=== PATIENT | female | born 1970 | race Caucasian/White ===

== ENCOUNTER → 2016-09-21 | Day surgery (SDC) | payer OTHER ==
[~2016-09-21] VITALS: Ht 165.1 cm; Wt 62.6 kg
[~2016-09-21] MED LIST: CALCIUM CARBON200 MG PO; FERROUS SULFAT325 M2 PO; PROTONIX40 M3 IV; PROTONIX40 M3 PO; SENNA PLUS TAB1 EACH PO; TRAMADOL HCL50 M1 PO; TYLENOL325 M1 PO
--- NOTE | 2016-09-21 14:06 | Operative Report ---
Operative/Inv Procedure Report Surgery Date: 09/21/16 Name of Procedure: Left partial mastectomy with wire localization Pre-Operative Diagnosis: Left breast DCIS, stage 0 breast cancer Post-Operative Diagnosis: Same Estimated Blood Loss: less than 50ml Surgeon/Typesetter Apprentice: DESTINEE WILLINGHAM MD Anesthesia: local monitored anesthesi Specimens: Left lumpectomy, cranial margin, caudal margin, medial margin, lateral margin Operative/Procedure Note Note: Patient was brought to the operating room after preoperative Wire localization was performed and the films reviewed. Clindamycin was given and left breast Just sterile fashion ChloraPrep. Anesthesia of 1% lidocaine exception Marcaine was given and a curvilinear incision was made in the left axilla. As brought into the incision. The air concern was dissected. A significant hematoma was present from the biopsy. The dissection went from the dermis down to the pectoralis fascia to encompass the hematoma. Specimen was removed and marked for orientation using margin map. Intraoperative x-ray confirmed the presence of the clip in the specimen. Additional margins were taken in the medial, lateral, cranial, caudal physicians. Clips were Used to jung the margins a lumpectomy bed. Deep tissue was proximal made using interrupted Vicryl sutures. Hemostasis was adequate. Skin was closed using a running Monocryl subcuticular stitch. Steri-Strips and sterile dressings were applied and the patient transferred to the recovery room in satisfactory condition having tolerated the procedure well.
--- NOTE | 2016-09-21 14:19 | MAMMOGRAPHY REPORT ---
EXAMINATION: MM NEEDLE LOCALIZATION SPECIMEN BREAST, LEFT CLINICAL INFORMATION: Excision of DCIS and atypical ductal hyperplasia from the upper outer quadrant of the left breast. COMPARISON: Preoperative needle localization films. TECHNIQUE SPECIMEN RADIOGRAPH: Single radiograph of the excised breast tissue is performed. FINDINGS SPECIMEN RADIOGRAPH: The specimen shows the needle and hookwire are delivered intact. The biopsy clip marker is identified in the specimen. Results were called to Dr. Grey in the operating room at the time of imaging 09/21/2016, 12:15 PM. IMPRESSION: Postoperative specimen radiograph shows excision of the targeted clip and the localization wire.
== END ==
LOC: STS 01:36 → CBW.IIU 08:30 → CBW.MAMMO 09:00
DX: D05.12 Intraductal carcinoma in situ of left breast (principal); E05.00 Thyrotoxicosis with diffuse goiter without thyrotoxic crisis or storm
CPT/HCPCS: 81025; 88305; 88307; J2001; J2250

== ENCOUNTER → 2016-10-05 | Day surgery (SDC) | payer OTHER ==
[~2016-10-05] VITALS: Ht 165.1 cm; Wt 63.5 kg
--- NOTE | 2016-10-05 09:04 | Operative Report ---
Operative/Inv Procedure Report Surgery Date: 10/05/16 Name of Procedure: Reexcision left lumpectomy Pre-Operative Diagnosis: Left breast DCIS, close caudal margin Post-Operative Diagnosis: Same Estimated Blood Loss: scant Surgeon/Fleet Mechanic: MAULIK CHOWDHURY,Rosanna Abarca, PAC Anesthesia: local monitored anesthesi Specimens: Caudal margin, Marker Mabry true margin Operative/Procedure Note Note: Patient brought to the operating room on 10/05/2016. She was placed supine on the table in given clindamycin for antibiotics. The left breast was prepped and draped in sterile fashion using ChloraPrep. Local anesthesia of 1% lidocaine mixed half percent Marcaine was given. The previous incision was opened. Seroma was drained. Cavity was explored and the caudal margin was excised widely. A caudal Marker was placed on the true margin. The wound was irrigated with sterile saline and hemostasis was achieved. A 2 x 3 low profile BioSorb Marker was placed and fastened to the surrounding breast tissue using Maxon sutures. Deep tissue was proximal made using interrupted Vicryl sutures over the marker. Skin was closed using a running Biosyn subcuticular stitch. Steri- Strips and sterile dressings were applied and the patient was transferred to the recovery room in satisfactory condition having tolerated the procedure well.
== END ==
LOC: STS 01:52
DX: D05.12 Intraductal carcinoma in situ of left breast (principal)
CPT/HCPCS: 81025; 88307; C9728; J0690; J1885; J2250

== ENCOUNTER 2016-10-13 14:57 | Inpatient (IN) | payer OTHER ==
[~2016-10-13] VITALS: Ht 165.1 cm; Wt 63.6 kg
--- NOTE | 2016-10-13 15:08 | NUR ---
TRIAGE: PATIENT TO ER FROM HOME S/P L LUMPECTOMY LAST WEEK, REPORTS "THEY GAVE ME PERCOCET AND I GOT CHEST HEAVINESS, BUT I STOPPED IT A FEW DAYS AGO AND THE HEAVINESS HASN'T GONE AWAY." 08/10 PAIN ATPRESENT, "THOUGH IT GOES UP AND DOWN." DENIES SOB/N/V/D.
--- NOTE | 2016-10-13 15:20 | NUR ---
PT PLACED ON MONITOR, NSR NOTED. REPORTS THAT YESTERDAY PASSED OUT ON HALLWAY FLOOR. STATES THAT SHE HAD SOME WINE 5-6 HOURS PRIOR. HAS BEEN TAKING PERCOCET FOR LEFT BREAST LUMPECTOMY. REPORTS PAIN IN LEFT BREAST THAT SPREADS ACROSS AND STERNAL PAIN. THE PAIN COMES AND GOES AND "IT KNOCKS THE WIND OUT OF ME".
[2016-10-13 15:58] LABS: ABSOLUTE BASOPHIL COUNT 0.1 /CUMM (0.0-0.2); ABSOLUTE EOSINOPHIL COUNT 0.1 /CUMM (0.0-0.7); ABSOLUTE GRANULOCYTE CT 9.1 /CUMM (1.4-6.5); ABSOLUTE LYMPH COUNT 1.5 /CUMM (1.2-3.4); ABSOLUTE MONOCYTE COUNT 0.8 /CUMM (0.10-0.60); BASOPHIL % 0.9 % (0.0-2.0); EOSINOPHIL % 0.8 % (0-5); GRANULOCYTE % 78.7 % (42.2-75.2); MEAN CORPUSCULAR HGB 31.3 PG (27.0-31.0); MEAN CORPUSCULAR HGB CONC 33.5 G/DL (33.0-37.0); MEAN CORPUSCULAR VOLUME 93.3 FL (81.0-99.0); MEAN PLATELET VOLUME 7.5 FL (7.4-10.4); PLATELET COUNT 324 /CUMM (130-400); RBC DISTRIBUTION WIDTH 13.6 % (11.5-14.5); RED BLOOD CELL CT 1.89 /CUMM (4.20-5.40); WHITE BLOOD CELL COUNT 11.6 /CUMM (4.8-10.8)
[2016-10-13 16:04] LABS: PT 11.8 SEC (9.4-12.5)
[2016-10-13 16:08] LABS: HEMATOCRIT 17.7 % (37-47)
--- NOTE | 2016-10-13 16:12 | NUR ---
CRITICAL TEST RESULTS [id number] DELMA LEVY 46 F TESTS AND RESULTS: HGB 5.9 HCT17.7 Results received and read back by: GUMARO WILDE Results received date and time: 10/13/16 1613 The following provider was notified of the results, and read the results back: SHALONDA CHOWDHURY Notified date and time: 10/13/16 at 1610
--- NOTE | 2016-10-13 16:48 | NUR ---
PER HOUSESTAFF PT TO BE ADMITTED TO ICU. PINK TOP SENT TO LAB
--- NOTE | 2016-10-13 16:53 | ED CARDIAC/CP/PALPITATIONS ---
See Addendum History of Present Illness General Chief Complaint: General Adult Stated Complaint: CHEST HEAVINESS,LIGHTHEADED, LUMPECTOMY WEEK PRIOR Source: patient Exam Limitations: no limitations Vital Signs & Intake/Output Vital Signs & Intake/Output Vital Signs Date Time Temp Pulse Resp B/P B/P Pulse O2 O2 Flow FiO2 Mean Ox Delivery Rate 10/14 1200 98 Room Air 10/14 0800 97.7 82 18 96/68 100 Room Air 10/14 0800 100 Room Air 10/14 0400 98 Room Air 10/14 0000 99 Room Air 10/14 0000 98.3 90 23 102/60 99 Room Air 10/13 2000 100 Room Air 10/13 1840 100.6 90 20 108/64 99 Room Air 10/13 1825 100.7 10/13 1825 100.6 97 20 115/72 98 Room Air 10/13 1825 100.7 97 20 115/72 99 Room Air 10/13 1729 100.6 10/13 1658 100.6 ED Intake and Output 10/14 0000 10/13 1200 Intake Total 630 Output Total 400 Balance 230 Intake, Blood 380 Product Intake, IV 250 Intake, Oral 0 Number 0 Bowel Movements Output, Urine 400 Patient 140 lb Weight Weight Bed scale Measurement Method Allergies Coded Allergies: azithromycin (From ZITHROMAX) (DIARRHEA 10/13/16) cephalexin (From KEFLEX) (DIARRHEA 10/13/16) tetracycline (DIARRHEA 10/13/16) Reconcile Medications No Known Home Medications Triage Note: TRIAGE: PATIENT TO ER FROM HOME S/P L LUMPECTOMY LAST WEEK, REPORTS "THEY GAVE ME PERCOCET AND I GOT CHEST HEAVINESS, BUT I STOPPED IT A FEW DAYS AGO AND THE HEAVINESS HASN'T GONE AWAY." / PAIN ATPRESENT, "THOUGH IT GOES UP AND DOWN." DENIES SOB/N/V/D. Triage Nurses Notes Reviewed? yes : No Patient currently breastfeeds: No HPI: Ms. Garcia is a 46 yo f w/ PMH of DCIS s/p 2 lumpectomy of L breast presenting to ED for fatigue, SOB and dizziness. Patient states that she had a lumpectomy on this past Saturday. Ever since she's been having increased fatigue and shortness of breath. She feels like she is unable to get a full breath in. She went to work out 2 times within the past 2 weeks and she was unable to finish her workout due to fatigue. Prior to the diagnosis of DCIS, the patient is otherwise completely healthy. She endorses subjective chills, but no fever. She denies a cough, abdominal pain, nausea, vomiting or diarrhea. She does state that she did have one melanotic stool this past week. She endorses dizziness with standing. No chest pain but she feels like her chest is tight. (JAZMINE LIZ MD) Past History Travel History Traveled to [place] past 21 day No Medical History Any Pertinent Medical History? 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 No (CONCHIS CHOWDHURY,GENEVIEVE Grace) Review of Systems Review of Systems Constitutional: Reports: see HPI, weakness. EENTM: Reports: no symptoms. Respiratory: Reports: see HPI, short of breath. Cardiovascular: Reports: no symptoms. GI: Reports: no symptoms. Genitourinary: Reports: no symptoms. Musculoskeletal: Reports: no symptoms. Skin: Reports: no symptoms. Neurological/Psychological: Reports: no symptoms. Hematologic/Endocrine: Reports: no symptoms. Immunologic/Allergic: Reports: no symptoms. All Other Systems: Reviewed and Negative (CONCHIS CHOWDHURY,GENEVIEVE Grace) Physical Exam Physical Exam General Appearance: well developed/nourished, alert, awake, moderate distress Head: atraumatic, normal appearance Eyes: Bilateral: PERRL, EOMI, pale conjunctivae. Ears, Nose, Throat: normal pharynx, normal ENT inspection Neck: normal inspection, supple, full range of motion Respiratory: normal breath sounds, chest non-tender, no respiratory distress, lungs clear Cardiovascular: regular rate/rhythm, normal peripheral pulses Gastrointestinal: normal bowel sounds, soft, non-tender, no organomegaly Rectal: heme positive stool Back: normal inspection Extremities: normal inspection, normal capillary refill, normal range of motion, no edema Neurologic/Psych: no motor/sensory deficits, awake, alert, oriented x 3, normal mood/affect Skin: intact, normal color Lymphatic: no anterior cervical [place] Core Measures ACS in differential dx? No Severe Sepsis Present: No Septic Shock Present: No (CONCHIS CHOWDHURY,GENEVIEVE Grace) Progress Differential Diagnosis: cholecystitis, hypovolemia, pneumonia, pneumothorax, pulmonary embolism, sepsis, anemia Plan of Care: Orders Procedure Date/time Status Nothing by Mouth 10/15 B Active CBC WITHOUT DIFFERENTIAL 10/15 0600 Active BASIC ELECTROLYTES PLUS BUN&CR 10/15 0600 Active Full Liquid Diet 10/14 D Complete Nothing by Mouth 10/14 B Complete CBC WITHOUT DIFFERENTIAL 10/14 1900 Active Transfer Disposition 10/14 1432 Active BLOOD PRODUCT PICKUP 10/14 1345 Active LEUKOCYTE POOR (PACKED CELLS) 10/14 1235 Active Transfer patient to 10/14 1234 Active CBC WITHOUT DIFFERENTIAL 10/14 0500 Complete TROPONIN LEVEL 10/14 0300 Complete EKG 10/14 0300 Active Wound Care/Dressing 10/14 0258 Active CBC WITHOUT DIFFERENTIAL 10/14 0110 Complete ICU LAB BUNDLE 10/14 UNK Complete CBC WITHOUT DIFFERENTIAL 10/13 2200 Complete BLOOD PRODUCT PICKUP 10/13 2128 Active TROPONIN LEVEL 10/13 2100 Complete EKG 10/13 2100 Active Wound Care/Dressing 10/13 2032 Complete Weight 10/13 2032 Active VTE Mechanical Prophylaxis 10/13 2032 Complete Vital Signs 10/13 2032 Active Turn and Reposition 10/13 2032 Complete Drains/Tubes 10/13 2032 Complete Teach/Educate 10/13 2032 Active Skin Integrity Protocol 10/13 2032 Active Skin/Pressure Ulcer Assess (Sk 10/13 2032 Active Precautions 10/13 2032 Active Pain Treatment and Response 10/13 2032 Active Nutritional Intake, Monitor 10/13 2032 Active Isolation 10/13 2032 Active CIWA 10/13 2032 Complete Patient Care Conference 10/13 2032 Active Activity/Ambulation 10/13 2032 Active Pathway - chart 10/13 184 Active PHYSICIAN CONSULT 10/13 1837 Active Add-on Test (ER Only) 10/13 1836 Active Add-on Test (ER Only) 10/13 1826 Active Add-on Test (ER Only) 10/13 1820 Active LACTIC ACID 10/13 1812 Complete BLOOD PRODUCT PICKUP 10/13 1751 Active CULTURE,URINE 10/13 1745 Active Admit to inpatient 10/13 1735 Active BLOOD CULTURE 10/13 1727 Active Pathway - chart 10/13 1726 Active Misc Message 10/13 1726 Active Code Status 10/13 1726 Active Patient Data 10/13 1706 Active URINALYSIS 10/13 1701 Complete TROPONIN LEVEL 10/13 1545 Complete House Staff 10/13 UNK Active Vital Signs 10/13 UNK Active Telemetry/Timber Repairer 10/13 UNK Active Intake & Output 10/13 UNK Active Hemoccult 10/13 UNK Active Current Medications Sig/Nicolle Start time Last Medication Dose Stop Time Status Admin Calcium Carbonate 500 MG DAILY 10/14 1230 AC 10/14 (TUMS) 1322 Pantoprazole Sodium 40 MG BID 10/14 1000 AC 10/14 (Protonix) 1136 Acetaminophen 325 MG Q6P PRN 10/13 1845 AC (Tylenol) Morphine Sulfate 2 MG Q4P PRN 10/13 1845 AC 10/14 (Morphine) 1138 Tramadol HCl 50 MG Q6 PRN 10/13 1845 AC (Ultram) Laboratory Tests 10/14/16 0855: Anion Gap 7, Estimated GFR > 60, Glucose 108 H, Calcium 7.9 L, Phosphorus 3.3, Magnesium 1.9, Total Bilirubin 0.6, AST 13 L, ALT 27, Albumin 2.6 L 10/14/16 0438: Troponin I < 0.01, CBC w Diff NO MAN DIFF REQ, RBC 2.44 L, MCV 90.4, MCH 30.6, RDW 15.5 H, MPV 8.3, Gran % 70.2, Lymphocytes % 19.4 L, Monocytes % 7.8, Eosinophils % 1.2, Basophils % 1.4, Absolute Granulocytes 7.7 H, Absolute Lymphocytes 2.1, Absolute Monocytes 0.8 H, Absolute Eosinophils 0.1, Absolute Basophils 0.1, PUBS MCHC 33.8 10/14/16 0126: CBC w Diff NO MAN DIFF REQ, RBC 2.38 L, MCV 90.0, MCH 30.4, RDW 15.4 H, MPV 7.4, Gran % 73.4, Lymphocytes % 16.8 L, Monocytes % 7.7, Eosinophils % 1.2, Basophils % 0.9, Absolute Granulocytes 8.3 H, Absolute Lymphocytes 1.9, Absolute Monocytes 0.9 H, Absolute Eosinophils 0.1, Absolute Basophils 0.1, PUBS MCHC 33.8 10/13/16 2115: Troponin I < 0.01, CBC w Diff NO MAN DIFF REQ, RBC 2.04 L, MCV 89.8, MCH 30.1, RDW 15.6 H, MPV 8.1, Gran % 73.5, Lymphocytes % 17.5 L, Monocytes % 7.7, Eosinophils % 0.7, Basophils % 0.6, Absolute Granulocytes 8.5 H, Absolute Lymphocytes 2.0, Absolute Monocytes 0.9 H, Absolute Eosinophils 0.1, Absolute Basophils 0.1, PUBS MCHC 33.5 10/13/16 1835: Lactic Acid Cancelled 10/13/161811: Lactic Acid 0.8 10/13/161744: Urinalysis HEAVY H, Urine Color YEL, Urine Clarity HAZY H, Urine pH 7.5, Ur Specific [place] 1.010, Urine Protein NEG, Urine Ketones NEG, Urine Nitrite NEG, Urine Bilirubin NEG, Urine Urobilinogen 0.2, Ur Leukocyte Esterase NEG, Ur Microscopic SEDIMENT EXAMINED, Urine RBC 1-3, Urine WBC 1-3 H, Ur Epithelial Cells MOD H, Urine Bacteria RARE H, Urine Hemoglobin NEG, Urine Glucose NEG Microbiology 10/13 181 BLOOD: Blood Culture - RES 10/13 1744 URINE ROUT: Urine Culture - RES 10/13 172 BLOOD: Blood Culture - CAN Cancelled: SPECIMEN NOT RECEIVED IN LABORATORY Patient is an otherwise well-appearing female presenting with shortness of breath and fatigue. She states she was unable to finish the gym workout earlier this week. She does endorse one episode of melanotic stool earlier this week as well. She endorses severe fatigue as well as shortness of breath. Given the history of breast cancer as well as the 2 lumpectomies within the past month, patient is moderate to high risk for PE. Additionally her EKG shows S1Q3T3. Critical result reported from the lab of /H .02/17.7. (JAZMINE LIZ MD) Initial ED EKG: normal axis, normal intervals, normal p-waves, normal QRS complex, normal sinus rhythm, tachycardic 105, S1Q3T3, flipped T-wave in III and V3 (JAZMINE LIZ MD) Departure Departure Time of Disposition: 1736 Disposition: STILL A PATIENT Condition: Stable Clinical Impression Primary Impression: Anemia associated with acute blood loss Secondary Impressions: Anemia Qualifiers: Anemia type: unspecified type Qualified Code: D64.9 - Anemia, unspecified Fever Qualifiers: Fever type: unspecified Qualified Code: R50.9 - Fever, unspecified GI bleed Qualifiers: GI bleed type/associated pathology: unspecified gastrointestinal hemorrhage type Qualified Code: K92.2 - Gastrointestinal hemorrhage, unspecified Referrals: SUDHAKAR HIDALGO MD (PCP/Family) Departure Forms: Customer Survey General Discharge Information Prescriptions: Current Visit Scripts No Known Home Medications Admission Note Spoke With: AILYN NICKERSON MD Documentation of Exam: Documentation of any treatments & extenuating circumstances including Concerns Regarding Discharge (functional status, medication knowledge or non-compliance, living conditions, etc.) that warrant an admission rather than observation: Patient is critically ill with acute blood loss anemia and GI bleed. She needs inpatient admission to the ICU for hemodynamic monitoring and blood transfusion. If patient were to be discharged to the hospital, her morbidity and mortality would be significantly increased given how critically low her blood volumes are currently. (JAZMINE LIZ MD) Resident Co-Sign Statement Statement: ED Attending supervision documentation- [X] I saw and evaluated the patient. I have also reviewed all the pertinent lab results and diagnostic results. I agree with the findings and the plan of care as documented in the Resident's documentation. [X] I have reviewed the ED Record and agree with the Resident's documentation. [] Additions or exceptions (if any) to the Resident's note and plan are summarized below: [] (GENEVIEVE BALDERRAMA MD) Critical Care Note Critical Care Note Critical Care Time: non-applicable (GENEVIEVE BALDERRAMA MD)
--- NOTE | 2016-10-13 17:15 | History & Physical ---
EMILIANA CHOWDHURY,[facility] 10/13/16 1713: General Information and HPI MD Statement: I have seen and personally examined DELMA GARCIA and documented this H&P. 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 The patient reports that following her lumpectomy she has continued to feel lethargic. She has found that over the course of the week she's become increasingly weak. She attempted to exercise and get back to her activities of daily living, however was unable to do so. Yesterday prior to admission the patient attempted to run errands at home however was unable to do so. The patient also endorses dark stool since Saturday. The patient states that she's been having one episode of dark stool on a daily basis. No Thanh Blood or evidence of clots noted. The patient also reports on the evening of 10/12/2016 she had 2 unwitnessed mechanical falls. She denies any head trauma. She denies any loss of consciousness. She denies any bowel or bladder incontinence. Mechanical falls occurred at approximately 12:30 AM as the patient was in the kitchen attempting to get some water to drink. This afternoon at the time of admission the patient reports mild chest discomfort. Chest discomfort is located in the epigastric area. Described as a dull pain. Rated a 7 out of 10 in severity. Patient also endorses decreased appetite. She endorses occasional nausea. The patient endorses chills and a fever. Patient's primary care physician is Dr. Hidalgo Patient's was at bedside throughout encounter. 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 Home Who Do You Live With? spouse Services at Home: None Primary Language: Panamanian Smoking Status: Former Smoker (30 PPD) ETOH Use: occasional use Illicit Drug Use: denies illicit drug use Living Will? no Functional Ability ADLs Independent: dressing, eating, toileting, bathing. Ambulation: independent IADLs Independent: shopping, housework, finances, food prep, telephone, transportation , medication admin. Employment History Employment Employed Profession/Employer [employer] Review of Systems Review of Systems Constitutional: Reports: chills, fever, malaise, weakness. Denies: see HPI, diaphoresis. EENTM: Denies: blurred vision, double vision, visual changes, eye pain, eye tearing, ear discharge. Cardiovascular: Reports: chest pain, palpitations, syncope. Denies: edema, orthopena, peripheral edema. Respiratory: Denies: cough, hemoptysis, orthopnea, short of breath, sputum production, stridor, wheezing. GI: Reports: abdominal pain, melena, nausea, bloody stool, changes in stool. Denies : bloating, constipation, diarrhea. Genitourinary: Denies: discharge, dysuria, frequency, hematuria, hesitation, nocturia. Musculoskeletal: Denies: back pain, gout, joint pain, joint swelling, muscle pain. Neurological/Psychological: Denies: cognitive dysfunction, confusion, depressed, dementia. Hematologic/Endocrine: Denies: bruising, bleeding, polyuria, polydipsia. Immunologic/Allergic: Denies: see HPI, splenectomy, HIV/AIDS. Colonoscopy Testing Status: Unknown if test ever done Exam & Diagnostic Data Last 24 Hrs of Vital Signs/I&O Vital Signs Date Time Temp Pulse Resp B/P B/P Pulse O2 O2 Flow FiO2 Mean Ox Delivery Rate 10/13 1840 100.6 90 20 108/64 99 Room Air 10/13 1825 100.7 10/13 1825 100.6 97 20 115/72 98 Room Air 10/13 1825 100.7 97 20 115/72 99 Room Air 10/13 1729 100.6 10/13 1658 100.6 10/13 1554 99 20 127/59 99 Room Air 10/13 1508 100.0 114 18 147/69 97 Room Air Intake & Output 10/13 1600 10/13 0800 10/13 0000 Intake Total Output Total Balance Patient 63.503 kg Weight Weight Reported by Patient Measurement Method Physical Exam General Appearance Alert, Oriented X3, Cooperative Skin No Rashes Skin Temp/Moisture Exam: Warm/Dry Sepsis Skin Exam (color): Normal for Ethnicity HEENT Atraumatic, PERRLA, EOMI, Mucous Membr. moist/pink Cardiovascular Regular Rate, Normal S1, Normal S2, Systolic Murmur Lungs Clear to Auscultation Abdomen Normal Bowel Sounds, Soft, No Tenderness, Hyperactive BS Neurological Normal Speech, Strength at 5/5 X4 Ext, Normal Tone, Sensation Intact Extremities No Clubbing, No Cyanosis, No Edema, Normal Pulses Vascular Normal Pulses, Pulses Symmetrical Breasts Breast appear nl, Left Surgical Scar, clean dry and intact. Tenderness. Upper outer Quadrant Last 24 Hrs of Labs/Arash: Laboratory Tests 10/13/16 1835: Lactic Acid Cancelled 10/13/16 1812: Lactic Acid 0.8 10/13/16 1745: Urinalysis HEAVY H, Urine Color YEL, Urine Clarity HAZY H, Urine pH 7.5, Ur Specific [place] 1.010, Urine Protein NEG, Urine Ketones NEG, Urine Nitrite NEG, Urine Bilirubin NEG, Urine Urobilinogen 0.2, Ur Leukocyte Esterase NEG, Ur Microscopic SEDIMENT EXAMINED, Urine RBC 1-3, Urine WBC 1-3 H, Ur Epithelial Cells MOD H, Urine Bacteria RARE H, Urine Hemoglobin NEG, Urine Glucose NEG 10/13/16 1629: TIBC Cancelled, D-Dimer Cancelled 10/13/16 1545: Anion Gap 8, Estimated GFR > 60, BUN/Creatinine Ratio 34.0 H, Glucose 101 H, Lactic Acid 0.9, Calcium 8.5, Iron 21 L, TIBC 338, Total Bilirubin 0.3, AST 20, ALT 35, Alkaline Phosphatase 39, Troponin I < 0.01, Total Protein 5.7 L, Albumin 3.2 L, Globulin 2.5, Albumin/Globulin Ratio 1.3, PT 11.8, INR 1.13, D- Dimer 277 H, CBC w Diff NO MAN DIFF REQ, RBC 1.89 L, MCV 93.3, MCH 31.3 H, RDW 13.6, MPV 7.5, Gran % 78.7 H, Lymphocytes % 12.9 L, Monocytes % 6.7, Eosinophils % 0.8, Basophils % 0.9, Absolute Granulocytes 9.1 H, Absolute Lymphocytes 1.5, Absolute Monocytes 0.8 H, Absolute Eosinophils 0.1, Absolute Basophils 0.1, PUBS MCHC 33.5 Microbiology 10/13 1812 BLOOD: Blood Culture - RECD 10/13 174 URINE ROUT: Urine Culture - RECD 10/13 172 BLOOD: Blood Culture - ORD Diagnostic Data EKG Results Rate 105. WI 105 Sinus Tachy S1Q3T3 CXR Results SERVICE DATE: 10/13/16-1700 EXAM TYPE: RAD - XRY-CHEST XRAY, PA AND LATERAL EXAMINATION: XR CHEST CLINICAL INFORMATION: Fever. Chest tightness. Assess for pneumonia. COMPARISON: None TECHNIQUE: 2 views of the chest were obtained. FINDINGS: Surgical materials in the region of the left axilla. The lungs are well expanded. No consolidation suspicious for pneumonia, pulmonary edema, pleural effusion, or pneumothorax. No mediastinal widening. No acute osseous abnormalities. IMPRESSION: No evidence of pneumonia. 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 She was found to be profoundly anemic as a result of chronic GI blood loss likley due to an upper GI Bleed. She seems to have had a physilogic compensation. Acute blood loss anemia. H&H low the time of admission. GI consultation, obtained, spoke with physician lactation specialist. Maintain patient nothing by mouth for now. Transfuse 2 units. Type and cross. Maintain 2 large IV bore needles. If patient deteriorates overnight may consider stat endoscopy. IV Protonix Likely will be considered for a scope in the AM or Saturday. Patient might be warranted for colonoscopy Maintain H&H above 8 given history of MVP. Acute Shortness of breath Given recent surgery as well as EKG findings of S1 Q 3 T3 Rule out PE Stat pulmonary CTA. Lower Extremity Doppler rule out DVT If evidence of pulmonary embolism begin IV heparin as per protocol. If patient's negative for DVT or PE begin mechanical DVT prophylaxis. Chest Pain Trend troponins and EKG. Initial Troponin WNL. Rule out ACS. Monitor on telemetry. Consider Cardiology Consultation is patient remains symptomatic in AM. Leukocytosis Initial Chext X-Ray Unremarkable. Likely due to stress to demargination. Continue to monitor off antibiotics. If patient remains febrile and WBC count elevated consider antibiotic coverage. Re assess breast site for abcess formation. Consider ID consult if warranted. History of breast lumpectomy Obtain records from Dr. Grey if warranted. Diet nothing by mouth for now If Patient stable overnight can consider advancing diet if the patient is not going to get scoped in the am. DVT Prophylaxis: If negative for PE and DVT, begin Mechanical Ventilation. Code Full code As Ranked By This Provider Problem List: 1. Fever Qualifiers Fever type: unspecified Qualified Code: R50.9 - Fever, unspecified 2. GI bleed Qualifiers GI bleed type/associated pathology: unspecified gastrointestinal hemorrhage type Qualified Code: K92.2 - Gastrointestinal hemorrhage, unspecified 3. Anemia associated with acute blood loss 4. Anemia Qualifiers Anemia type: unspecified type Qualified Code: D64.9 - Anemia, unspecified Core Measures/Miscellaneous Acute Coronary Syndrome ACS Diagnosis: No Cerebrovascular Accident CVA/TIA Diagnosis: No Congestive Heart Failure CHF Diagnosis: No Venous Thromboembolism VTE Risk Factors: Malignancy Myelo Disorder No Mech VTE prophylaxis d/t: VTE low risk (Needs to be ruled out), DVT of LE No VTE Pharm Prophylaxis d/t: Active bleeding VTE Diagnosis: No VTE Type: NONE VTE Confirmed by (Test): NONE Severe Sepsis Severe Sepsis Present: No Septic Shock Septic Shock Present: No Miscellaneous Documentation Attending Case Discussed With: AILYN NICKERSON MD Primary Care Physician: SUDHAKAR HIDALGO MD Patient sees these Specialists NA Level of Patient Care: Critical Care (CRI) AILYN NICKERSON MD 10/13/16 1724: Attending Review Statement Attending Statement Attending Statement: examined this patient, discuss w/resident/PA/COMPOSITE ASSEMBLER, agreed w/resident/PA/COMPOSITE ASSEMBLER, discussed with family, reviewed EMR data (avail), discussed with nursing, reviewed images, amended to note Attending Assessment/Plan: 46-year-old female with past medical history significant for 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 This has been going on from almost a week. Yesterday she felt so weak that she almost passed out. She has been noticing black stools for almost a week. She is status post second lumpectomy a week ago. Has not received any radiation or chemotherapy. In the emergency room she was found to be profoundly anemic. Her EKG showed S1, every 3 T3 pattern. Her d-dimer is only slightly high. Patient was looking pale. Orthostatics were not entered in the computer but just by sitting she was feeling very dizzy. She is tachycardic, she denies any shortness of breath. She has been completing of epigastric pain which she was attributing it to Percocet. She was avoiding food secondary to pain. Stool guaiac in the emergency room is positive. Vital Signs Date Time Temp Pulse Resp B/P B/P Pulse O2 O2 Flow FiO2 Mean Ox Delivery Rate 10/13 1658 100.6 10/13 1554 99 20 127/59 99 Room Air 10/13 1508 100.0 114 18 147/69 97 Room Air on exam; aox3, nad. looks pale. cv; s1,s2, rrr resp; clear abd; soft, tender in epigastrium, bs+ ext; no edema. Laboratory Tests 10/13 10/13 1629 1545 Chemistry Sodium (137 - 145 mmol/L) 135 L Potassium (3.5 - 5.1 mmol/L) 3.8 Chloride (98 - 107 mmol/L) 101 Carbon Dioxide (22 - 30 mmol/L) 27 Anion Gap (5 - 16) 8 BUN (7 - 17 mg/dL) 17 Creatinine (0.5 - 1.0 mg/dL) 0.5 Estimated GFR (>60 ml/min) > 60 BUN/Creatinine Ratio (7 - 25 %) 34.0 H Glucose (65 - 99 mg/dL) 101 H Lactic Acid (0.7 - 2.1 mmol/L) 0.9 Calcium (8.4 - 10.2 mg/dL) 8.5 Iron (37 - 170 ug/dL) 21 L TIBC (265 - 497 ug/dL) Cancelled 338 Total Bilirubin (0.2 - 1.3 mg/dL) 0.3 AST (14 - 36 U/L) 20 ALT (9 - 52 U/L) 35 Alkaline Phosphatase (<127 U/L) 39 Total Protein (6.3 - 8.2 g/dL) 5.7 L Albumin (3.5 - 5.0 g/dL) 3.2 L Globulin (1.9 - 4.2 gm/dL) 2.5 Albumin/Globulin Ratio (1.1 - 2.2 %) 1.3 Coagulation PT (9.4 - 12.5 SEC) 11.8 INR (0.90 - 1.19) 1.13 D-Dimer (70 - 232 ng/ml) Cancelled 277 H Hematology CBC w Diff NO MAN DIFF REQ WBC (4.8 - 10.8 /CUMM) 11.6 H RBC (4.20 - 5.40 /CUMM) 1.89 L Hgb (12.0 - 16.0 G/DL) 5.9 *L Hct (37 - 47 %) 17.7 *L MCV (81.0 - 99.0 FL) 93.3 MCH (27.0 - 31.0 PG) 31.3 H RDW (11.5 - 14.5 %) 13.6 Plt Count (130 - 400 /CUMM) 324 MPV (7.4 - 10.4 FL) 7.5 Gran % (42.2 - 75.2 %) 78.7 H Lymphocytes % (20.5 - 51.1 %) 12.9 L Monocytes % (1.7 - 9.3 %) 6.7 Eosinophils % (0 - 5 %) 0.8 Basophils % (0.0 - 2.0 %) 0.9 Absolute Granulocytes (1.4 - 6.5 /CUMM) 9.1 H Absolute Lymphocytes (1.2 - 3.4 /CUMM) 1.5 Absolute Monocytes (0.10 - 0.60 /CUMM) 0.8 H Absolute Eosinophils (0.0 - 0.7 /CUMM) 0.1 Absolute Basophils (0.0 - 0.2 /CUMM) 0.1 PUBS MCHC (33.0 - 37.0 G/DL) 33.5 ELG>>> sinus rhythm, S1,Q3,T3 pattern. A/P; 46-year-old female with the recently diagnosed DCIS left breast undergoing lumpectomy who is getting admitted with acute blood loss anemia likely secondary to GI blood loss. Patient is tachycardic, has a low-grade temp and had a syncopal episode. This all could be related to anemia but her EKG shows S1, every 3, T3 pattern. Need to rule out pulmonary embolism as she is considered as a high risk with her breast cancer history. Patient will be admitted to ICU. She will be typed and crossed, she should receive 2 units of RBCs. Please obtain 2 large bore IV lines, start the patient on IV fluids. Patient should be started on IV PPI, GI consult should be obtained today. Avoid any NSAIDS. Would recommend getting a CTA of the chest and may need LE dopplers DVT Px; ALPS if LE dopplers neg. Full code. KESHAV CHOWDHURY,MILEY 10/13/161956: Resident Review Statement Resident Statement: examined this patient, discussed with marketing intern, agreed with marketing intern, discussed with family, reviewed EMR data (avail), discussed with nursing , reviewed images, amended to note Other Findings: 46 yo female with pmh of MVP, DCIS s/p 2nd lumpectomy on 10/05/16 (1st on 09/21/16) by Dr. Grey came from home with a chief complaint of worsening fatigue/ dizziness/Lt. sided chest discomfort. After the lumbpectomy last week, she was given po percocet, and she started having epigastric pain with nausea(no vomiting) after taking pain meds. Her oral intake was decreased last week. Also, she noted dark stool from Saturday (10/08) 1-2 times per day. She had intermittent hx of melena before, but it was more consistent this time. She denies chronic pain medication use before recent percocet. She took 2 pills of motrin for headache 1DA. She denies hematochezia/hematemesis/diarrhea. She felt worsening fatigue and inability to walk up stairs due to SOB for 2 days. She also had near -sycopal episodes x 2 times last night falling on the floor due to dizziness. No LOC/head injury. She had Lt. sided chest tightness/discomfort, sharp, 7/10, non- reproducible, radiating from epigastrium from today morning associated with palpitation. She has mild chilling sensation, but denies cough/sputum, rhinorrhea, sore throat, or urinary symptoms. 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 lumpectomy site clean/no drainage/mild tenderness around dressing, soft, normal bowel sounds, non-tender, no CVA td, no LE edema, no calf tenderness, motor 5/5 all 4 extremities, sensation intact, cranial nerves grossly intact. Guiac was positive. Labs: WBC 11.6, Hb/Hct 5.9/17.7 (baseline 13.9/42 on 08/31/16), MCV 93.3, plt 324 , BUN/Cr 17/0.5, trop < 0.01, D-dimer 277, UA unremarkable CXR: No evidence of pneumonia. EKG: normal axis, III Q waves, T inv, V3 T inv 1. Acute normocytic anemia likely from upper GI bleeding: Due to significant decrease of Hb/hct, will monitor pt in ICU. Keep NPO for now, continue maintenance fluid, IV protonix, GI consult was requested. Get 2 large IV needles , will transfuse pt with 2PRBC and repeat CBC to keep hb > 7. Inform GI if there is any signs of active bleeding. 2. Lt. sided chest pain: As pt has recent surgery/fever/tachycardia/Lt. sided pleuritic chest pain with EKG changes, will get CTA/LE dopper to evaluate PE/ DVT. Will follow serial troponin/EKGs, monitor on telemetry. 3. fever/leukocytosis: CXR/UA unremarkable, blood/urine cultures were sent, no clear source of infection, will monitor off antibiocis for now. 4. s/p recent Lt. lumpectomy: continue pain management DVT ppx: ALPS on hold until DVT is ruled out by LE doppler. full code, pain pathway.
--- NOTE | 2016-10-13 17:44 | RADIOLOGY REPORT ---
EXAMINATION: XR CHEST CLINICAL INFORMATION: Fever. Chest tightness. Assess for pneumonia. COMPARISON: None TECHNIQUE: 2 views of the chest were obtained. FINDINGS: Surgical materials in the region of the left axilla. The lungs are well expanded. No consolidation suspicious for pneumonia, pulmonary edema, pleural effusion, or pneumothorax. No mediastinal widening. No acute osseous abnormalities. IMPRESSION: No evidence of pneumonia.
--- NOTE | 2016-10-13 18:23 | NUR ---
PT GOING TO ROOM 107.
--- NOTE | 2016-10-13 18:25 | NUR ---
BLOOD TRANSFUSION STARTED. PT TOLERATING WELL. OFFERS NO COMPLAINTS. VITAL SIGNS STABLE.
--- NOTE | 2016-10-13 19:18 | NUR ---
REPORT GIVEN TO FERMENTING CELLARS RECEIVER ROLY
--- NOTE | 2016-10-13 20:37 | CT SCAN REPORT ---
EXAMINATION: CT ANGIOGRAM OF THE CHEST WITH AND WITHOUT CONTRAST (CT PULMONARY ANGIOGRAM FOR PE) CLINICAL INFORMATION: Tachycardia. Syncope. Left breast surgery on 09/21/2016. COMPARISON: None. TECHNIQUE: Prior to contrast administration, noncontrast localization images were obtained. Subsequently, multidetector volumetric imaging was performed from the thoracic inlet to below the diaphragms following the administration of 58 mL Omnipaque 350 intravenous contrast. No contrast reaction reported. Sagittal, coronal, and MIP oblique sagittal reformatted images were obtained on the CT workstation, uploaded to PACS, and reviewed. Total exam dose-length product 212 mGy-cm. FINDINGS: QUALITY OF STUDY/CONTRAST BOLUS: Adequate contrast opacification of the pulmonary arterial vasculature. PULMONARY ARTERIES: No evidence of pulmonary embolism to the level of the subsegmental pulmonary arteries. No large central pulmonary emboli. THORACIC AORTA: Normal caliber of the thoracic aorta without aneurysmal dilatation. No centrally displaced intraluminal flaps to suggest aortic dissection. Variant four-vessel branching of the aortic arch, with the left vertebral artery visualized arising directly from the arch. LUNG: The lungs are well-expanded and clear without focal airspace consolidation. No pleural effusions or pneumothoraces are identified. There are no suspicious pulmonary nodules or masses. PLEURA: No pleural effusion or pneumothorax. MEDIASTINUM: Normal heart size. No pericardial effusion. No hilar or mediastinal lymphadenopathy. No evidence of septal bowing or right heart strain. CHEST WALL/AXILLA: Postsurgical changes related to recent left breast surgery with surgical clips identified within the left axilla and along the outer quadrant of the left breast. There are scattered foci of air within the left breast and left axilla. There is minimal fluid within the left axilla measuring approximately 2.1 x 2.7 cm and favored corresponds to post operative seroma. No rim-enhancing fluid collections are identified within the left breast. OSSEOUS STRUCTURES: No acute or suspicious osseous abnormality. UPPER ABDOMEN: No acute findings within the upper abdomen. No reflux of contrast into the hepatic veins to suggest elevated right heart pressures. IMPRESSION: 1. Adequate contrast opacification of the pulmonary arterial vasculature, without evidence of pulmonary embolism to the level of the subsegmental pulmonary arteries. No large central pulmonary emboli. 2. Incidental note is made of postsurgical changes and small scattered foci of air related to recent left breast surgery, with surgical clips identified along the outer aspect of the left breast as well as within the left axilla. There is minimal fluid within the left axilla, favored to represent post operative fluid. No rim-enhancing organizing fluid collections are identified within the left breast or left axilla. VTE: Negative.
--- NOTE | 2016-10-13 20:43 | ULTRASOUND REPORT ---
EXAMINATION: US TRIPLEX OF LOWER EXTREMITIES, BILATERAL CLINICAL INFORMATION: Chest pain. Tachycardia. Lumpectomy last Saturday. COMPARISON: None TECHNIQUE: Color-flow triplex imaging with spectral analysis and compression Doppler were performed on the lower extremities. FINDINGS: Respiratory variation, normal compression and augmented flow are noted throughout the lower extremities. The visualized common femoral vein, superficial femoral vein, profunda femoral vein, popliteal vein and midcalf peroneal and posterior tibial venous segments show no evidence of deep venous thrombosis. There is no Kelley's cyst. IMPRESSION: No evidence of deep venous thrombosis involving the lower extremities.
--- NOTE | 2016-10-13 21:02 | NUR ---
@2000 PT ARRIVED TO FLOOR FROM ER ALERT AND ORIENTED X3, PLACED ON ICU MONITOR HR SR 90'S NO ECTOPY. SBP MANUALLY 132/78, ON ROOM AIR 100% LUNGS CLEAR NO C/O SOB OR CHEST DISCOMFORT AT THIS TIME. PT RECEIVING 1/2 UNITS OF PRBC WITH NO SIGNS OF REACTION. DISCUSSED WITH DR. DEVINE PT WILL FINISH FIRST UNIT AND DRAW CBC AFTER THEN HANG SECOND UNIT. PT WITH NO C/O PAIN AT THIS TIME BUT DOES STATE CAN COME IN WAVES WITH "BURNING SENSATION", DENIES NEED FOR PAIN MED AT THIS TIME. PT SKIN IS INTACT NO OVERT SIGNS OF BLEEDING AT THIS TIME. ADMISSION INTERVIEW DONE, CALL PINEDA INSTRUCTIONS GIVEN, POC DISCUSSED PT VERBALIZED UNDERSTANDING, PT AT BEDSIDE. STREETSWEEPER OPERATOR ARRIVED TO DO BEDSIDE BLLE US.
[2016-10-13 22:19] LABS: ABSOLUTE BASOPHIL COUNT 0.1 /CUMM (0.0-0.2); ABSOLUTE EOSINOPHIL COUNT 0.1 /CUMM (0.0-0.7); ABSOLUTE GRANULOCYTE CT 8.5 /CUMM (1.4-6.5); ABSOLUTE MONOCYTE COUNT 0.9 /CUMM (0.10-0.60); BASOPHIL % 0.6 % (0.0-2.0); EOSINOPHIL % 0.7 % (0-5); GRANULOCYTE % 73.5 % (42.2-75.2); MEAN CORPUSCULAR HGB 30.1 PG (27.0-31.0); MEAN CORPUSCULAR HGB CONC 33.5 G/DL (33.0-37.0); MEAN CORPUSCULAR VOLUME 89.8 FL (81.0-99.0); MEAN PLATELET VOLUME 8.1 FL (7.4-10.4); PLATELET COUNT 273 /CUMM (130-400); RBC DISTRIBUTION WIDTH 15.6 % (11.5-14.5); RED BLOOD CELL CT 2.04 /CUMM (4.20-5.40); WHITE BLOOD CELL COUNT 11.6 /CUMM (4.8-10.8)
[2016-10-13 22:22] LABS: HEMATOCRIT 18.3 % (37-47)
[2016-10-14] VITALS: BP 102/60
[2016-10-14 01:35] LABS: ABSOLUTE BASOPHIL COUNT 0.1 /CUMM (0.0-0.2); ABSOLUTE EOSINOPHIL COUNT 0.1 /CUMM (0.0-0.7); ABSOLUTE GRANULOCYTE CT 8.3 /CUMM (1.4-6.5); ABSOLUTE LYMPH COUNT 1.9 /CUMM (1.2-3.4); ABSOLUTE MONOCYTE COUNT 0.9 /CUMM (0.10-0.60); BASOPHIL % 0.9 % (0.0-2.0); EOSINOPHIL % 1.2 % (0-5); GRANULOCYTE % 73.4 % (42.2-75.2); MEAN CORPUSCULAR HGB 30.4 PG (27.0-31.0); MEAN CORPUSCULAR HGB CONC 33.8 G/DL (33.0-37.0); MEAN PLATELET VOLUME 7.4 FL (7.4-10.4); PLATELET COUNT 255 /CUMM (130-400); RBC DISTRIBUTION WIDTH 15.4 % (11.5-14.5); RED BLOOD CELL CT 2.38 /CUMM (4.20-5.40); WHITE BLOOD CELL COUNT 11.3 /CUMM (4.8-10.8)
[2016-10-14 01:36] LABS: HEMATOCRIT 21.4 % (37-47)
[2016-10-14 05:17] LABS: ABSOLUTE BASOPHIL COUNT 0.1 /CUMM (0.0-0.2); ABSOLUTE EOSINOPHIL COUNT 0.1 /CUMM (0.0-0.7); ABSOLUTE GRANULOCYTE CT 7.7 /CUMM (1.4-6.5); ABSOLUTE LYMPH COUNT 2.1 /CUMM (1.2-3.4); ABSOLUTE MONOCYTE COUNT 0.8 /CUMM (0.10-0.60); BASOPHIL % 1.4 % (0.0-2.0); EOSINOPHIL % 1.2 % (0-5); GRANULOCYTE % 70.2 % (42.2-75.2); HEMATOCRIT 22.1 % (37-47); MEAN CORPUSCULAR HGB 30.6 PG (27.0-31.0); MEAN CORPUSCULAR HGB CONC 33.8 G/DL (33.0-37.0); MEAN CORPUSCULAR VOLUME 90.4 FL (81.0-99.0); MEAN PLATELET VOLUME 8.3 FL (7.4-10.4); PLATELET COUNT 272 /CUMM (130-400); RBC DISTRIBUTION WIDTH 15.5 % (11.5-14.5); RED BLOOD CELL CT 2.44 /CUMM (4.20-5.40); WHITE BLOOD CELL COUNT 10.9 /CUMM (4.8-10.8)
[2016-10-14 08:00] VITALS: BP 96/68
--- NOTE | 2016-10-14 10:31 | PN- Housestaff ---
MCKINLEY CHOWDHURY,[facility] 10/14/16 1025: Subjective Follow-up For: -Acute blood loss anemia mostly upper GI bleeding -Left chest pain Subjective: Patient was seen and examined this morning, she is lying comfortably in bed, she reported epigastric burning pain 7/10 that on and off with some acid reflux feeling. Denied any nausea, vomiting, bowel movement. Last bowel movement was yesterday of black stool. Denied chest pain, palpitation, diaphoresis, lightheadedness today. She reported improvement of generlized weakness. Patient denied any dysuria, change in the color of urine. Vital signs are stable, temperature this morning 97.8, MAXIMUM TEMPERATURE 100.7. Review of Systems Constitutional: Reports: see HPI. Objective Last 24 Hrs of Vital Signs/I&O Vital Signs Date Time Temp Pulse Resp B/P B/P Pulse O2 O2 Flow FiO2 Mean Ox Delivery Rate 10/14 0800 97.7 82 18 96/68 100 Room Air 10/14 0800 100 Room Air 10/14 0400 98 Room Air 10/14 0000 99 Room Air 10/14 0000 98.3 90 23 102/60 99 Room Air 10/13 2000 100 Room Air 10/13 1840 100.6 90 20 108/64 99 Room Air 10/13 1825 100.7 10/13 1825 100.6 97 20 115/72 98 Room Air 10/13 1825 100.7 97 20 115/72 99 Room Air 10/13 1729 100.6 10/13 1658 100.6 10/13 1554 99 20 127/59 99 Room Air 10/13 1508 100.0 114 18 147/69 97 Room Air Intake & Output 10/14 1600 10/14 0800 10/14 0000 Intake Total 1280.3 630 Output Total 1050 400 Balance 230.3 230 Intake, Blood 329 380 Product Intake, IV 951.3 250 Intake, Oral 0 0 Number 0 0 Bowel Movements Output, Urine 1050 400 Patient 63.645 kg Weight Weight Bed scale Measurement Method Physical Exam General Appearance: Alert, Oriented X3, Cooperative, No Acute Distress Skin: No Rashes, No Breakdown, No Significant Lesion Skin Temp/Moisture Exam: Warm/Dry HEENT: Atraumatic, PERRLA, EOMI, Mucous Membr. 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 She was found to be profoundly anemic as a result of chronic GI blood loss likley due to an upper GI Bleed. She seems to have had a physilogic compensation. Acute blood loss anemia. -Patient received 2 units of blood, H&H posttransfusion 7.5/22.1 -GI recommendation to transfuse 1 unit of blood, will repeat CBC at 6 PM this afternoon -GI consultation was obtained, thanks for recommendation -No signs of active bleeding today, patient can restart diet and will make her nothing by mouth at midnight for EGD tomorrow morning -Continue IV Protonix 40 mg twice a day -Toms for acid reflux -We'll DC IV fluid after starting diet Acute Shortness of breath -Improved saturating 100-98% on room air -Given recent surgery as well as EKG findings of S1 Q 3 T3 -CTA and bilateral venous Doppler did rule out PE and DVT Chest Pain -Serial troponin and EKG negative -Patient had epigastric pain on and off Leukocytosis -Initial Chext X-Ray Unremarkable -Likely due to stress to demargination -Continue to monitor off antibiotics -If patient remains febrile and WBC count elevated consider antibiotic coverage -Re assess breast site for abcess formation (history of left breast lumpectomy ( 10/05/2016)) Diet -Patient was initially restarted on regular diet, continue to complain of epigastric pain, will change to full liquid diet and advance as tolerated -Nothing by mouth at midnight DVT Prophylaxis: Alps Code Full code Consultation GI Problem List: 1. Anemia 2. Anemia associated with acute blood loss 3. GI bleed 4. Fever Pain Ratin Pain Location: Epigastric pain Pain Goal: Pain 4 or less Pain Plan: Moderate pain pathway Tomorrow's Labs & Rationales: CBC, ICU bundle KRISHAN CHOWDHURY,AILYN 10/14/16 1209: Attending MD Review Statement Attending Statement Attending MD Statement: examined this patient, discuss w/resident/PA/SHAREBROKER, agreed w/resident/PA/SHAREBROKER, reviewed EMR data (avail), discussed with nursing, discussed with case mgmt, reviewed images, amended to note Attending Assessment/Plan: Patient seen and examined, feels the same. Still c/o epigastric pain. Hemodynamically stable and H&H improved after transfusion. on exam; aox3, nad. cv; s1,s2, rrr resp; clear abd; soft, nt, bs+ ext; no edema. Laboratory Tests 10/14 10/14 0855 0438 Chemistry Sodium (137 - 145 mmol/L) 138 Potassium (3.5 - 5.1 mmol/L) 3.7 Chloride (98 - 107 mmol/L) 106 Carbon Dioxide (22 - 30 mmol/L) 25 Anion Gap (5 - 16) 7 BUN (7 - 17 mg/dL) 8 Creatinine (0.5 - 1.0 mg/dL) 0.5 Estimated GFR (>60 ml/min) > 60 Glucose (65 - 99 mg/dL) 108 H Calcium (8.4 - 10.2 mg/dL) 7.9 L Phosphorus (2.5 - 4.5 mg/dL) 3.3 Magnesium (1.6 - 2.3 mg/dL) 1.9 Total Bilirubin (0.2 - 1.3 mg/dL) 0.6 AST (14 - 36 U/L) 13 L ALT (9 - 52 U/L) 27 Troponin I (< 0.11 ng/ml) < 0.01 Albumin (3.5 - 5.0 g/dL) 2.6 L Hematology CBC w Diff NO MAN DIFF REQ WBC (4.8 - 10.8 /CUMM) 10.9 H RBC (4.20 - 5.40 /CUMM) 2.44 L Hgb (12.0 - 16.0 G/DL) 7.5 L Hct (37 - 47 %) 22.1 L MCV (81.0 - 99.0 FL) 90.4 MCH (27.0 - 31.0 PG) 30.6 RDW (11.5 - 14.5 %) 15.5 H Plt Count (130 - 400 /CUMM) 272 MPV (7.4 - 10.4 FL) 8.3 Gran % (42.2 - 75.2 %) 70.2 Lymphocytes % (20.5 - 51.1 %) 19.4 L Monocytes % (1.7 - 9.3 %) 7.8 Eosinophils % (0 - 5 %) 1.2 Basophils % (0.0 - 2.0 %) 1.4 Absolute Granulocytes (1.4 - 6.5 /CUMM) 7.7 H Absolute Lymphocytes (1.2 - 3.4 /CUMM) 2.1 Absolute Monocytes (0.10 - 0.60 /CUMM) 0.8 H Absolute Eosinophils (0.0 - 0.7 /CUMM) 0.1 Absolute Basophils (0.0 - 0.2 /CUMM) 0.1 PUBS MCHC (33.0 - 37.0 G/DL) 33.8 10/14 10/13 0126 2115 Chemistry Troponin I (< 0.11 ng/ml) < 0.01 Hematology CBC w Diff NO MAN DIFF REQ NO MAN DIFF REQ WBC (4.8 - 10.8 /CUMM) 11.3 H 11.6 H RBC (4.20 - 5.40 /CUMM) 2.38 L 2.04 L Hgb (12.0 - 16.0 G/DL) 7.2 *L 6.1 *L Hct (37 - 47 %) 21.4 L 18.3 *L MCV (81.0 - 99.0 FL) 90.0 89.8 MCH (27.0 - 31.0 PG) 30.4 30.1 RDW (11.5 - 14.5 %) 15.4 H 15.6 H Plt Count (130 - 400 /CUMM) 255 273 MPV (7.4 - 10.4 FL) 7.4 8.1 Gran % (42.2 - 75.2 %) 73.4 73.5 Lymphocytes % (20.5 - 51.1 %) 16.8 L 17.5 L Monocytes % (1.7 - 9.3 %) 7.7 7.7 Eosinophils % (0 - 5 %) 1.2 0.7 Basophils % (0.0 - 2.0 %) 0.9 0.6 Absolute Granulocytes (1.4 - 6.5 /CUMM) 8.3 H 8.5 H Absolute Lymphocytes (1.2 - 3.4 /CUMM) 1.9 2.0 Absolute Monocytes (0.10 - 0.60 /CUMM) 0.9 H 0.9 H Absolute Eosinophils (0.0 - 0.7 /CUMM) 0.1 0.1 Absolute Basophils (0.0 - 0.2 /CUMM) 0.1 0.1 PUBS MCHC (33.0 - 37.0 G/DL) 33.8 33.5 10/13 10/13 10/13 1835 1812 1745 Chemistry Lactic Acid (0.7 - 2.1 mmol/L) Cancelled 0.8 Urines Urinalysis HEAVY H Urine Color (YEL,AMB,STR) YEL Urine Clarity (CLEAR) HAZY H Urine pH (5.0 - 8.0) 7.5 Ur Specific [place] (1.001 - 1.035) 1.010 Urine Protein (NEG,<30 MG/DL) NEG Urine Ketones (NEG) NEG Urine Nitrite (NEG) NEG Urine Bilirubin (NEG) NEG Urine Urobilinogen (0.1 - 1.0 EU/dl) 0.2 Ur Leukocyte Esterase (NEG) NEG Ur Microscopic SEDIMENT EXAMINED Urine RBC (0 - 5 /HPF) 1-3 Urine WBC (0 - 2 /HPF) 1-3 H Ur Epithelial Cells (NONE,FEW) MOD H Urine Bacteria (NEG/NONE) RARE H Urine Hemoglobin (NEG) NEG Urine Glucose (N MG/DL) NEG 10/13 10/13 1629 1545 Chemistry Sodium (137 - 145 mmol/L) 135 L Potassium (3.5 - 5.1 mmol/L) 3.8 Chloride (98 - 107 mmol/L) 101 Carbon Dioxide (22 - 30 mmol/L) 27 Anion Gap (5 - 16) 8 BUN (7 - 17 mg/dL) 17 Creatinine (0.5 - 1.0 mg/dL) 0.5 Estimated GFR (>60 ml/min) > 60 BUN/Creatinine Ratio (7 - 25 %) 34.0 H Glucose (65 - 99 mg/dL) 101 H Lactic Acid (0.7 - 2.1 mmol/L) 0.9 Calcium (8.4 - 10.2 mg/dL) 8.5 Iron (37 - 170 ug/dL) 21 L TIBC (265 - 497 ug/dL) Cancelled 338 Total Bilirubin (0.2 - 1.3 mg/dL) 0.3 AST (14 - 36 U/L) 20 ALT (9 - 52 U/L) 35 Alkaline Phosphatase (<127 U/L) 39 Troponin I (< 0.11 ng/ml) < 0.01 Total Protein (6.3 - 8.2 g/dL) 5.7 L Albumin (3.5 - 5.0 g/dL) 3.2 L Globulin (1.9 - 4.2 gm/dL) 2.5 Albumin/Globulin Ratio (1.1 - 2.2 %) 1.3 Coagulation PT (9.4 - 12.5 SEC) 11.8 INR (0.90 - 1.19) 1.13 D-Dimer (70 - 232 ng/ml) Cancelled 277 H Hematology CBC w Diff NO MAN DIFF REQ WBC (4.8 - 10.8 /CUMM) 11.6 H RBC (4.20 - 5.40 /CUMM) 1.89 L Hgb (12.0 - 16.0 G/DL) 5.9 *L Hct (37 - 47 %) 17.7 *L MCV (81.0 - 99.0 FL) 93.3 MCH (27.0 - 31.0 PG) 31.3 H RDW (11.5 - 14.5 %) 13.6 Plt Count (130 - 400 /CUMM) 324 MPV (7.4 - 10.4 FL) 7.5 Gran % (42.2 - 75.2 %) 78.7 H Lymphocytes % (20.5 - 51.1 %) 12.9 L Monocytes % (1.7 - 9.3 %) 6.7 Eosinophils % (0 - 5 %) 0.8 Basophils % (0.0 - 2.0 %) 0.9 Absolute Granulocytes (1.4 - 6.5 /CUMM) 9.1 H Absolute Lymphocytes (1.2 - 3.4 /CUMM) 1.5 Absolute Monocytes (0.10 - 0.60 /CUMM) 0.8 H Absolute Eosinophils (0.0 - 0.7 /CUMM) 0.1 Absolute Basophils (0.0 - 0.2 /CUMM) 0.1 PUBS MCHC (33.0 - 37.0 G/DL) 33.5 A/P; 46-year-old female with the recently diagnosed DCIS left breast undergoing lumpectomy who is getting admitted with acute blood loss anemia likely secondary to GI blood loss. Patient is tachycardic, has a low-grade temp and had a syncopal episode. PE and DVT ruled out with neg imaging. Awaiting GI evaluation. Likely no procedures will happen today therefore can start the patient on clear liquids and keep nothing by mouth after midnight tonight for possible endoscopy tomorrow if GI recommends. H&H improved. Continue the IV PPI. DVT prophylaxis: ALPS. Once seen by GI and if Ok with them, can down grade to gen med.
--- NOTE | 2016-10-14 13:51 | Cons- Gastroenterology ---
General Information and HPI Consulting Request Date of Consult: 10/14/16 Requested By: AILYN NICKERSON MD Reason for Consult: Anemia and possible melena Source of Information: patient, old records Exam Limitations: no limitations History of Present Illness: Patient is a 46-year-old female who has had seizures related to a left breast/ axillary mass in the last 6 weeks. Her first procedure was a biopsy approximately 6 weeks ago. This was associated with a small hematoma. The second procedure was drainage of the hematoma and an lumpectomy. The third procedure was a second lumpectomy due to lack of clean margins from the first lumpectomy. This procedure was approximately 10 days ago. Following the third procedure the patient generally felt unwell. She also had epigastric discomfort. Mild nausea. Noticed that she has been passing very dark to possibly melanotic stools since then. This has been occurring on and off for approximately 1 week. She's also had a loss of appetite. She had a fourth and final procedure which was simply drainage of a flexion at the site of the previous lumpectomies. All the procedures were performed under local anesthetic and conscious sedation. She was not intubated and did not have general anesthesia. She states that at the age of 18 she had severe epigastric abdominal pains and this was investigated with a barium upper GI series. That time she was told that she had stomach ulcers. Since the age of 18 she has not been troubled by similar pains, and does not usually take antacids or other medications for symptom of peptic ulcer disease. Allergies/Medications Allergies: Coded Allergies: azithromycin (From ZITHROMAX) (DIARRHEA 10/13/16) cephalexin (From KEFLEX) (DIARRHEA 10/13/16) tetracycline (DIARRHEA 10/13/16) Home Med List: No Known Home Medications Past History Travel History Traveled to [place] past 21 day No Medical History Blood Transfusion Hx: No Neurological: NONE EENT: NONE Cardiovascular: NONE Respiratory: NONE Gastrointestinal: NONE Hepatic: NONE Renal: NONE Musculoskeletal: NONE Psychiatric: NONE Endocrine: NONE Blood Disorders: NONE Cancer(s): breast cancer (DCIS) CONFIGURATION MANAGEMENT ADVISOR/Reproductive: NONE Surgical History Surgical History: lumpectomy X2 Psychosocial History Where Do You Live? Home Who Do You Live With? spouse Services at Home: None Primary Language: Sammarinese Smoking Status: Former Smoker (30 PPD) ETOH Use: occasional use Illicit Drug Use: denies illicit drug use Living Will? no Functional Ability ADLs Independent: dressing, eating, toileting, bathing. Ambulation: independent IADLs Independent: shopping, housework, finances, food prep, telephone, transportation , medication admin. Employment History Employment: Employed Profession/Employer: [employer] Review of Systems Review of Systems: At presentation she had shortness of breath and dizziness. Lying in bed. He will generally well. Mild epigastric discomfort and burning. No nausea vomiting cough phlegm fevers chest pain dysuria shortness of breath. Exam & Diagnostic Data Vital Signs and I&O General Appearance Alert, Oriented X3, Cooperative Skin No Rashes Skin Temp/Moisture Exam: Warm/Dry Sepsis Skin Exam (color): Normal for Ethnicity HEENT Atraumatic, PERRLA, EOMI, Mucous Membr. moist/pink Cardiovascular Regular Rate, Normal S1, Normal S2, Systolic Murmur Lungs Clear to Auscultation Abdomen Normal Bowel Sounds, Soft, No Tenderness, Hyperactive BS Neurological Normal Speech, Strength at 5/5 X4 Ext, Normal Tone, Sensation Intact Extremities No Clubbing, No Cyanosis, No Edema, Normal Pulses Vascular Normal Pulses, Pulses Symmetrical Breasts Breast appear nl, Left Surgical Scar, clean dry and intact. Tenderness. Upper outer Quadrant Last 24 Hrs of Labs/Arash:Vital Signs Date Time Temp Pulse Resp B/P B/P Pulse O2 O2 Flow FiO2 Mean Ox Delivery Rate 10/14 1200 98 Room Air 10/14 0800 97.7 82 18 96/68 100 Room Air 10/14 0800 100 Room Air 10/14 0400 98 Room Air 10/14 0000 99 Room Air 10/14 0000 98.3 90 23 102/60 99 Room Air 10/13 2000 100 Room Air 10/13 1840 100.6 90 20 108/64 99 Room Air 10/13 1825 100.7 10/13 1825 100.6 97 20 115/72 98 Room Air 10/13 1825 100.7 97 20 115/72 99 Room Air 10/13 1729 100.6 10/13 1658 100.6 10/13 1554 99 20 127/59 99 Room Air 10/13 1508 100.0 114 18 147/69 97 Room Air Intake & Output 10/14 1600 10/14 0400 10/13 1600 10/13 0400 10/12 1600 10/12 0400 Intake Total 1280.3 630 Output Total 1050 400 Balance 230.3 230 Intake, Blood 329 380 Product Intake, IV 951.3 250 Intake, Oral 0 0 Number 0 0 Bowel Movements Output, Urine 1050 400 Patient 140 lb 140 lb Weight Weight Bed scale Reported by Patient Measurement Method Assessment/Plan Assessment/Recommendations: In summary we have a 46-year-old lady who has had 4 minor surgical procedures over the last 6 weeks at least one of which resulted in a moderate hematoma. In addition she has a 10 day history of epigastric discomfort and likely melena. This is all consistent with a subacute upper GI bleed. Patient is already on PPI and has received 2 units of transfusion which has brought her hematocrit into the low 20s. Patient can eat today. Nothing by mouth from midnight. For EGD tomorrow. Consult Acknowledgment - Thank you for your consult request.
--- NOTE | 2016-10-14 14:00 | NUR ---
Patient is awake, alert and oriented x's 3, able to follow commands and answer questions appropriately. NSR on tele monitor, HR= 70-90's. SBP: 90-100's. On room air, lungs clear, O2 sats 98-100%. Abdomen is soft with + bowel sounds. C/o misternal discomfort and has only been able to tolerate ice chips this morning. She did have a regular diet for lunch however c/p pain after eating. Dr. Whitaker in to assess patient and Tums po was given- She was previously medicated with IV morphine for pain at 1140 with good effect. She will have a full liquid diet for dinner. She is OOB indep to the bathroom and denies any dizziness or lightheadedness with ambulation. Skin appears intact with no areas of pressure injury noted. Steri strips noted to the left axillary/breast she is s/p a lumpectomy. Po potassium to be given once abdominal/chest discomfort improves per Dr. Wihtaker. D5 1/2 NS infusing at 75mls/hr. She has been downgraded to to Gen Med patient and is being transferred to [facility] [place]. Report given to Florinda. Patient is also to receive 1 unit prbc- BBT was entered prior to transfer and RN made aware of this as well as order for potassium which is to be given later. Pts also updated on POC. Distribution now at the bedside to transfer patient.
[2016-10-14 19:07] VITALS: BP 118/66
[2016-10-14 20:12] LABS: ABSOLUTE BASOPHIL COUNT 0.1 /CUMM (0.0-0.2); ABSOLUTE EOSINOPHIL COUNT 0.3 /CUMM (0.0-0.7); ABSOLUTE GRANULOCYTE CT 6.3 /CUMM (1.4-6.5); ABSOLUTE LYMPH COUNT 1.7 /CUMM (1.2-3.4); ABSOLUTE MONOCYTE COUNT 0.9 /CUMM (0.10-0.60); BASOPHIL % 1.3 % (0.0-2.0); EOSINOPHIL % 3.5 % (0-5); GRANULOCYTE % 67.4 % (42.2-75.2); HEMATOCRIT 25.6 % (37-47); MEAN CORPUSCULAR HGB 29.9 PG (27.0-31.0); MEAN CORPUSCULAR HGB CONC 33.7 G/DL (33.0-37.0); MEAN CORPUSCULAR VOLUME 88.8 FL (81.0-99.0); MEAN PLATELET VOLUME 7.6 FL (7.4-10.4); PLATELET COUNT 296 /CUMM (130-400); RBC DISTRIBUTION WIDTH 16.6 % (11.5-14.5); RED BLOOD CELL CT 2.89 /CUMM (4.20-5.40); WHITE BLOOD CELL COUNT 9.3 /CUMM (4.8-10.8)
[2016-10-15 07:27] VITALS: BP 120/60
--- NOTE | 2016-10-15 07:33 | PN- Housestaff ---
CONNIE CHOWDHURY,STEFANIA 10/15/16 0733: Subjective Follow-up For: Acute blood loss anemia, secondary to GI bleeding Complaints: no complaints Subjective: I followed up and examined the patient today. She is resting comfortably in bed , does not have any complaints, is comfortable, and is awaiting upper GI endoscopy later today. Vitals have been stable, her repeat hemoglobin last night was 8.9 after the third blood transfusion. She was concerned about her breast MRI that was scheduled for today, and was reassured that it could be planned as an outpatient after she is discharged. I would call the MRI center and let them know that the patient is currently admitted and thus requires postponing the date. Review of Systems Constitutional: Reports: no symptoms. Objective Last 24 Hrs of Vital Signs/I&O Vital Signs Date Time Temp Pulse Resp B/P B/P Pulse O2 O2 Flow FiO2 Mean Ox Delivery Rate 10/15 0727 98.7 64 17 120/60 100 Room Air 10/14 1907 98.2 78 16 118/66 98 10/14 1200 98 Room Air Intake & Output 10/15 1600 10/15 0800 10/15 0000 Intake Total 0 Output Total Balance 0 Intake, IV 0 Intake, Oral 0 Number 0 Bowel Movements Physical Exam General Appearance: Alert, Oriented X3, Cooperative, No Acute Distress Other Physical Findings: Skin: No Rashes, No Breakdown, No Significant Lesion Skin Temp/Moisture Exam: Warm/Dry HEENT: Atraumatic, PERRLA, EOMI, Mucous Membr. moist/pink Neck: Supple, No JVD Cardiovascular: Regular Rate, Normal S1, Normal S2, No Murmurs Lungs: Clear to Auscultation, Normal Air Movement Abdomen: Normal Bowel Sounds, Soft, No Tenderness Neurological: Normal Gait, Normal Speech, grossly intact Extremities: No Clubbing, No Cyanosis, No Edema, Normal Pulses, No Tenderness/ Swelling Current Medications: Current Medications Sig/Nicolle Start time Last Medication Dose Route Stop Time Status Admin Acetaminophen 325 MG Q6P PRN 10/13 1845 AC PO Calcium Carbonate 500 MG DAILY 10/14 1230 AC 10/15 PO 1014 Dextrose/Sodium 1,000 ML Q13H 10/14 1315 DC 10/14 Chloride IV 1407 Dextrose/Sodium 1,000 ML Q8H 10/13 1830 DC 10/14 Chloride IV 1136 Morphine Sulfate 2 MG Q4P PRN 10/13 1845 AC 10/14 IV 1138 Pantoprazole Sodium 40 MG BID 10/14 1000 AC 10/15 IV 1014 Polyethylene Glycol 17 GM DAILY NEEDED PRN 10/15 1100 AC PO Potassium Chloride 40 MEQ ONCE ONE 10/14 1230 DC 10/14 PO 10/14 [id number] Senna/Docusate Sodium 1 TAB BID PRN 10/15 1100 AC PO Tramadol HCl 50 MG Q6 PRN 10/13 1845 AC 10/15 PO 1023 Last 24 Hrs of Lab/Arash Results Last 24 Hrs of Labs/Mics: Laboratory Tests 10/15/16 0842: Total Beta HCG Cancelled 10/15/16 0610: Anion Gap 9, Estimated GFR > 60, BUN/Creatinine Ratio 13.3, Total Beta HCG NEGATIVE, CBC w Diff NO MAN DIFF REQ, RBC 2.95 L, MCV 88.2, MCH 30.2, RDW 16.9 H, MPV 8.3, Gran % 57.7, Lymphocytes % 26.4, Monocytes % 9.0, Eosinophils % 5.6 H, Basophils % 1.3, Absolute Granulocytes 4.6, Absolute Lymphocytes 2.1, Absolute Monocytes 0.7 H, Absolute Eosinophils 0.4, Absolute Basophils 0.1, PUBS MCHC 34.2 10/14/161937: CBC w Diff NO MAN DIFF REQ, RBC 2.89 L, MCV 88.8, MCH 29.9, RDW 16.6 H, MPV 7.6, Gran % 67.4, Lymphocytes % 18.1 L, Monocytes % 9.7 H, Eosinophils % 3.5, Basophils % 1.3, Absolute Granulocytes 6.3, Absolute Lymphocytes 1.7, Absolute Monocytes 0.9 H, Absolute Eosinophils 0.3, Absolute Basophils 0.1, PUBS MCHC 33.7 Assessment/Plan Assessment: Ms Garcia is a 46-year-old lady with past medical history of MVP, 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 She was found to be profoundly anemic as a result of chronic GI blood loss likley due to an upper GI Bleed. She seems to have had a physilogic compensation. Acute blood loss anemia, requiring transfusion -Patient received 3 units of blood, H&H posttransfusion 8.9/26.0. -GI consultation was obtained, thanks for recommendation -No signs of active bleeding today, patient is undergoing an upper GI endoscopy later today and has been kept nil per oral today -Continue IV Protonix 40 mg twice a day for the time being -Tums for acid reflux Acute Shortness of breath -Improved, saturating 100-98% on room air -Given recent surgery as well as EKG findings of S1 Q 3 T3 -CTA and bilateral venous Doppler ruled out PE and DVT Chest Pain -Serial troponin and EKG negative, ACS ruled out -Patient had epigastric pain on and off Leukocytosis -Initial Chext X-Ray Unremarkable -Likely due to stress to demargination -Continue to monitor off antibiotics -If patient remains febrile and WBC count elevated consider antibiotic coverage -Re assess breast site for abcess formation if febrile (history of left breast lumpectomy (10/05/2016)) Diet -Patient was initially restarted on regular diet, upon which she complained of epigastric pain, and was placed on full liquid diet and will advance as tolerated after EGD today DVT Prophylaxis: Alps Code Full code Consultation GI Problem List: 1. Acute blood loss anemia 2. Status post breast lumpectomy Pain Ratin Pain Location: - Pain Goal: Pain 4 or less Pain Plan: prn Tomorrow's Labs & Rationales: CBC to f/u blood loss anemia MARCIA CHOWDHURY,BARBARA 10/15/16 1307: Attending MD Review Statement Attending Statement Attending Statement: examined this patient, discuss w/resident/PA/FLIGHT OPERATIONS MANAGER, agreed w/resident/PA/FLIGHT OPERATIONS MANAGER, reviewed EMR data (avail), discussed with nursing, discussed with case mgmt, amended to note Attending Assessment/Plan: Patient seen and examined. Lying in bed not in acute distress. No acute events overnight. Medical records reviewed. She received 1 unit of PRBC yesterday for total of 3 units during this admission. She denies any lack of bloody stools overnight. She is scheduled to undergo EGD today to rule out upper GI bleed as cause of her anemia. She will follow up with her breast surgeon as an outpatient on discharge. Anticipate discharge if her hemoglobin level remained stable in the next 24 hours and not further interventions are required post EGD today.
[2016-10-15 08:37] LABS: ABSOLUTE BASOPHIL COUNT 0.1 /CUMM (0.0-0.2); ABSOLUTE EOSINOPHIL COUNT 0.4 /CUMM (0.0-0.7); ABSOLUTE GRANULOCYTE CT 4.6 /CUMM (1.4-6.5); ABSOLUTE LYMPH COUNT 2.1 /CUMM (1.2-3.4); ABSOLUTE MONOCYTE COUNT 0.7 /CUMM (0.10-0.60); BASOPHIL % 1.3 % (0.0-2.0); EOSINOPHIL % 5.6 % (0-5); GRANULOCYTE % 57.7 % (42.2-75.2); MEAN CORPUSCULAR HGB 30.2 PG (27.0-31.0); MEAN CORPUSCULAR HGB CONC 34.2 G/DL (33.0-37.0); MEAN CORPUSCULAR VOLUME 88.2 FL (81.0-99.0); MEAN PLATELET VOLUME 8.3 FL (7.4-10.4); PLATELET COUNT 318 /CUMM (130-400); RBC DISTRIBUTION WIDTH 16.9 % (11.5-14.5); RED BLOOD CELL CT 2.95 /CUMM (4.20-5.40); WHITE BLOOD CELL COUNT 7.9 /CUMM (4.8-10.8)
--- NOTE | 2016-10-15 14:12 | Proc Note Endoscopy ---
Endoscopy Procedure Medical History: unchanged (see meditech consult) Mental Status: alert/oriented Heart/Lung Eval Prior to Sedation: within normal limits Candidate for Sedation? Yes Procedure Date: 10/15/16 Procedure Type: EGD w/biopsy Postal Inspector: Darian Leonard MD ASA Classification: II Indications: Melena, anemia. Instrument: diagnostic gastroscope Meds Received: MAC Patient's Tolerance: good Complications: none Extent Reached: second part of duodenum Procedure: After getting written informed consent the patient was placed in the left lateral decubitus position with pulse oximetry, cardiac monitoring, and supplemental oxygen given. A bite block was inserted and IV sedation was given until the desired effect was achieved. A high definition upper Olympus endoscope was then inserted into the mouth and advanced to the second portion of the duodenum with little difficulty. Retroflexed views and photodocumentation was obtained. Findings: Esophagus: The esophageal mucosa was grossly normal in appearance there was a normal-appearing Z line at 40 cm from the incisors. Stomach: Within the antrum was a large polypoid-type mass which was immediately proximal to, but not involving the pylorus which was patent and easily traversable by the upper endoscope. The mass was friable and irregular in appearance. The mass was biopsied with multiple passes of a cold biopsy forceps and was sent to pathology for further evaluation. The remainder of the gastric mucosa was grossly normal in appearance. Random biopsies were also obtained from the antrum and body of the stomach with cold biopsy forceps and were sent to pathology for further evaluation. Retroflexed views were normal and did not reveal a significant hiatal hernia. There was a moderate amount of liquid and some solid food in the body and fundus. Distention and peristalsis of the stomach appeared normal. Duodenum: The duodenal bulb was minimally erythematous, but there were no ulcers or erosions appreciated. The duodenal sweep and folds are grossly normal in appearance and there was bile appreciated throughout to the second portion of the duodenum. Impression: 1. Antral mass causing a partial gastric outlet obstruction potentially malignant status post biopsies. 2. Mild nonerosive duodenitis status post random gastric biopsies. Recommendations: 1. Her diet should be advanced as tolerated. 2. She should be placed on oral iron supplementation. 3. Follow hemoglobin and transfuse as needed to keep her hemoglobin greater than 8 or as per cardiology recommendations. 4. She should follow up the pathology results with me as an outpatient. 5. Would check an abdominal and pelvic ct scan with po and iv contrast which can be also be done as an outpatient. CC: ROCKY CHOWDHURY,SUDHAKAR Rodrigues
[2016-10-15 14:49] VITALS: BP 130/80
[2016-10-15 22:11] VITALS: BP 126/78
[2016-10-16 06:43] VITALS: BP 110/70
--- NOTE | 2016-10-16 07:15 | PN- Housestaff ---
CONNIE CHOWDHURY,STEFANIA 10/16/16 0715: Subjective Follow-up For: Acute blood loss anemia, 2/2 to GI bleeding; Partial gastric outlet obstruction, 2/2 gastric mass Complaints: no complaints Subjective: I followed up and examined the patient today. She is resting comfortably in bed , does not have any complaints, is tolerating her food well, which is mechanical soft ground for solids and regular attendance for liquid according to GI services. Her vitals have been stable, and no overnight issues. I sat down and discussed about the findings of upper GI endoscopy with the patient today. While we await for the biopsy, patient seems to be understand the gravity of the situation, and will follow up with her biopsy. Review of Systems Constitutional: Reports: no symptoms. Objective Last 24 Hrs of Vital Signs/I&O Vital Signs Date Time Temp Pulse Resp B/P B/P Pulse O2 O2 Flow FiO2 Mean Ox Delivery Rate 10/16 1730 98.4 10/16 1423 99.4 80 20 120/80 99 Room Air 10/16 0643 98.6 75 20 110/70 97 Room Air 10/15 2211 99.2 65 20 126/78 98 Room Air Intake & Output 10/16 1600 10/16 0800 10/16 0000 Intake Total 1000 0 450 Output Total Balance 1000 0 450 Intake, IV 0 Intake, Oral 1000 0 450 Number 0 Bowel Movements Physical Exam General Appearance: Alert, Oriented X3, Cooperative, No Acute Distress Other Physical Findings: Skin: No Rashes, No Breakdown, No Significant Lesion Skin Temp/Moisture Exam: Warm/Dry HEENT: Atraumatic, PERRLA, EOMI, Mucous Membr. moist/pink Neck: Supple, No JVD Cardiovascular: Regular Rate, Normal S1, Normal S2, No Murmurs Lungs: Clear to Auscultation, Normal Air Movement Abdomen: Normal Bowel Sounds, Soft, No Tenderness Neurological: Normal Gait, Normal Speech, grossly intact Extremities: No Clubbing, No Cyanosis, No Edema, Normal Pulses, No Tenderness/ Swelling Current Medications: Current Medications Sig/Nicolle Start time Last Medication Dose Route Stop Time Status Admin Acetaminophen 325 MG Q6P PRN 10/13 1845 AC PO Calcium Carbonate 500 MG DAILY 10/14 1230 AC 10/16 PO 1318 Ferrous Sulfate 325 MG BID 10/15 2200 AC 10/16 PO 0910 Magnesium Hydroxide 30 ML AT BEDTIME 10/16 2200 DC PO 10/16 220 Magnesium Hydroxide 30 ML AT BEDTIME 10/16 1730 DC 10/16 PO 10/16 1731 1729 Morphine Sulfate 2 MG Q4P PRN 10/13 1845 AC 10/14 IV 1138 Pantoprazole Sodium 40 MG BID 10/14 1000 AC 10/16 IV 0912 Patient Medication 1 ED .STK-MED ONE 10/[address] Teaching ED 10/16 1355 Polyethylene Glycol 17 GM DAILY NEEDED PRN 10/15 1100 AC 10/16 PO 0909 Senna/Docusate Sodium 1 TAB BID PRN 10/15 1100 AC 10/16 PO 0909 Tramadol HCl 50 MG Q6 PRN 10/13 1845 AC 10/15 PO 2204 Last 24 Hrs of Lab/Arash Results Last 24 Hrs of Labs/Mics: Laboratory Tests 10/16/16 1220: CBC w Diff NO MAN DIFF REQ, RBC 3.19 L, MCV 89.0, MCH 30.1, RDW 15.1 H, MPV 7.3 L, Gran % 69.8, Lymphocytes % 18.5 L, Monocytes % 6.4, Eosinophils % 4.7, Basophils % 0.6, Absolute Granulocytes 5.8, Absolute Lymphocytes 1.5, Absolute Monocytes 0.5, Absolute Eosinophils 0.4, Absolute Basophils 0.1, PUBS MCHC 33.9 Assessment/Plan Assessment: Ms Garcia is a 46-year-old lady with past medical history of MVP, 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 She was found to be profoundly anemic as a result of chronic GI blood loss likley due to an upper GI Bleed. She seems to have had a physilogic compensation. Acute blood loss anemia, requiring transfusion -Patient received 3 units of blood, H&H posttransfusion 8.9/26.0. Today her H&H is 9.6 and 28.4 respectively. -GI consultation was obtained, thanks for recommendation -No signs of active bleeding today, patient is undergoing an upper GI endoscopy which revealed partial gastric outlet obstruction, secondary to gastric mass, of which a biopsy sample was taken. -Continue IV Protonix 40 mg twice a day for the time being -Tums for acid reflux Acute Shortness of breath -Improved, saturating 100-98% on room air -Given recent surgery as well as EKG findings of S1 Q 3 T3 -CTA and bilateral venous Doppler ruled out PE and DVT Chest Pain -Serial troponin and EKG negative, ACS ruled out -Patient had epigastric pain on and off Leukocytosis -Initial Chext X-Ray Unremarkable -Likely due to stress to demargination -Continue to monitor off antibiotics -If patient remains febrile and WBC count elevated consider antibiotic coverage -Re assess breast site for abcess formation if febrile (history of left breast lumpectomy (10/05/2016)) Diet -Patient was initially restarted on regular diet, upon which she complained of epigastric pain, and was placed on full liquid diet and is finally on mechanical soft ground diet with regular thin liquids DVT Prophylaxis: Alps Code Full code Consultation GI Problem List: 1. Acute blood loss anemia 2. Gastric mass 3. Status post breast lumpectomy 4. GI bleed Pain Ratin Pain Location: - Pain Goal: Pain 4 or less Pain Plan: prn Tomorrow's Labs & Rationales: ALIA KENNEDY MD,BARBARA 10/16/16 1237: Attending MD Review Statement Attending Statement Attending MD Statement: examined this patient, discuss w/resident/PA/CYBER SECURITY SPECIALIST, agreed w/resident/PA/CYBER SECURITY SPECIALIST, reviewed EMR data (avail), discussed with nursing, discussed with case mgmt, amended to note Attending Assessment/Plan: Patient seen and examined. Lying comfortably in bed not in any acute distress. No issues overnight. EGD findings noted. Findings were discussed with the patient. I did notify patient's breast surgeon Dr. Tammy Grey about the findings yesterday. Recommendations are to involve surgical oncology in the case. Patient currently denies any nausea vomiting. She is tolerating a clear liquid diet. She reports some epigastric discomfort. On examination abdomen is nondistended soft with mild tenderness in epigastric region. There is no guarding. There is no rebound. She is passing flatus. Recommendations: -Hemoglobin level has been stable status post transfusion 48 hours ago. -Advance to mechanical soft diet. Monitor closely for tolerance. EGD did show evidence of partial gastric outlet obstruction. -Please contact surgical oncologist Tawanda Tony MD as recommended by the surgical service. -She tolerates her diet and had no further intervention is planned in the hospital to be discharged home tomorrow. She is to follow-up with the gastroenterology service as an outpatient for results of the biopsy.
--- NOTE | 2016-10-16 09:02 | PN- General Surgery ---
Surgical Brief Attending Note Brief Attending Note: Patient of Dr. Grey, who discussed case with me this morning. Patient not seen. Pathology pending. Surgical consultation with Dr. Tony (surgical oncology) should be undertaken for further workup and operative planning.
[2016-10-16 12:30] LABS: ABSOLUTE BASOPHIL COUNT 0.1 /CUMM (0.0-0.2); ABSOLUTE EOSINOPHIL COUNT 0.4 /CUMM (0.0-0.7); ABSOLUTE GRANULOCYTE CT 5.8 /CUMM (1.4-6.5); ABSOLUTE LYMPH COUNT 1.5 /CUMM (1.2-3.4); ABSOLUTE MONOCYTE COUNT 0.5 /CUMM (0.10-0.60); BASOPHIL % 0.6 % (0.0-2.0); EOSINOPHIL % 4.7 % (0-5); GRANULOCYTE % 69.8 % (42.2-75.2); HEMATOCRIT 28.4 % (37-47); MEAN CORPUSCULAR HGB 30.1 PG (27.0-31.0); MEAN CORPUSCULAR HGB CONC 33.9 G/DL (33.0-37.0); MEAN PLATELET VOLUME 7.3 FL (7.4-10.4); PLATELET COUNT 457 /CUMM (130-400); RBC DISTRIBUTION WIDTH 15.1 % (11.5-14.5); RED BLOOD CELL CT 3.19 /CUMM (4.20-5.40); WHITE BLOOD CELL COUNT 8.3 /CUMM (4.8-10.8)
--- NOTE | 2016-10-16 13:57 | Cons- General Surgery ---
General Information and HPI Consulting Request Date of Consult: 10/16/16 Requested By: BARBARA KENNEDY M.D Allergies/Medications Allergies: Coded Allergies: azithromycin (From ZITHROMAX) (DIARRHEA 10/13/16) cephalexin (From KEFLEX) (DIARRHEA 10/13/16) tetracycline (DIARRHEA 10/13/16) Home Med List: No Known Home Medications Current Medications: I reviewed Current Medications Sig/Nicolle Start time Last Medication Dose Route Stop Time Status Admin Acetaminophen 325 MG Q6P PRN 10/13 1845 AC PO Calcium Carbonate 500 MG DAILY 10/14 1230 AC 10/16 PO 1318 Chlorhexidine 1 GM .STK-MED ONE 10/15 1449 DC Gluconate TOP 10/15 1450 Ferrous Sulfate 325 MG BID 10/15 2200 AC 10/16 PO 0910 Morphine Sulfate 2 MG Q4P PRN 10/13 1845 AC 10/14 IV 1138 Pantoprazole Sodium 40 MG BID 10/14 1000 AC 10/16 IV 0912 Patient Medication 1 ED .STK-MED ONE 10/16 1354 DC Teaching ED 10/16 1355 Polyethylene Glycol 17 GM DAILY NEEDED PRN 10/15 1100 AC 10/16 PO 0909 Senna/Docusate Sodium 1 TAB BID PRN 10/15 1100 AC 10/16 PO 0909 Tramadol HCl 50 MG Q6 PRN 10/13 1845 AC 10/15 PO 2204 Past History Medical History Blood Transfusion Hx: No Neurological: NONE EENT: NONE Cardiovascular: NONE Respiratory: NONE Gastrointestinal: NONE Hepatic: NONE Renal: NONE Musculoskeletal: NONE Psychiatric: NONE Endocrine: NONE Blood Disorders: NONE Cancer(s): breast cancer (DCIS) 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 Home Who Do You Live With? spouse Services at Home: None Primary Language: Japanese Smoking Status: Former Smoker (30 PPD) ETOH Use: occasional use Illicit Drug Use: denies illicit drug use Living Will? no Functional Ability ADLs Independent: dressing, eating, toileting, bathing. Ambulation: independent IADLs Independent: shopping, housework, finances, food prep, telephone, transportation , medication admin. Employment History Employment: Employed Profession/Employer: [employer] Exam & Diagnostic Data Vital Signs and I&O I reviewed Vital Signs Date Time Temp Pulse Resp B/P B/P Pulse O2 O2 Flow FiO2 Mean Ox Delivery Rate 10/16 0643 98.6 75 20 110/70 97 Room Air 10/15 2211 99.2 65 20 126/78 98 Room Air 10/15 1449 97.5 92 20 130/80 100 Room Air I reviewed Intake & Output 10/16 0800 10/16 0000 10/15 1600 10/15 0800 10/15 0000 Intake Total 0 450 0 0 Output Total Balance 0 450 0 0 Intake, IV 0 0 0 Intake, Oral 0 450 0 0 Number 0 0 0 Bowel Movements Last 24 Hours of Labs: I reviewed Laboratory Tests 10/16 1220 Hematology CBC w Diff NO MAN DIFF REQ WBC (4.8 - 10.8 /CUMM) 8.3 RBC (4.20 - 5.40 /CUMM) 3.19 L Hgb (12.0 - 16.0 G/DL) 9.6 L Hct (37 - 47 %) 28.4 L MCV (81.0 - 99.0 FL) 89.0 MCH (27.0 - 31.0 PG) 30.1 RDW (11.5 - 14.5 %) 15.1 H Plt Count (130 - 400 /CUMM) 457 H MPV (7.4 - 10.4 FL) 7.3 L Gran % (42.2 - 75.2 %) 69.8 Lymphocytes % (20.5 - 51.1 %) 18.5 L Monocytes % (1.7 - 9.3 %) 6.4 Eosinophils % (0 - 5 %) 4.7 Basophils % (0.0 - 2.0 %) 0.6 Absolute Granulocytes (1.4 - 6.5 /CUMM) 5.8 Absolute Lymphocytes (1.2 - 3.4 /CUMM) 1.5 Absolute Monocytes (0.10 - 0.60 /CUMM) 0.5 Absolute Eosinophils (0.0 - 0.7 /CUMM) 0.4 Absolute Basophils (0.0 - 0.2 /CUMM) 0.1 PUBS MCHC (33.0 - 37.0 G/DL) 33.9 Assessment/Plan Assessment/Plan Patient seen and examined pathology pending full consult to follow patient may need a distal gastrectomy but not emergently Consult Acknowledgment - Thank you for your consult request.
[2016-10-16 14:23] VITALS: BP 120/80
--- NOTE | 2016-10-16 16:31 | Patient Discharge Instructions ---
Discharge Instructions General Discharge Information You were seen/treated for: Symptomatic anemia, requiring blood transfusion; Gastric mass, causing partial gastric outlet obstruction You had these procedures: Upper GI endoscopy on 10/15/2016 Watch for these problems: Vomiting, abdominal pain, bloody stool, abdominal distention Special Instructions: Follow-up with her primary care physician within 7 days of discharge. Follow-up with gastroenterology service within 7 days of discharge for discussion about biopsy results, or earlier if necessary. Follow-up with surgical team within 7 days of discharge. Gastroenterology service has recommended mechanical soft/ground solid foods and regular thin liquid as dietary consistency recommendation. Please return to emergency if symptoms worsen. Diet Continue normal diet: Yes Recommended Diet: Heart Healthy Activity Full Activity/No Limits: No Activity Self Limited: Yes Acute Coronary Syndrome Inclusion Criteria At DC or during hospital stay patient has or had the following: ACS DIAGNOSIS No Discharge Core Measures Meds if any: Prescribed or Continued at Discharge Meds if any: NOT Prescribed or Continued at Discharge Congestive Heart Failure Inclusion Criteria At DC or during hospital stay patient has or had the following: CHF DIAGNOSIS No Discharge Core Measures Meds if any: Prescribed or Continued at Discharge Meds if any: NOT Prescribed or Continued at Discharge Cerebrovascular accident Inclusion Criteria At DC or during hospital stay patient has or had the following: CVA/TIA Diagnosis No Discharge Core Measures Meds if any: Prescribed or Continued at Discharge Meds if any: NOT Prescribed or Continued at Discharge Venous thromboembolism Inclusion Criteria VTE Diagnosis No VTE Type NONE VTE Confirmed by (Test) NONE Discharge Core Measures - Per Current guidelines, there needs to be overlap - treatment for the first 5 days of Warfarin therapy. - If discharged on Warfarin prior to 5 days of - overlap therapy, the patient will need to be - assessed for post discharge needs including - *Post discharge parental anticoagulation - *Warfarin and/or parental anticoagulation education - *Follow up date to check INR post discharge At least 5 days overlap therapy as Inpatient No Meds if any: Prescribed or Continued at Discharge Note: Overlap Therapy is Warfarin and Anticoagulant Meds if any: NOT Prescribed or Continued at Discharge
[2016-10-16] MEDS ORDERED: PROTONIX40 M3 IV (16:39)
[2016-10-16] MEDS ORDERED: FERROUS SULFAT325 M2 PO (16:39)
[2016-10-16] MEDS ORDERED: TRAMADOL HCL50 M1 PO (16:39)
[2016-10-16] MEDS ORDERED: SENNA PLUS TAB1 EACH PO (16:39)
[2016-10-16] MEDS ORDERED: TYLENOL325 M1 PO (16:39)
[2016-10-16] MEDS ORDERED: CALCIUM CARBON200 MG PO (16:39)
--- NOTE | 2016-10-16 17:02 | CT SCAN REPORT ---
EXAMINATION: CT ABDOMEN WITHOUT AND WITH CONTRAST CLINICAL INFORMATION: Breast cancer. Vomiting blood. COMPARISON: Chest CT 10/13/2016. No prior abdominal CT. TECHNIQUE: Contiguous axial thin section helical images of the abdomen were performed before and after the administration of 94 mL Optiray 320 intravenous contrast. The data set was reformatted in the coronal and sagittal planes and reviewed on an independent workstation. DLP: 358 mGy-cm FINDINGS: LUNG BASES: The visualized lung bases are unremarkable. LIVER, GALLBLADDER, AND BILIARY TREE: The liver is normal in size, shape, and attenuation. No focal hepatic lesion or biliary ductal dilatation is present. Specifically, no arterially enhancing hepatic lesions. No areas of early washout on the portal venous phase. The gallbladder is normally distended. There is a calculus in the fundus. No gallbladder wall thickening or adjacent inflammatory change. PANCREAS: Unremarkable. SPLEEN: Unremarkable. ADRENAL GLANDS: Unremarkable. KIDNEYS AND URETERS: The kidneys are normal in size, shape, and attenuation. No hydronephrosis, hydroureter, or calculi seen. No perinephric stranding. GASTROINTESTINAL TRACT: There is a fat attenuation mass in the region of the gastric antrum. This measures 3.7 x 2.6 x 2.8 cm. This results in luminal narrowing of the stomach. This is present along the wall of the greater curvature of the stomach. There is heterogeneous internal attenuation. The visualized small bowel is unremarkable. The visualized colon demonstrates no wall thickening or inflammation. ABDOMINAL WALL: No significant hernia is appreciated. LYMPH NODES: There is a single prominent lymph node adjacent to the gastric antrum measuring 1.5 x 0.8 cm, coronal image 28/83. VASCULAR: Unremarkable. OSSEOUS STRUCTURES: No acute or suspicious osseous abnormality. Mild degenerative changes in the spine. IMPRESSION: 1. Unremarkable appearance of the liver. No hepatic mass. 2. Fat attenuation mass in the gastric antrum. This appears to be involved along the wall of the greater curvature of the stomach. While this may represent a lipoma, there is some heterogeneous attenuation internally, and a malignant process is not excluded. There is a single adjacent prominent lymph node. This could be further evaluated by endoscopy. 3. Cholelithiasis.
[2016-10-16 22:25] VITALS: BP 148/88
[2016-10-17 06:49] VITALS: BP 136/80
--- NOTE | 2016-10-17 07:06 | PN- Housestaff ---
CONNIE CHOWDHURY,STEFANIA 10/17/16 0706: Subjective Follow-up For: Acute blood loss anemia, 2/2 to GI bleeding; Partial gastric outlet obstruction, 2/2 gastric mass Complaints: no complaints Subjective: I followed up and examined the patient today. She is resting comfortably in a chair, not in distress, doesn't have any complaints, is tolerating her food well , vitals have been stable, no overnight issues. Upon questioning, patient seemed to be distressed by the recent findings of her upper GI endoscopy, that showed a gastric mass with partial gastric outlet obstruction. She was confused about the plan of care although it was discussed yesterday as well. Patient was seen by Tawanda Tony MD, yesterday and suggested to wait for the biopsy results and depending on it, a possible partial gastrectomy could be one of the options for gastric mass that was seen recently. We talked about it, and the patient was explained about the waiting time for biopsy, and the possible outcomes, including it being arrogant, and treatment options. However nothing can be determined mind without getting biopsy results first. Patient seems to understand the discussion, and agrees to the plan. Review of Systems Constitutional: Reports: no symptoms. Objective Last 24 Hrs of Vital Signs/I&O Vital Signs Date Time Temp Pulse Resp B/P B/P Pulse O2 O2 Flow FiO2 Mean Ox Delivery Rate 10/17 0649 98.4 76 16 136/80 100 10/16 2225 97.7 62 20 148/88 100 10/16 1730 98.4 Intake & Output 10/17 1600 10/17 0800 10/17 0000 Intake Total 30 180 Output Total Balance 30 180 Intake, Oral 30 180 Physical Exam General Appearance: Alert, Oriented X3, Cooperative, No Acute Distress Other Physical Findings: Skin: No Rashes, No Breakdown, No Significant Lesion Skin Temp/Moisture Exam: Warm/Dry HEENT: Atraumatic, PERRLA, EOMI, Mucous Membr. moist/pink Neck: Supple, No JVD Cardiovascular: Regular Rate, Normal S1, Normal S2, No Murmurs Lungs: Clear to Auscultation, Normal Air Movement Abdomen: Normal Bowel Sounds, Soft, No Tenderness Neurological: Normal Gait, Normal Speech, grossly intact Extremities: No Clubbing, No Cyanosis, No Edema, Normal Pulses, No Tenderness/ Swelling Current Medications: Current Medications Sig/Nicolle Start time Last Medication Dose Route Stop Time Status Admin Acetaminophen 325 MG Q6P PRN 10/13 1845 DCD PO Calcium Carbonate 500 MG DAILY 10/14 1230 DCD 10/17 PO 1025 Ferrous Sulfate 325 MG BID 10/15 2200 DCD 10/17 PO 1026 Magnesium Hydroxide 30 ML AT BEDTIME 10/16 2200 DC PO 10/16 2201 Magnesium Hydroxide 30 ML AT BEDTIME 10/16 1730 DC 10/16 PO 10/16 1731 1729 Morphine Sulfate 2 MG Q4P PRN 10/13 1845 DCD 10/14 IV 1138 Pantoprazole Sodium 40 MG BID 10/14 1000 DCD 10/17 IV 1025 Patient Medication 1 ED .STK-MED ONE 10/17 1339 MS Teaching ED 10/17 1340 Polyethylene Glycol 17 GM DAILY NEEDED PRN 10/15 1100 DCD 10/16 PO 0909 Senna/Docusate Sodium 1 TAB BID PRN 10/15 1100 DCD 10/16 PO 0909 Tramadol HCl 50 MG Q6 PRN 10/13 1845 DCD 10/17 PO 0900 Last 24 Hrs of Lab/Arash Results Last 24 Hrs of Labs/Mics: Laboratory Tests 10/17/16 0620: CBC w Diff NO MAN DIFF REQ, RBC 3.40 L, MCV 88.3, MCH 29.7, RDW 15.4 H, MPV 7.9, Gran % 59.8, Lymphocytes % 24.2, Monocytes % 9.7 H, Eosinophils % 5.4 H, Basophils % 0.9, Absolute Granulocytes 4.3, Absolute Lymphocytes 1.7, Absolute Monocytes 0.7 H, Absolute Eosinophils 0.4, Absolute Basophils 0.1, PUBS MCHC 33.6 Assessment/Plan Assessment: Ms Garcia is a 46-year-old lady with past medical history of MVP, 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 She was found to be profoundly anemic as a result of chronic GI blood loss likley due to an upper GI Bleed. She seems to have had a physilogic compensation. Acute blood loss anemia, requiring transfusion -Patient received 3 units of blood, H&H posttransfusion 8.9/26.0. Today her H&H is 10.1/30.0. No signs of active bleeding. GI consultation was obtained, recommendations appreciated. -Possible source of GI bleeding is the gastric mass that was visualized in the upper GI endoscopy on 10/15/16. -Continue IV Protonix 40 mg twice a day for the time being -Tums for acid reflux Gastric mass, causing partial gastric outlet obstruction Patient underwent upper GI endoscopy on 10/15/16 and was found to have gastric mass causing partial gastric outlet obstruction. Surgical service was consulted for the same, Tawanda Tony MD consulted the patient and suggested to wait for the biopsy and if in case it turns out to be malignant or abnormal to surgery then a possibility of partial gastrectomy was also discussed with the patient. Patient will be following dietary aid services and oncologic surgery after discharge with the biopsy results. Acute onset Shortness of breath -Resolved, saturating 100-98% on room air -Most likely explanation is the acute blood loss anemia -Given recent surgery as well as EKG findings of S1 Q 3 T3 -CTA and bilateral venous Doppler ruled out PE and DVT Chest Pain -Serial troponin and EKG negative, ACS ruled out -Patient had epigastric pain on and off Leukocytosis -Initial Chext X-Ray Unremarkable -Likely due to stress to demargination -Continue to monitor off antibiotics -Re assess breast site for abcess formation if febrile (history of left breast lumpectomy (10/05/2016)) Diet -Patient was initially restarted on regular diet, upon which she complained of epigastric pain, and was placed on full liquid diet and is finally on mechanical soft ground diet with regular thin liquids DVT Prophylaxis: Alps Code Full code Consultation GI, Surgery Problem List: 1. Acute blood loss anemia 2. Gastric mass 3. Status post breast lumpectomy Pain Ratin Pain Location: - Pain Goal: Pain 4 or less Pain Plan: prn Tomorrow's Labs & Rationales: - BARBARA KENNEDY MD 10/17/16 1157: Attending MD Review Statement Attending Statement Attending MD Statement: examined this patient, discuss w/resident/PA/CUBE CUTTER, agreed w/resident/PA/CUBE CUTTER, reviewed EMR data (avail), discussed with nursing, discussed with case mgmt, amended to note Attending Assessment/Plan: Patient seen and examined. Resting comfortably and not in any acute distress. No issues overnight. CT abdomen and pelvis was obtained by recommendation of general surgery service. No acute intra-abdominal pathology was noted. The stomach mass was identified. Patient is currently medically stable to be discharged home today. She will follow-up with the gastroenterology and general surgery service as an outpatient for results of biopsy. Further treatment plan will be decided on at that time. This plan of care was discussed in detail with the patient. She verbalized understanding.
[2016-10-17 08:14] LABS: ABSOLUTE BASOPHIL COUNT 0.1 /CUMM (0.0-0.2); ABSOLUTE EOSINOPHIL COUNT 0.4 /CUMM (0.0-0.7); ABSOLUTE GRANULOCYTE CT 4.3 /CUMM (1.4-6.5); ABSOLUTE LYMPH COUNT 1.7 /CUMM (1.2-3.4); ABSOLUTE MONOCYTE COUNT 0.7 /CUMM (0.10-0.60); BASOPHIL % 0.9 % (0.0-2.0); EOSINOPHIL % 5.4 % (0-5); GRANULOCYTE % 59.8 % (42.2-75.2); MEAN CORPUSCULAR HGB 29.7 PG (27.0-31.0); MEAN CORPUSCULAR HGB CONC 33.6 G/DL (33.0-37.0); MEAN CORPUSCULAR VOLUME 88.3 FL (81.0-99.0); MEAN PLATELET VOLUME 7.9 FL (7.4-10.4); PLATELET COUNT 503 /CUMM (130-400); RBC DISTRIBUTION WIDTH 15.4 % (11.5-14.5); WHITE BLOOD CELL COUNT 7.2 /CUMM (4.8-10.8)
[2016-10-17] MEDS ORDERED: PROTONIX40 M3 PO (13:57)
--- NOTE | 2016-10-18 07:59 | Discharge Summary ---
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 She was found to be profoundly anemic as a result of chronic GI blood loss likley due to an upper GI bleed. She seems to have had a physilogic compensation. Acute blood loss anemia, requiring transfusion -Patient received 3 units of blood, H&H posttransfusion 8.9/26.0. On the day of discharge, her H&H was 10.1/30.0. H/H stable. Vitals stable. No signs of active bleeding. GI consultation was obtained, with recommendation for follow up, given the finding of a gastric mass on UGI Endoscopy. Possible source of GI bleeding is the gastric mass. PPI was continued. Gastric mass, causing partial gastric outlet obstruction Patient underwent upper GI endoscopy on 10/15/16 and was found to have gastric mass causing partial gastric outlet obstruction. Surgical service was consulted for the same, Danilo Tony MD consulted the patient and suggested to wait for the biopsy and if in case it turns out to be malignant or amenable to surgery, then a possibility of partial gastrectomy was also discussed with the patient. Patient will be following senior java j2ee developer services and oncologic surgery after discharge with the biopsy results. Acute onset Shortness of breath, resolved -Resolved, as the patient was saturating 100-98% on room air -Most likely explanation is the acute blood loss anemia -Given recent surgery as well as EKG findings of S1 Q 3 T3 -CTA and bilateral venous Doppler had ruled out PE and DVT Chest/epigastric Pain -Serial troponin and EKG negative, ACS ruled out -Patient had epigastric pain on and off, which was attributed later to GI sources Diet -Patient was initially restarted on regular diet, upon which she complained of epigastric pain, and was placed on full liquid diet. After her endoscopy, she was recommended mechanical soft ground diet with regular thin liquids -Patient initially had leukocytosis, but was watched off antibiotics. She did not have fever/chills, and did not detoriate during the course of stay in the hospital. -DVT Prophylaxis was provided with Alps, as she had active GI bleeding. -Code status was Full code Complications: None Allergies: Coded Allergies: azithromycin (From ZITHROMAX) (DIARRHEA 10/13/16) cephalexin (From KEFLEX) (DIARRHEA 10/13/16) tetracycline (DIARRHEA 10/13/16) Significant Procedures: Upper GI Endoscopy: 10/15/2016: Findings: Esophagus: The esophageal mucosa was grossly normal in appearance there was a normal-appearing Z line at 40 cm from the incisors. Stomach: Within the antrum was a large polypoid-type mass which was immediately proximal to, but not involving the pylorus which was patent and easily traversable by the upper endoscope. The mass was friable and irregular in appearance. The mass was biopsied with multiple passes of a cold biopsy forceps and was sent to pathology for further evaluation. The remainder of the gastric mucosa was grossly normal in appearance. Random biopsies were also obtained from the antrum and body of the stomach with cold biopsy forceps and were sent to pathology for further evaluation. Retroflexed views were normal and did not reveal a significant hiatal hernia. There was a moderate amount of liquid and some solid food in the body and fundus. Distention and peristalsis of the stomach appeared normal. Duodenum: The duodenal bulb was minimally erythematous, but there were no ulcers or erosions appreciated. The duodenal sweep and folds are grossly normal in appearance and there was bile appreciated throughout to the second portion of the duodenum. Impression: 1. Antral mass causing a partial gastric outlet obstruction potentially malignant status post biopsies. 2. Mild nonerosive duodenitis status post random gastric biopsies. Recommendations: 1. Her diet should be advanced as tolerated. 2. She should be placed on oral iron supplementation. 3. Follow hemoglobin and transfuse as needed to keep her hemoglobin greater than 8 or as per cardiology recommendations. 4. She should follow up the pathology results with me as an outpatient. 5. Would check an abdominal and pelvic ct scan with po and iv contrast which can be also be done as an outpatient. CC: ROCKY CHOWDHURY,SUDHAKAR Rodrigues DICTATED BY: CHARISSE WASSERMAN MD DATE/TIME DICTATED:10/15/16 1342 TUBE BENDER:ANIKA DATE/TIME TRANSCRIBED:10/15/16 1342 REPORT NUMBER:[id number] Pertinent Lab Results: 10/17/16 0620: CBC w Diff NO MAN DIFF REQ, RBC 3.40 L, MCV 88.3, MCH 29.7, RDW 15.4 H, MPV 7.9, Gran % 59.8, Lymphocytes % 24.2, Monocytes % 9.7 H, Eosinophils % 5.4 H, Basophils % 0.9, Absolute Granulocytes 4.3, Absolute Lymphocytes 1.7, Absolute Monocytes 0.7 H, Absolute Eosinophils 0.4, Absolute Basophils 0.1, [facility] MCHC 33.6 10/15/16 0610: Anion Gap 9, Estimated GFR > 60, BUN/Creatinine Ratio 13.3, Total Beta HCG NEGATIVE, CBC w Diff NO MAN DIFF REQ, RBC 2.95 L, MCV 88.2, MCH 30.2, RDW 16.9 H, MPV 8.3, Gran % 57.7, Lymphocytes % 26.4, Monocytes % 9.0, Eosinophils % 5.6 H, Basophils % 1.3, Absolute Granulocytes 4.6, Absolute Lymphocytes 2.1, Absolute Monocytes 0.7 H, Absolute Eosinophils 0.4, Absolute Basophils 0.1, [facility] MCHC 34.2 10/14/16 193: CBC w Diff NO MAN DIFF REQ, RBC 2.89 L, MCV 88.8, MCH 29.9, RDW 16.6 H, MPV 7.6, Gran % 67.4, Lymphocytes % 18.1 L, Monocytes % 9.7 H, Eosinophils % 3.5, Basophils % 1.3, Absolute Granulocytes 6.3, Absolute Lymphocytes 1.7, Absolute Monocytes 0.9 H, Absolute Eosinophils 0.3, Absolute Basophils 0.1, [facility] MCHC 33.7 10/13/161811: Lactic Acid 0.8 10/13/16 1745: Urinalysis HEAVY H, Urine Color YEL, Urine Clarity HAZY H, Urine pH 7.5, Ur Specific [place] 1.010, Urine Protein NEG, Urine Ketones NEG, Urine Nitrite NEG, Urine Bilirubin NEG, Urine Urobilinogen 0.2, Ur Leukocyte Esterase NEG, Ur Microscopic SEDIMENT EXAMINED, Urine RBC 1-3, Urine WBC 1-3 H, Ur Epithelial Cells MOD H, Urine Bacteria RARE H, Urine Hemoglobin NEG, Urine Glucose NEG 10/13/16 1629: TIBC Cancelled, D-Dimer Cancelled 10/13/16 1545: Anion Gap 8, Estimated GFR > 60, BUN/Creatinine Ratio 34.0 H, Glucose 101 H, Lactic Acid 0.9, Calcium 8.5, Iron 21 L, TIBC 338, Total Bilirubin 0.3, AST 20, ALT 35, Alkaline Phosphatase 39, Troponin I < 0.01, Total Protein 5.7 L, Albumin 3.2 L, Globulin 2.5, Albumin/Globulin Ratio 1.3, PT 11.8, INR 1.13, D- Dimer 277 H, CBC w Diff NO MAN DIFF REQ, RBC 1.89 L, MCV 93.3, MCH 31.3 H, RDW 13.6, MPV 7.5, Gran % 78.7 H, Lymphocytes % 12.9 L, Monocytes % 6.7, Eosinophils % 0.8, Basophils % 0.9, Absolute Granulocytes 9.1 H, Absolute Lymphocytes 1.5, Absolute Monocytes 0.8 H, Absolute Eosinophils 0.1, Absolute Basophils 0.1, PUBS MCHC 33.5 -------- CXR: 10/13/16: IMPRESSION: No evidence of pneumonia. 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 Patient's Activity: As tolerated. Follow-Up Instructions/Appts: Follow-up with her primary care physician within 7 days of discharge. Follow-up with gastroenterology service within 7 days of discharge for discussion about biopsy results, or earlier if necessary. Follow-up with surgical team within 7 days of discharge. Gastroenterology service has recommended mechanical soft/ground solid foods and regular thin liquid as dietary consistency recommendation. Please return to emergency if symptoms worsen. Medications at Discharge Discharge Medications: Start taking the following new medications: Pantoprazole Sodium (Protonix) 40 MG TABLET. 40 Milligram ORAL TWICE DAILY Qty = 60 No Refills Comments: Last Taken:10/17/16 Time:10:25 AM GIVEN IV IN HOSPITAL Ferrous Sulfate (Ferrous Sulfate) 325 MG (65 MG IRON) TABLET.DR 325 Milligram ORAL TWICE DAILY Qty = 60 No Refills Comments: Last Taken:10/17/16 Time:10:26 AM Tramadol HCl (Tramadol HCl) 50 MG TABLET 50 Milligram ORAL EVERY SIX HOURS as needed for PAIN SCALE 4-6 (MODERATE) Qty = 20 No Refills Comments: Last Taken: 10/17/16 Time: 09:00 AM Acetaminophen (Tylenol) 325 MG TABLET 325 Milligram ORAL EVERY SIX HOURS NEEDED as needed for PAIN SCALE 1-3 ( MILD) Qty = 20 No Refills Calcium Carbonate (Calcium Carbonate) 200 MG CALCIUM (500 MG) TAB.CHEW 500 Milligram ORAL DAILY Qty = 30 No Refills Comments: Last Taken:10/17/16 Time:10:25 AM Sennosides/Docusate Sodium (Senna Plus Tablet) 8.6 MG-50 MG TABLET 1 Tablet ORAL TWICE DAILY as needed for CONSTIPATION Qty = 30 No Refills Comments: Last Taken: 10/16/16 Time:09:09 AM Copies To: ROCKY CHOWDHURY,SUDHAKAR Rodrigues; ARISTEO CHOWDHURY,DANILO Mad[place]; LUX CHOWDHURY,CHARISSE Polanco MD Review Statement Documenting Attending: BARBARA KENNEDY M.D Other Findings: I have reviewed the discharge summary.
== END 2016-10-17 14:45 | DRG 812 ==
LOC: ERH 14:57 → ERHI 17:35 → 2NA 17:35 → ENRESERV 18:21 → CRI 19:58 → 2NA 10-14 13:58 → ENPENDDIS 10-17 13:38 → 2NA 10-17 14:45
PROVIDERS: Emergency Medicine; Internal Medicine; Ophthalmology; Preventive Medicine Public Health & General Preventive Medicine; Student in an Organized Health Care Education/Training Program; ADMIT Hospitalist
PROC: 0DB68ZX Excision of Stomach, Via Natural or Artificial Opening Endoscopic, Diagnostic (ICD-10-PCS; principal; 2016-10-15)
DX: D62 Acute posthemorrhagic anemia (principal); K92.2 Gastrointestinal hemorrhage, unspecified; K31.89 Other diseases of stomach and duodenum; Z85.3 Personal history of malignant neoplasm of breast; Z87.891 Personal history of nicotine dependence
CPT/HCPCS: 2NASP; CCU; 36415; 81001; 82436; 86920; 87040; 87086; 88305; 88312; 93005; 93010; 93970; 99291; J7042; P9016

== ENCOUNTER 2016-11-02 16:55 | Observation (INO) | payer OTHER ==
[~2016-11-02] VITALS: Ht 165.1 cm; Wt 59.0 kg
--- NOTE | 2016-11-02 17:03 | NUR ---
46 YO FEMALE TO TRIAGE FOR WEKANESS AND FATIGUE. STAUNA SHE WAS DIAGNOSED WITH BREAST CA ON 10/10 AND WAS SCHEDUALED FOR AN MRI TODAY PRIOR TO STARTING TREATMENTS BUT THE MACHINE WAS DOWN TODAY SO SHE WAS UNABLE TO HAVE IT. STATES SHE WAS ADMITTED ON 10/13 FOR ANEMIA AND NEEDED A BLOOD TRANSFUSION. PT APPEARS PALE. C/O L SIDED RIB PAIN. ALSO C/O NUMBESS TO FINGER TIPS AND TOES ON/OFF.
--- NOTE | 2016-11-02 17:18 | NUR ---
LABS DRAWN AND SENT BY THIS MST, BLUE,SST,LAV,YAÑEZ
[2016-11-02 17:27] LABS: ABSOLUTE BASOPHIL COUNT 0.2 /CUMM (0.0-0.2); ABSOLUTE EOSINOPHIL COUNT 0.2 /CUMM (0.0-0.7); ABSOLUTE GRANULOCYTE CT 7.9 /CUMM (1.4-6.5); ABSOLUTE LYMPH COUNT 2.1 /CUMM (1.2-3.4); ABSOLUTE MONOCYTE COUNT 0.7 /CUMM (0.10-0.60); BASOPHIL % 1.4 % (0.0-2.0); EOSINOPHIL % 1.7 % (0-5); GRANULOCYTE % 71.3 % (42.2-75.2); HEMATOCRIT 20.4 % (37-47); MEAN CORPUSCULAR HGB 28.3 PG (27.0-31.0); MEAN CORPUSCULAR HGB CONC 31.8 G/DL (33.0-37.0); MEAN PLATELET VOLUME 7.1 FL (7.4-10.4); PLATELET COUNT 574 /CUMM (130-400); RBC DISTRIBUTION WIDTH 17.8 % (11.5-14.5); RED BLOOD CELL CT 2.29 /CUMM (4.20-5.40); WHITE BLOOD CELL COUNT 11.1 /CUMM (4.8-10.8)
--- NOTE | 2016-11-02 17:34 | NUR ---
CRITICAL TEST RESULTS [id number] DELMA LEVY 46 F TESTS AND RESULTS: HGB 6.5, HCT 20.4 Results received and read back by: BOGDAN CALLOWAY Results received date and time: 11/02/16 9504 The following provider was notified of the results, and read the results back: Notified date and time: 11/02/16 at 1731
--- NOTE | 2016-11-02 17:37 | NUR ---
CEO & FOUNDER AWARE OF LAB RESULTS.
--- NOTE | 2016-11-02 17:48 | ED GENERAL ADULT ---
History of Present Illness General Chief Complaint: General Adult Stated Complaint: PT ANEMIA, LOW BLOOD COUNT Source: patient Exam Limitations: no limitations Vital Signs & Intake/Output Vital Signs & Intake/Output Vital Signs Date Time Temp Pulse Resp B/P B/P Pulse O2 O2 Flow FiO2 Mean Ox Delivery Rate 11/03 0055 98.9 66 18 116/71 99 / 2350 99.2 77 18 115/63 99 Room Air / 2148 99.0 77 18 110/59 100 Room Air Room Air 11/02 1911 99.2 84 18 119/63 100 Room Air 06/ 1700 98.4 98 18 130/75 100 Room Air ED Intake and Output 11/03 0000 11/02 1200 Intake Total 600 Output Total Balance 600 Intake, Blood 350 Product Intake, IV 250 Patient 130 lb Weight Weight Reported by Patient Measurement Method Allergies Coded Allergies: azithromycin (From ZITHROMAX) (DIARRHEA 10/13/16) cephalexin (From KEFLEX) (DIARRHEA 10/13/16) tetracycline (DIARRHEA 10/13/16) Reconcile Medications Acetaminophen (Tylenol) 325 MG TABLET 325 MG PO Q6P PRN PAIN SCALE 1-3 (MILD) Calcium Carbonate 200 MG CALCIUM (500 MG) TAB.CHEW 500 MG PO DAILY SUPPLEMENT Ferrous Sulfate 325 MG (65 MG IRON) TABLET. 325 MG PO BID IRON SUPPLEMENT Pantoprazole Sodium (Protonix) 40 MG TABLET.DR 40 MG PO BID ACIDITY Sennosides/Docusate Sodium (Senna Plus Tablet) 8.6 MG-50 MG TABLET 1 TAB PO BID PRN CONSTIPATION Tramadol HCl 50 MG TABLET 50 MG PO Q6 PRN PAIN SCALE 4-6 (MODERATE) Triage Note: 46 YO FEMALE TO TRIAGE FOR WEKANESS AND FATIGUE. STAUNA SHE WAS DIAGNOSED WITH BREAST CA ON 10/10 AND WAS SCHEDUALED FOR AN MRI TODAY PRIOR TO STARTING TREATMENTS BUT THE MACHINE WAS DOWN TODAY SO SHE WAS UNABLE TO HAVE IT. STATES SHE WAS ADMITTED ON 10/13 FOR ANEMIA AND NEEDED A BLOOD TRANSFUSION. PT APPEARS PALE. C/O L SIDED RIB PAIN. ALSO C/O NUMBESS TO FINGER TIPS AND TOES ON/OFF. Onset: Gradual Duration: day(s): (6) Timing: recent history Injury Environment: home Severity: moderate, severe Modifying Factors: Worsens With: other (EXERTION). : No Patient currently breastfeeds: No HPI: This is a 46-year-old very kelly female with history of breast cancer recently diagnosed in August presents to the ER for chief complaint of shortness of breath and fatigue since Saturday. She states that she is unable to climb the 7 stairs at home without getting very winded and feeling like she is going to pass out. Complains of chest pressure but denies chest pain. She was due to get an outpatient MRI with stereotactic biopsy today but the MRI machine was down. Her plan was after the MRI to come to the ER for evaluation because of her symptoms. She is also due for an endoscopic ultrasound at [facility] on Saturday to evaluate a mass found at her gastric outlet. She denies any vomiting. She is only been on a soft food diet. She states that her stools are hard and dark. She is on oral iron. Patient was transfused in the hospital 3 units on the and discharged home. She at that time had an evaluation by GI. She is following with Dr. Tammy Grey at the [facility]. (MICHAEL CHOWDHURY,ANNEL) Triage Nurses Notes Reviewed? yes (LUCIANA CHOWDHURY,BENI Nava) Past History Travel History Traveled to [place] past 21 day No Medical History Any Pertinent Medical History? 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 No (MICHAEL CHOWDHURY,ANNEL) Review of Systems Review of Systems Constitutional: Denies: chills, fever. EENTM: Reports: no symptoms. Respiratory: Reports: short of breath. Denies: cough, sputum production. Cardiovascular: Reports: chest pain (PRESSURE). GI: Reports: no symptoms. Genitourinary: Reports: no symptoms. Musculoskeletal: Reports: no symptoms. Skin: Reports: no symptoms. Neurological/Psychological: Reports: no symptoms. Hematologic/Endocrine: Reports: bruising. Denies: bleeding, polyuria, polydipsia. Immunologic/Allergic: Denies: splenectomy. All Other Systems: Reviewed and Negative (ANNEL RODRIGUEZ MD) Physical Exam Physical Exam General Appearance: alert, awake, anxious Eyes: Bilateral: pale conjunctivae. Peripheral Pulses: 2+ radial (R), 2+ radial (L) (ANNEL RODRIGUEZ MD) Physical Exam Head: atraumatic Eyes: Bilateral: normal appearance. Ears, Nose, Throat: normal pharynx Neck: normal inspection Respiratory: normal breath sounds Cardiovascular: regular rate/rhythm Gastrointestinal: normal bowel sounds, soft, non-tender Extremities: normal inspection Neurologic/Psych: no motor/sensory deficits, awake, alert, oriented x 3 Skin: intact, normal color, warm/dry Core Measures ACS in differential dx? No CVA/TIA Diagnosis: No Severe Sepsis Present: No Septic Shock Present: No (BENI CHOWDHURY MD) Progress Differential Diagnoses I considered the following diagnoses in my evaluation of the patient: [ SYMPTOMATIC ANEMIA, MALIGNANCY, GASTRIC MASS, GI BLEEDING] Initial ED EKG: NSR Hand-Off Endorsed To: BENI CHOWDHURY MD Endorsed Time: 1999 Pending: other (REEVALUATION, ) (ANNEL RODRIGUEZ MD) Differential Diagnoses I considered the following diagnoses in my evaluation of the patient: Plan of Care: Orders Procedure Date/time Status Discharge Patient 11/03 118 Active Departure Departure Time of Disposition: 1913 Disposition: STILL A PATIENT Condition: Stable Clinical Impression Primary Impression: Symptomatic anemia Referrals: SUDHAKAR HIDALGO MD (PCP/Family) Departure Forms: Customer Survey General Discharge Information (ANNEL RODRIGUEZ MD) Critical Care Note Critical Care Note Critical Care Time: non-applicable (BENI CHOWDHURY MD) ED Attending Observation Initial Observation Note: I have seen and personally examined DELMA LEVY on 11/02/16 at 1915. I agree with the current emergency department documentation. The disposition (admission or discharge) is uncertain at this time, she needs a period of observation for the following reason(s): [TRANSFUSE 2 UNITS OF PACKED RBC'S, IV PROTONIX, MONITOR FOR SIGNS/SYMPTOMS OF ANEMIA. IF PATIENT REMAINS SOB WITH AMBULATION, MAY NEED FULL ADMISSION, POSSIBLE REPEAT CBC] The ED Nurse caring for this patient has been personally informed as to what the patient is being observed for. Observation Re-Evaluation: The physical findings that support the continued need to observe this patient include . (MICHAEL CHOWDHURY,ANNEL) Initial Observation Note: I have seen and personally examined DELMA LEVY on 11/03/16 at 0121. I agree with the current emergency department documentation. The disposition (admission or discharge) is uncertain at this time, she needs a period of observation for the following reason(s): The ED Nurse caring for this patient has been personally informed as to what the patient is being observed for. Observation Discharge: I have reevaluated DELMA LEVY on 11/03/16 at 0120. The patient is: ([X]): Stable for discharge (): To be admitted to Nursing Floor (): To be placed in Observation on Nursing Floor (): For transfer to other facility The patient was being observed for SYMPTOMATIC ANEMIA... SHE TOLERATED BLOOD TRANSFUSION WELL... PT HAS FOLLOW UP IN 2 DAYS WITH HER PMD AND ALSO HAS ENDOSCOPY SCHEDULED IN 5 DAYS. PT ENCOURAGED TO FOLLOW UP IF SHE DEVELOPS FATIGUE, BLEEDING, OR OTHER CONCERNING SYMPTOMS. As a result of that observation, I have determined . (BENI CHOWDHURY MD) I have seen and personally examined DELMA LEVY on 11/03/16 at 0121. I agree with the current emergency department documentation. The disposition (admission or discharge) is uncertain at this time, she needs a period of observation for the following reason(s): The ED Nurse caring for this patient has been personally informed as to what the patient is being observed for. Observation Discharge: I have reevaluated DELMA LEVY on 11/03/16 at 0120. The patient is: ([X]): Stable for discharge (): To be admitted to Nursing Floor (): To be placed in Observation on Nursing Floor (): For transfer to other facility The patient was being observed for SYMPTOMATIC ANEMIA... SHE TOLERATED BLOOD TRANSFUSION WELL... PT HAS FOLLOW UP IN 2 DAYS WITH HER PMD AND ALSO HAS ENDOSCOPY SCHEDULED IN 5 DAYS. PT ENCOURAGED TO FOLLOW UP IF SHE DEVELOPS FATIGUE, BLEEDING, OR OTHER CONCERNING SYMPTOMS. As a result of that observation, I have determined . (BENI CHOWDHURY MD)
[2016-11-02 18:58] LABS: PT 11.7 SEC (9.4-12.5); PTT 26 SEC (25-37)
--- NOTE | 2016-11-02 19:32 | NUR ---
FIRST UNIT PRBC HUNG AT THIS TIME.
--- NOTE | 2016-11-02 22:45 | NUR ---
SECOND UNIT HUNG AT THIS TIME. PT AMBULATORY TO BATHROOM AND CONTINUES TO REPORT SYMPTOMS WITH MOVEMENT.
[2016-11-03 00:55] VITALS: BP 116/71
--- NOTE | 2016-11-03 01:15 | NUR ---
2ND UNIT COMPLETED, NO DISTRESS FEELS WELL UP TO BR TO VOID MANDY WELL.
== END 2016-11-03 01:30 ==
LOC: ERH 16:55 → ERHI 18:56
PROVIDERS: Emergency Medicine; ADMIT Emergency Medicine
DX: D64.9 Anemia, unspecified (principal); K31.1 Adult hypertrophic pyloric stenosis; R53.1 Weakness; R53.83 Other fatigue; D05.92 Unspecified type of carcinoma in situ of left breast
CPT/HCPCS: 86920; 93005; 93010; 96374; G0378; P9016

== ENCOUNTER 2016-12-14 01:56 | Inpatient (IN) | payer OTHER ==
[~2016-12-14] VITALS: Ht 165.1 cm; Wt 61.2 kg
[~2016-12-14 01:56] MED LIST changes: +XANAX0.5 M1 PO
--- NOTE | 2016-12-14 10:13 | MAMMOGRAPHY REPORT ---
EXAMINATION: MM GUIDED NEEDLE LOCALIZATION BREAST, LEFT CLINICAL INFORMATION: Needle localization of a papillary lesion in the left breast 6:00. COMPARISON: MRI guided needle localization and post procedure mammogram dated 11/08/2016. TECHNIQUE NEEDLE LOC: Proper informed consent is obtained from the patient after discussion of the procedure, potential risks and complications, and alternatives including declining the procedure today. Patient was given an opportunity for questions. The patient appeared to understand. The patient consented to the procedure and signed the consent form. GUIDANCE: Digital mammography. APPROACH: Medial TARGET: Biopsy clip in the 6 to 7:00 position. ANESTHESIA: 10 mL Xylocaine 2% LOCALIZATION MARKER: dotSyntaxpans 5 cm needle localization wire The skin was prepped and local anesthesia administered. The needle was positioned and position assessed with mammography. The wire was hooked into position. The patient tolerated the procedure well and had no immediate complication. Diagram was marked for the surgeon. The target is around the thick segment of the wire, 3 cm deep to the skin with 10.5 cm of the wire remaining external to the skin. IMPRESSION: Status post left breast needle localization with wire hooked into position. The target is around the thick segment of the wire, 3 cm deep to the skin with 10.5 cm of the wire remaining external to the skin.
[2016-12-14] MEDS ORDERED: COLACE100 M1 PO (10:23)
[2016-12-14 10:52] LABS: ABSOLUTE BASOPHIL COUNT 0.1 /CUMM (0.0-0.2); ABSOLUTE EOSINOPHIL COUNT 0.1 /CUMM (0.0-0.7); ABSOLUTE LYMPH COUNT 1.5 /CUMM (1.2-3.4); ABSOLUTE MONOCYTE COUNT 0.5 /CUMM (0.10-0.60); BASOPHIL % 1.3 % (0.0-2.0); EOSINOPHIL % 1.6 % (0-5); GRANULOCYTE % 65.1 % (42.2-75.2); HEMATOCRIT 32.5 % (37-47); MEAN CORPUSCULAR HGB CONC 31.9 G/DL (33.0-37.0); MEAN CORPUSCULAR VOLUME 87.9 FL (81.0-99.0); MEAN PLATELET VOLUME 7.4 FL (7.4-10.4); PLATELET COUNT 566 /CUMM (130-400); RBC DISTRIBUTION WIDTH 15.2 % (11.5-14.5); WHITE BLOOD CELL COUNT 6.2 /CUMM (4.8-10.8)
--- NOTE | 2016-12-14 12:53 | Operative Report ---
Operative/Inv Procedure Report Surgery Date: 12/14/16 Name of Procedure: Reexcision left lumpectomy and left excisional biopsy with wire localization Pre-Operative Diagnosis: Left DCIS with positive caudal margin, left sclerosing papillary lesion Post-Operative Diagnosis: Same Estimated Blood Loss: less than 50ml Surgeon/Registered Respiratory Technician: DESTINEE WILLINGHAM MD Anesthesia: local monitored anesthesi Specimens: Caudal margin, left breast biopsy Operative/Procedure Note Note: Patient is status post left lumpectomy showing persistently positive caudal margin. She is brought for reexcision of left lumpectomy. Preoperative MRI revealed a lesion which was biopsied and showed a complex sclerosing papillary lesion and excision was recommended for this separate lesion. Preoperative for localization was performed films reviewed. 2 g of Ancef was given and anesthesia was administered. The left breast was prepped and draped in a sterile fashion using ChloraPrep. The biopsy site was approached first. Local anesthesia of 1% lidocaine mixed half percent Marcaine was given and a curvilinear incision was made in the periareolar position. The wire was Brought into the incision and the air concern was grasped using an Allis clamp. Area of concern was dissected using electrocautery and marked for orientation using margin map. Intraoperative x-ray confirmed the presence of the clip in the specimen. The deep tissue was approximated using interrupted Vicryl sutures and skin was closed using a running Biosyn subcuticular stitch. The lumpectomy was then approached. Local anesthesia was again given. Previous lumpectomy cavity was entered and the biosorb marker was removed. The caudal margin was excised and marked for orientation. Hemostasis adequate. The biosorb Marker was then replaced in the lumpectomy cavity and fastened to adjacent tissue using Maxon sutures. The tissue was then approximated using interrupted Vicryl sutures. Skin was closed using a running Biosyn subcuticular stitch. Steri-Strips and sterile dressings were applied and the patient was then turned over to Tawanda Tony MD for gastrectomy.
[2016-12-14] MEDS ORDERED: PERCOCET 5-3251 EACH PO (16:56)
--- NOTE | 2016-12-14 18:25 | MAMMOGRAPHY REPORT ---
EXAMINATION: MM NEEDLE LOCALIZATION SPECIMEN FROM THE BREAST, LEFT BREAST CLINICAL INDICATION: Excision of papillary lesion in the left breast 6:00. COMPARISON: Needle localization films from earlier today. TECHNIQUE: Single specimen radiograph was obtained. FINDINGS: The radiograph of the excised surgical specimen shows that the hookwire is delivered intact and the marker clip is identified in the specimen. IMPRESSION: Satisfactory excision of the targeted lesion. These findings were communicated to the surgeon in the OR at the time of specimen radiography.
[2016-12-14 18:30] VITALS: BP 130/76
--- NOTE | 2016-12-14 19:41 | NUR ---
183 PATIENT ARRIVED TO FLOOR ALERT AND ORIENTED X 3. ON ROOM AIR. DENIES SHORTNESS OF BREATH VITAL SIGNS STABLE. DENIES CHEST PAIN. + PULSES. DENIES NUMBNESS/TINGLING DSGS ARE C/D/I. NG TUBE TO LOW SUCTION. GILMORE CARE GIVEN. WILL CONTINUE TO MONITOR
[2016-12-14 20:30] VITALS: BP 130/80
--- NOTE | 2016-12-14 22:09 | Admission Core Measures ---
Admission Lab Results I reviewed the following labs: Laboratory Tests 12/14 12/14 1030 UNK Hematology CBC w Diff NO MAN DIFF REQ WBC (4.8 - 10.8 /CUMM) 6.2 RBC (4.20 - 5.40 /CUMM) 3.70 L Hgb (12.0 - 16.0 G/DL) 10.4 L Hct (37 - 47 %) 32.5 L MCV (81.0 - 99.0 FL) 87.9 MCH (27.0 - 31.0 PG) 28.0 RDW (11.5 - 14.5 %) 15.2 H Plt Count (130 - 400 /CUMM) 566 H MPV (7.4 - 10.4 FL) 7.4 Gran % (42.2 - 75.2 %) 65.1 Lymphocytes % (20.5 - 51.1 %) 24.3 Monocytes % (1.7 - 9.3 %) 7.7 Eosinophils % (0 - 5 %) 1.6 Basophils % (0.0 - 2.0 %) 1.3 Absolute Granulocytes (1.4 - 6.5 /CUMM) 4.0 Absolute Lymphocytes (1.2 - 3.4 /CUMM) 1.5 Absolute Monocytes (0.10 - 0.60 /CUMM) 0.5 Absolute Eosinophils (0.0 - 0.7 /CUMM) 0.1 Absolute Basophils (0.0 - 0.2 /CUMM) 0.1 PUBS MCHC (33.0 - 37.0 G/DL) 31.9 L Urines Urine Test NEGATIVE Admission Meds I reviewed the following Meds: Current Medications Sig/Nicolle Start time Last Medication Dose Stop Time Status Admin Acetaminophen 1,000 MG Q6P PRN 12/14 1930 AC (Ofirmev) Ceftriaxone Sodium 1,000 MG DAILY 12/15 1000 AC (Rocephin) 12/16 0959 Dextrose/Sodium 1,000 ML Q8H 12/14 1715 AC Chloride (D5W-1/2 Normal Saline 1000ML) Heparin Sodium 5,000 UNIT Q8 12/15 1400 CAN (Porcine) Heparin Sodium 5,000 UNIT Q8 12/15 0600 AC (Porcine) Hydromorphone HCl 1 MG Q4-PRN PRN 12/14 1700 AC (Dilaudid) Metronidazole 500 MG IQ8 12/15 0000 AC (Flagyl) 12/16 0000 N/A 1 UNIT (No Carrier) Morphine Sulfate 2 MG Q2P PRN 12/14 1929 AC (Morphine) Morphine Sulfate 4 MG Q2P PRN 12/14 193 AC (Morphine) Ondansetron HCl 4 MG Q6P PRN 12/14 193 AC (Zofran) Ondansetron HCl 4 MG Q6-PRN PRN 12/14 171 AC (Zofran) Pantoprazole Sodium 40 MG DAILY 12/15 1000 AC (Protonix) Promethazine HCl 12.5 MG Q6P PRN 12/14 193 AC (Phenergen) 12/21 1729 Acute Coronary Syndrome Inclusion Criteria ACS Diagnosis No Inpatient Core Measures LDL Reminder: If No, please order W/I first 24hr of stay Congestive Heart Failure Inclusion Criteria CHF Diagnosis No Cerebrovascular accident Inclusion Criteria CVA/TIA Diagnosis No Inpatient Core Measures Bedside Swallow Eval Reminder: If BSE failed, place ST order Antithrombotic Reminder: Order Antithrombotic Medication by end of day 2 Antithrombotic Reminder: Document Reason Antithrombotic Not ordered by end of day 2 AFIB/Flutter Reminder: If Present, add to problem list AFIB/Flutter Reminder: Order Anticoag Medication for pts with AFIB/Flutter Atherosclerosis Reminder: If Present, add to problem list LDL Reminder: If No, please order W/I first 24hr of stay PT Order Reminder: If No, please order Venous thromboembolism Inpatient Core Measures VTE Risk Factors: [facility] prophylaxis d/t No contraindications No VTE Pharm Prophylaxis d/t No contraindications Inclusion Criteria - Per Current guidelines, there needs to be overlap - treatment for the first 5 days of Warfarin therapy. - Parenteral Anticoagulation (IV or SC) needs to be - given along with Warfarin therapy. VTE Diagnosis No VTE Type NONE VTE Confirmed by (Test) NONE Problem List As ranked by this Provider includes Assessment & Plan 1. Gastric mass 2. Status post breast lumpectomy HOME MEDS Home Med List Alprazolam (Xanax) 0.5 MG TABLET 1 TAB PO NIGHTLY SLEEP (Reported) Calcium Carbonate 200 MG CALCIUM (500 MG) TAB.CHEW 500 MG PO DAILY SUPPLEMENT Docusate Sodium (Colace) 100 MG CAPSULE 1 100MG PO DAILY CONSTIPATION ( Reported) Ferrous Sulfate 325 MG (65 MG IRON) TABLET.DR 325 MG PO BID IRON SUPPLEMENT Oxycodone HCl/Acetaminophen (Percocet 5-325 MG Tablet) 5 MG-325 MG TABLET 1 TAB PO TID PRN PAIN (Reported) Pantoprazole Sodium (Protonix) 40 MG TABLET.DR 40 MG PO BID ACIDITY
--- NOTE | 2016-12-14 22:14 | PN- General Surgery ---
Subjective Subjective: POC feeling ok, pain controlled. main complaint is NGT discomfort. no OOB. no flatus/bm. no cp/sob. no n/v Objective Vital Signs and I&Os Vital Signs Date Time Temp Pulse Resp B/P B/P Pulse O2 O2 Flow FiO2 Mean Ox Delivery Rate 12/14 2029 98.6 54 18 130/80 95 Room Air 12/14 1830 98.9 59 18 130/76 94 Room Air UO: approx 300 in [place] bag Physical Exam: GEN: NAD CARD: s1s2 RRR PULM: CTAB BREAST: L breast incision w CDI dressing, ttp at incision ABD: soft, dressing CDI, ttp at incision, +bs EXT: calves soft nt bl Assessment/Plan Assessment/Plan A: POD0 sp L lumpectomy, distal gastrectomy, stable P: npo, ngt, ivf am labs dvt ppx oob, ambulate abx x23hr postop ppx ?dc [place] in am Core Measures/Miscellaneous Venous Thromboembolism VTE Risk Factors: Surgery VTE Contraindications: No Contraindications VTE Diagnosis: No VTE Type: NONE VTE Confirmed by (Test): NONE Beta Fransico Is Beta Fransico a Home Med? No Antibiotics Is Patient on Antibiotics? Yes If Yes: prophylaxis
[2016-12-14 23:10] VITALS: BP 138/78
[2016-12-15 01:14] VITALS: BP 140/72
[2016-12-15 03:28] VITALS: BP 144/72
[2016-12-15 08:00] VITALS: BP 110/80
[2016-12-15 08:49] LABS: ABSOLUTE BASOPHIL COUNT 0 /CUMM (0.0-0.2); ABSOLUTE EOSINOPHIL COUNT 0 /CUMM (0.0-0.7)
[2016-12-15 09:34] LABS: ABSOLUTE LYMPH COUNT 1.2 /CUMM (1.2-3.4); BASOPHIL % 0.2 % (0.0-2.0); EOSINOPHIL % 0.3 % (0-5); HEMATOCRIT 28.9 % (37-47); MEAN CORPUSCULAR HGB 28.2 PG (27.0-31.0); MEAN CORPUSCULAR HGB CONC 31.8 G/DL (33.0-37.0); MEAN CORPUSCULAR VOLUME 88.8 FL (81.0-99.0); MEAN PLATELET VOLUME 8.1 FL (7.4-10.4); PLATELET COUNT 415 /CUMM (130-400); RBC DISTRIBUTION WIDTH 15.6 % (11.5-14.5); RED BLOOD CELL CT 3.26 /CUMM (4.20-5.40)
[2016-12-15 09:52] LABS: WHITE BLOOD CELL COUNT 11.2 /CUMM (4.8-10.8)
--- NOTE | 2016-12-15 13:01 | PN- General Surgery ---
Surgical Brief Attending Note Brief Attending Note: already ambulating NG tube in place vital signs stable afebrile abdomen soft nondistended continue present care decrease IV fluids awaiting return of bowel function which will take several days
[2016-12-15 14:36] VITALS: BP 120/70
--- NOTE | 2016-12-15 18:19 | NUR ---
ALERT AND ORIENTED X 3. ON ROOM AIR. DENIES SHORTNESS OF BREATH VITAL SIGNS STABLE. DENIES CHEST PAIN. + PULSES. DENIES NUMBNESS/TINGLING DSGS ARE C/D/I. STEADY GAIT. MEDICATION GIVEN FOR DISCOMFORT. WILL CONTINUE TO MONITOR
[2016-12-15 22:05] VITALS: BP 130/70
[2016-12-16 06:39] VITALS: BP 140/84
--- NOTE | 2016-12-16 07:37 | PN- General Surgery ---
See Addendum Subjective Subjective: Pt has no major complaints this morning. She admits to some abdominal discomfort , but reports better relief since pain meds were switched to Dilaudid yesterday. Denies breast pain at the lumpectomy site. NGT remains in place. No nausea. No flatus as of yet. She admits to some belching when NGT is clamped during ambulation. [I increased the suction on the NGT for a brief moment and a large amount of thick bilious fluid was aspirated, about 100-150mL.] She reported relief of epigastric pressure after brief increased suction. Using ISB, voiding and ambulating well. Denies WELLS, dizziness, CP, SOB. Objective Vital Signs and I&Os Vital Signs Date Time Temp Pulse Resp B/P B/P Pulse O2 O2 Flow FiO2 Mean Ox Delivery Rate 12/16 0639 99.1 72 20 140/84 95 12/15 2205 98.6 70 18 130/70 96 Room Air 12/15 1436 98.2 76 16 120/70 99 Room Air Intake & Output 12/16 1600 12/16 0800 12/16 0000 12/15 1600 12/15 0800 12/15 0000 Intake Total 784 114 1944 Output Total 0 679 591 6621 300 Balance 600 -710 360 -250 -300 Intake, IV 030 977 5136 Intake, Oral 0 0 Number 0 Bowel Movements Output, 0 10 90 Gastric Drainage Output, Urine 012 411 9312 300 Patient 135 lb Weight Physical Exam: Gen.: Patient is awake and alert, sitting in the bed. No acute distress. Cardiac: Regular Pulmonary: Lungs are clear to auscultation bilaterally. Chest: The left breast dressings are clean, dry, and intact. There is mild edema, but no evidence of seroma or ecchymosis to indicate hematoma. Abdomen: Soft and relatively nondistended. There is mild janet-incisional tenderness, as expected. NG tube is in place with thick bilious output, not bloody this morning. Negative pressure was increased to about 70 mmHg for improved aspiration of secretions. No bowel sounds were heard as of yet. Abdominal dressing is clean, dry, and intact. Extremities: No significant lower extremity edema or calf tenderness are appreciated. Assessment/Plan Assessment/Plan Patient is a 46-year-old female with history of left breast DCIS, GERD, and anxiety, who is now postoperative day #2 status post left reexcision lumpectomy and distal gastrectomy. NG tube remains in place and we're still awaiting bowel function, which we anticipate will take several days. Plan: -Continue nothing by mouth with NG tube and IV fluids. Add potassium to IV fluids. Recheck electrolytes tomorrow. -Pain control with IV Dilaudid. At some point we should consider decreasing the dose of this slightly. -Protonix IV for GI prophylaxis. -Subcutaneous heparin and Alps for DVT prophylaxis. -24-hour antibiotic prophylaxis complete. -Continue incentive spirometer, ambulation. -Will discuss with Tawanda Tony MD. Core Measures/Miscellaneous Venous Thromboembolism VTE Risk Factors: Surgery VTE Contraindications: No Contraindications VTE Diagnosis: No VTE Type: NONE VTE Confirmed by (Test): NONE Beta Fransico Is Beta Fransico a Home Med? No Antibiotics Is Patient on Antibiotics? No
[2016-12-16 08:19] LABS: ABSOLUTE BASOPHIL COUNT 0.1 /CUMM (0.0-0.2); ABSOLUTE EOSINOPHIL COUNT 0.4 /CUMM (0.0-0.7); ABSOLUTE LYMPH COUNT 0.9 /CUMM (1.2-3.4); ABSOLUTE MONOCYTE COUNT 0.6 /CUMM (0.10-0.60); BASOPHIL % 0.9 % (0.0-2.0); GRANULOCYTE % 78.2 % (42.2-75.2); HEMATOCRIT 28.1 % (37-47); MEAN CORPUSCULAR HGB CONC 31.6 G/DL (33.0-37.0); MEAN CORPUSCULAR VOLUME 88.7 FL (81.0-99.0); MEAN PLATELET VOLUME 7.9 FL (7.4-10.4); PLATELET COUNT 411 /CUMM (130-400); RBC DISTRIBUTION WIDTH 14.9 % (11.5-14.5); RED BLOOD CELL CT 3.17 /CUMM (4.20-5.40); WHITE BLOOD CELL COUNT 8.9 /CUMM (4.8-10.8)
[2016-12-16 15:26] VITALS: BP 138/80
[2016-12-16 22:23] VITALS: BP 130/80
[2016-12-17 06:45] VITALS: BP 140/88
--- NOTE | 2016-12-17 07:56 | PN- General Surgery ---
See Addendum Subjective Subjective: Patient feeling frustrated with NGT, but states that when it was clamped briefly overnight, she felt a fullness in her stomach and throat that was relieved when it was placed back to suction. She did not belch or develop hiccups during that time, the tube was clamped approximately one hour. She denies nausea, she has been voiding, she has not passed flatus. She has been ambulating. She denies chest pain, shortness of breath and difficulty breathing. She notes a non- painful bilateral swelling in the area of her preauricular lymph nodes. She states that since she had her wisdom teeth extracted several years ago she has had intermittant swelling in that area, she feels that it seems more pronounced today. Objective Vital Signs and I&Os Vital Signs Date Time Temp Pulse Resp B/P B/P Pulse O2 O2 Flow FiO2 Mean Ox Delivery Rate 12/17 0645 98.0 68 18 140/88 97 Room Air 12/16 2223 98.8 82 18 130/80 96 Room Air 12/16 1526 98.8 76 20 138/80 94 Room Air Intake & Output 12/17 0800 12/17 0000 12/16 1600 12/16 0800 12/16 0000 12/15 1600 Intake Total 75 600 600 900 Output Total 400 1000 0 710 540 Balance -325 -400 600 -710 360 Intake, IV 75 600 600 900 Intake, Oral 0 0 Number 0 0 Bowel Movements Output, 50 250 0 10 90 Gastric Drainage Output, Urine 350 750 700 450 Physical Exam: General: Alert and oriented x3, no acute distress HEENT: Swelling noted in preauricular region bilaterally extending to bilateral mandibles, no redness or warmth associated, no palpable lymphadenopathy. Posterior and anterior cervical lymph nodes nonpalpable. No carotid bruit auscultated bilaterally. Cardiac: RRR, s1s2 Pulm: CTA bilaterally Abdomen: Soft, non-distended, janet-incisional tenderness noted. Dressing intact. No bowel sounds auscultated. NGT in place, approximately 300 cc bilious drainage noted overnight. Extremities: MOves all extremities, distal sensation intact. Skin warm and well perfused. 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 PMH significant for GERD and anxitey -Continue NPO ngt for now, await bowel function -Follow up am labs: Potassium repleted in iv fluids -Pain control, begin to taper down IV dilaudid dose, pt has 0.5 and 1 mg doses as prn -Ambulate: Goal for today 1 lap in am, 1 lap in afternoon. -Continue Incentive spirometry -GI ppx: Continue iv protonix -Will discuss with Dr. Tony Core Measures/Miscellaneous Venous Thromboembolism VTE Risk Factors: Surgery VTE Contraindications: No Contraindications VTE Diagnosis: No VTE Type: NONE VTE Confirmed by (Test): NONE Beta Fransico Is Beta Fransico a Home Med? No Antibiotics Is Patient on Antibiotics? No
[2016-12-17 09:25] LABS: ABSOLUTE BASOPHIL COUNT 0 /CUMM (0.0-0.2); ABSOLUTE EOSINOPHIL COUNT 0.5 /CUMM (0.0-0.7); ABSOLUTE GRANULOCYTE CT 6.3 /CUMM (1.4-6.5); ABSOLUTE LYMPH COUNT 1.1 /CUMM (1.2-3.4); ABSOLUTE MONOCYTE COUNT 0.6 /CUMM (0.10-0.60); BASOPHIL % 0.6 % (0.0-2.0); EOSINOPHIL % 5.5 % (0-5); GRANULOCYTE % 73.7 % (42.2-75.2); HEMATOCRIT 29.3 % (37-47); MEAN CORPUSCULAR HGB CONC 31.9 G/DL (33.0-37.0); MEAN CORPUSCULAR VOLUME 87.7 FL (81.0-99.0); MEAN PLATELET VOLUME 8.3 FL (7.4-10.4); PLATELET COUNT 369 /CUMM (130-400); RBC DISTRIBUTION WIDTH 15.1 % (11.5-14.5); RED BLOOD CELL CT 3.34 /CUMM (4.20-5.40); WHITE BLOOD CELL COUNT 8.6 /CUMM (4.8-10.8)
[2016-12-17 14:56] VITALS: BP 126/80
[2016-12-17 21:45] VITALS: BP 144/88
[2016-12-18 06:20] VITALS: BP 142/80
--- NOTE | 2016-12-18 06:21 | NUR ---
NURSING NOTE: WHEN RN ENTERED ROOM AT 0515, IT WAS NOTED THAT NGT OUTPUT WAS RED IN COLOR. EMMETT GRANDE NOTIFIED. PER PA, PLACE NGT ON HOLD UNTIL ROUNDS IN AM.
[2016-12-18 08:33] LABS: ABSOLUTE BASOPHIL COUNT 0 /CUMM (0.0-0.2); ABSOLUTE EOSINOPHIL COUNT 0.6 /CUMM (0.0-0.7); ABSOLUTE GRANULOCYTE CT 4.1 /CUMM (1.4-6.5); ABSOLUTE MONOCYTE COUNT 0.6 /CUMM (0.10-0.60); BASOPHIL % 0.6 % (0.0-2.0); EOSINOPHIL % 9.8 % (0-5); GRANULOCYTE % 65.1 % (42.2-75.2); HEMATOCRIT 29.1 % (37-47); MEAN CORPUSCULAR HGB 27.7 PG (27.0-31.0); MEAN CORPUSCULAR HGB CONC 31.8 G/DL (33.0-37.0); MEAN CORPUSCULAR VOLUME 87.3 FL (81.0-99.0); MEAN PLATELET VOLUME 8.2 FL (7.4-10.4); PLATELET COUNT 417 /CUMM (130-400); RBC DISTRIBUTION WIDTH 14.4 % (11.5-14.5); RED BLOOD CELL CT 3.34 /CUMM (4.20-5.40); WHITE BLOOD CELL COUNT 6.4 /CUMM (4.8-10.8)
[2016-12-18 14:16] VITALS: BP 136/80
--- NOTE | 2016-12-18 14:18 | PN- General Surgery ---
See Addendum Subjective Subjective: Patient reports having blood in her NG tube this morning. As a result, her NG tube was taken off suction. Currently, she states her pain in well controlled. She denies passing flatus or moving her bowels. She denies any nausea, vomiting, fever, chills or breast discomfort. She states she is ambulating frequently in the halls. Objective Vital Signs and I&Os Vital Signs Date Time Temp Pulse Resp B/P B/P Pulse O2 O2 Flow FiO2 Mean Ox Delivery Rate 12/18 0620 98.3 59 20 142/80 98 Room Air 12/17 2145 98.7 69 18 144/88 98 12/17 1456 99.0 60 18 126/80 99 Room Air Intake & Output 12/18 1600 12/18 0800 12/18 0000 12/17 1600 12/17 0800 12/17 0000 Intake Total 600 300 450 450 75 Output Total 225 750 300 400 Balance 375 300 -300 150 -325 Intake, IV 600 300 450 450 75 Intake, Oral 0 Output, 225 150 300 50 Gastric Drainage Output, Urine 600 350 Patient 135 lb Weight Physical Exam: General: Resting comfortably in bed, awake and alert in no acute distress HEENT: NG tube in place off suction with scant amount of heme in the tube and frothy bilious material in the canister. NG tube was aspirated at bedside with large syringe with bilious return and then flushed with 20 cc of sterile water and placed back to suction. Chest: Breast inspected and revealed a left inferior areola incision with steri- strips in place and a left axillary incision with steri-strips in place. No surronding erythema, swelling or drainge noted. Abdomen: Soft, non-distended with midline dressing in place which is c/d/i. Dressing was removed and revealed mildline incision closed with dorcas healing well with no signs of erythema, edema or drainage noted. Bowels sounds are absent and she is appropriately tender to palpation janet-incisionally. Extremities: No edema or calf tenderness b/l. Assessment/Plan Assessment/Plan This is a 46 y/o female with a history of anxiety and GERD who is POD 3, s/p left breast lumpectomy secondary to DCIS and distal gastrectomy secondary to gastric mass. Path is pending. From a surgical standpoint, continue NPO status with NG tube in place. NG tube was placed back to low continous suction. Await return of bowel function until advancing diet. Continue with IVF with supplemental potassium and IV Dilaudid as needed. Patient was encouraged to ambulate and use her incentive spirometry. GI and DVT ppx on board. Patient was discussed with Dr. Tony Core Measures/Miscellaneous Venous Thromboembolism VTE Risk Factors: Surgery VTE Contraindications: No Contraindications VTE Diagnosis: No VTE Type: NONE VTE Confirmed by (Test): NONE Beta Fransico Is Beta Fransico a Home Med? No Antibiotics Is Patient on Antibiotics? No
[2016-12-18 21:29] VITALS: BP 148/79
[2016-12-19 07:45] VITALS: BP 147/72
--- NOTE | 2016-12-19 09:59 | PN- General Surgery ---
See Addendum Subjective Subjective: Reports pain improves with iv dilaudid. NG tube removed by this morning. She reports some belching. No flatus or bm yet. Out of bed better every day. No dizziness. No shortness of breath. No chest pains. Voiding well. Objective Vital Signs and I&Os Vital Signs Date Time Temp Pulse Resp B/P B/P Pulse O2 O2 Flow FiO2 Mean Ox Delivery Rate 12/19 0745 98.6 71 18 147/72 99 Room Air 12/18 2129 98.0 65 16 148/79 94 Room Air 12/18 1416 99.4 65 20 136/80 99 Room Air Intake & Output 12/19 1600 12/19 0800 12/19 0000 12/18 1600 12/18 0800 12/18 0000 Intake Total 600 300 600 600 300 Output Total 414 353 2524 225 Balance 450 200 -860 375 300 Intake, IV 600 300 600 600 300 Intake, Oral 0 0 0 Output, 150 100 110 225 Gastric Drainage Output, Urine 1350 Physical Exam: General - alert & oriented x 3. comfortable. no acute distress. Lungs - clear bilaterally. no w/r/r. Cardiac - s1s2. reg. Abdomen - soft. midline incision approximated with dorcas. no erythema or exudates. expected janet-incisional tenderness. nondistended. Extremities - warm bilaterally. no c/c/e. calves soft and nontender b/l. Current Medications: Current Medications Sig/Nicolle Start time Last Medication Dose Route Stop Time Status Admin Acetaminophen 1,000 MG .STK-MED ONE 12/18 1258 DC IV 12/18 1259 Acetaminophen 1,000 MG Q6P PRN 12/14 1930 AC 12/18 IV 1300 Heparin Sodium 5,000 UNIT Q8 12/15 0600 AC 12/19 (Porcine) SC 0629 Hydromorphone HCl 0.5 MG Q4P PRN 12/15 1800 AC 12/18 IV 1515 Hydromorphone HCl 1 MG Q4P PRN 12/15 1800 AC 12/19 IV 0401 Ondansetron HCl 4 MG Q6P PRN 12/14 1930 AC IV Ondansetron HCl 4 MG Q6-PRN PRN 12/14 1715 AC IV Pantoprazole Sodium 40 MG DAILY 12/15 1000 AC 12/18 IV 0916 Phenol 2 SPRAY Q2P PRN 12/16 1230 AC 12/17 EXT 1100 Potassium Chloride 20 MEQ Q13H 12/16 0900 AC 12/19 Dextrose/Sodium 1,000 ML IV 0403 Chloride Promethazine HCl 12.5 MG Q6P PRN 12/14 1930 AC IV 12/21 1729 Results Last 48 Hours of Labs: Laboratory Tests 12/18 0618 Chemistry Sodium (137 - 145 mmol/L) 138 Potassium (3.5 - 5.1 mmol/L) 3.9 Chloride (98 - 107 mmol/L) 102 Carbon Dioxide (22 - 30 mmol/L) 27 Anion Gap (5 - 16) 10 BUN (7 - 17 mg/dL) 4 L Creatinine (0.5 - 1.0 mg/dL) 0.6 Estimated GFR (>60 ml/min) > 60 BUN/Creatinine Ratio (7 - 25 %) 6.7 L Hematology CBC w Diff NO MAN DIFF REQ WBC (4.8 - 10.8 /CUMM) 6.4 RBC (4.20 - 5.40 /CUMM) 3.34 L Hgb (12.0 - 16.0 G/DL) 9.2 L Hct (37 - 47 %) 29.1 L MCV (81.0 - 99.0 FL) 87.3 MCH (27.0 - 31.0 PG) 27.7 RDW (11.5 - 14.5 %) 14.4 Plt Count (130 - 400 /CUMM) 417 H MPV (7.4 - 10.4 FL) 8.2 Gran % (42.2 - 75.2 %) 65.1 Lymphocytes % (20.5 - 51.1 %) 15.2 L Monocytes % (1.7 - 9.3 %) 9.3 Eosinophils % (0 - 5 %) 9.8 H Basophils % (0.0 - 2.0 %) 0.6 Absolute Granulocytes (1.4 - 6.5 /CUMM) 4.1 Absolute Lymphocytes (1.2 - 3.4 /CUMM) 1.0 L Absolute Monocytes (0.10 - 0.60 /CUMM) 0.6 Absolute Eosinophils (0.0 - 0.7 /CUMM) 0.6 Absolute Basophils (0.0 - 0.2 /CUMM) 0 PUBS MCHC (33.0 - 37.0 G/DL) 31.8 L Assessment/Plan Assessment/Plan This is a 46 year old female with hx gerd and anxiety, POD#5 s/p L breast lumpectomy for DCIS and distal gastrectomy for bleeding lesion currently npo except for rare ice chips. ng tube removed pain controlled with iv dilaudid oob/ambulation encouraged hep sc - dvt ppx protonix - gi ppx f/u labs will d/w Core Measures/Miscellaneous Venous Thromboembolism VTE Risk Factors: Surgery VTE Contraindications: No Contraindications VTE Diagnosis: No VTE Type: NONE VTE Confirmed by (Test): NONE Beta Fransico Is Beta Fransico a Home Med? No Antibiotics Is Patient on Antibiotics? No
[2016-12-19 14:18] VITALS: BP 144/80
[2016-12-19 23:38] VITALS: BP 143/78
[2016-12-20 08:03] VITALS: BP 145/80
[2016-12-20 08:29] LABS: ABSOLUTE BASOPHIL COUNT 0.1 /CUMM (0.0-0.2); ABSOLUTE EOSINOPHIL COUNT 0.9 /CUMM (0.0-0.7); ABSOLUTE GRANULOCYTE CT 3.4 /CUMM (1.4-6.5); ABSOLUTE LYMPH COUNT 1.4 /CUMM (1.2-3.4); ABSOLUTE MONOCYTE COUNT 0.6 /CUMM (0.10-0.60); BASOPHIL % 1.6 % (0.0-2.0); EOSINOPHIL % 13.8 % (0-5); GRANULOCYTE % 53.2 % (42.2-75.2); HEMATOCRIT 31.7 % (37-47); MEAN CORPUSCULAR HGB 27.3 PG (27.0-31.0); MEAN CORPUSCULAR HGB CONC 31.3 G/DL (33.0-37.0); MEAN PLATELET VOLUME 8.3 FL (7.4-10.4); PLATELET COUNT 450 /CUMM (130-400); RBC DISTRIBUTION WIDTH 15.2 % (11.5-14.5); RED BLOOD CELL CT 3.65 /CUMM (4.20-5.40); WHITE BLOOD CELL COUNT 6.4 /CUMM (4.8-10.8)
--- NOTE | 2016-12-20 11:28 | Operative Report ---
Operative/Inv Procedure Report Surgery Date: 12/14/16 Name of Procedure: Distal gastrectomy, BII reconstruction with Banda enteroenterostomy Pre-Operative Diagnosis: Bleeding obstructing distal gastric tumor Post-Operative Diagnosis: same Estimated Blood Loss: scant Surgeon/Coal Conveyor Operator: MD Ernestina Cotton Anesthesia: general endotracheal tube Operative/Procedure Note Note: Patient was placed on the OR table in the supine position. After successful induction of general anesthesia, timeouts were done, Cleaning catheter was placed, IV antibiotics were given. The patient's abdomen was prepped and draped in the usual sterile fashion. We aimed a midline laparotomy incision between the xiphoid and the umbilicus, crossing neither. This line was infiltrated with local anesthetic and then the incision was made with a 10 blade and deepened with cautery to the linea alba which was incised sharply between 2 baby closure clamps retracting upwards to enter the peritoneum there was no free fluid, then we set up a Alvarez retractor, we did confirm the position of the tip of the NG tube proximally, we could feel the tumor, about 5 cm long ending about a centimeter from the pylorus. We could see the vein of Harrington, both superiorly and inferiorly, that was just right at the end of this palpable rounded mass. The stomach itself was a little bit thickened from being chronically obstructed, then from the proximal end of the tumor, both on the greater and lesser curvature, we measured about 7 to 8 cm proximally, and that was going to be our proximal line of resection. We also on the distal end got a sense of the first portion of the duodenal bulb and to me it seemed supple. It was not edematous. And then we mobilized the omentum off of the transverse mesocolon in a [id number] direction. The omentum was very thin and fused in many places to the transverse mesocolon. There was some chronic scarring deep near the root of the mesentery in the lesser sac and this area of the tumor was pressing down and adherent to the anterior capsule of the pancreas, and we were very concerned whether or not there was some tumor involvement here, but actually it was just adherent. There was no edema, and we spent additional time trying to dissect that off, not at this point, later on we did. After freeing the omentum off the transverse colon and it from the mesocolon, we opened the lesser sac. We could feel behind the stomach and get a better exposure, got a sense of the lesser sac. We opened that. We did not see any gross adenopathy. We chose our lines of resection distally. It was 3 cm past the palpable tumor. It was past the vein of Harrington 3 cm into the duodenal bulb, and then at the point on the greater curvature where the 2 epiploic's curve into the stomach, we did a proximal resection with a 4.8 mm green cartridge-loaded Endo ASHLEIGH stapler. We used one to get across that proximal margin, and we paid care not to include the NG tube into the stapling, and then we did the infrapyloric dissection. We dissected around the duodenum superiorly, divided the right gastric artery and tiny branches, and also branches of the PDA. I feel that we were very close to the main gastric duodenal artery. We identified the middle colic vessels and the gastric epiploic vessels that converged and we had to separate them, and in them gently we got a sense of the packet of lymph nodes in the infrapyloric region. We developed that plane. We got a sense of where it would be good to divide the left gastroepiploic vessels, both artery and vein, which we had to do twice, leaving a piece on the packet of lymph nodes. We took the vein first, then later on we took the artery, both times with suture and the ligasure, and then we dissected around the duodenum circumferentially, and at this point this is where it took more time to get it from the pancreas. Then after we got distally to the vein of Harrington 3 cm, we divided that with a ASHLEIGH stapler, the henderson tri cartridge. There was no gross spillage. The lymph node- bearing areas, both supra- and infrapyloric were not part of the specimen distally. We also cleared off the proximal end of resection around the stomach which we had divided and which included some branches of left gastric artery superiorly. We divided the lesser sac with harmonic scalpel. Then the specimen was freed. Our plan was to do an antecolic gastrojejunostomy in Billroth II fashion with a jejunojejunostomy (Banda), about 25 cm distal to the efferent limb. We aimed the gastrojej posteriorly on the gastric remnant, making it parallel to the staple line, about 2.5 cm off of the staple line, and at this point we tacked up the appropriate loop of jejunum with interrupted Lembert 3-0 silk suture pop-offs, made adjacent enterotomies, held them up with Allis clamps, checked the NG tube and then inserted the jaws of a ASHLEIGH 60 load, again the black cartridge, and fired. The common jejunogastrostomy was then closed with a TA 60. Then we measured about 25 cm distal on the efferent limb and brought it together [id number] with the proximal small bowel to afferent limb, about 10 cm distal to the ligament of Treitz and connected those with [id number] anastomosis, again made an adjacent enterotomies underneath the antimesenteric borders. We used the henderson cartridge Endo ASHLEIGH stapler, fired it once. The common enterotomy pulled up between Allis clamps and fired across and T'd it off with another load. We checked those 2 anastomoses throughout the remainder of the case. Then we irrigated and aspirated. I checked the area of the duodenal stump. It appeared grossly vascular, not discolored. There was no bleeding. We then irrigated and aspirated, and then we closed back up in layers. We used 0 Maxon single-stranded suture for the midline laparotomy incision, and then irrigated the subcutaneous layer and closed the skin with dorcas, and then we used an island dressing. LAP AND SPONGE COUNTS: Correct. WOUND EXPECTANCY: Clear/contaminated. IV FLUIDS: Crystalloid. COMPLICATIONS: None. The patient tolerated the procedure well, was awakened, extubated, and returned to the recovery room in satisfactory condition. Cleaning was left in.
--- NOTE | 2016-12-20 11:29 | PN- General Surgery ---
See Addendum Subjective Subjective: Patient was seen and examined earlier this morning. She states she feels well. She states her pain is under control and has been ambulating frequently in the [place]. Patient states she is passing flatus and her last bm was yesterday. She states she has not started clear diet but has been tolerating ice chips without any nausea or vomiting. Objective Vital Signs and I&Os Vital Signs Date Time Temp Pulse Resp B/P B/P Pulse O2 O2 Flow FiO2 Mean Ox Delivery Rate 12/20 0803 98.5 75 18 145/80 99 Room Air 12/19 2338 98.2 61 20 143/78 100 Room Air 12/19 1418 98.3 65 18 144/80 99 Intake & Output 12/20 1600 12/20 0800 12/20 0000 12/19 1600 12/19 0812/19 0000 Intake Total 465 525 600 300 Output Total 900 150 100 Balance 465 -375 450 200 Intake, IV 225 525 600 300 Intake, Oral 240 0 0 Output, 150 100 Gastric Drainage Output, Urine 900 Physical Exam: General: Resting comfortably in bed, awake and alert in no acute distress Chest: Breast inspected and revealed a left inferior areola incision with steri- strips in place and a left axillary incision with steri-strips in place. No surronding erythema, swelling or drainge noted. Abdomen: Soft, non-distended with midline incision closed with dorcas healing well with no signs of infection. Bowels sounds are hypoactive and she is nontender to palpation. Extremities: No edema or calf tenderness b/l. Current Medications: Current Medications Sig/Nicolle Start time Last Medication Dose Route Stop Time Status Admin Acetaminophen 1,000 MG Q6P PRN 12/14 1930 AC 12/18 IV 1300 Heparin Sodium 5,000 UNIT Q8 12/15 0600 AC 12/20 (Porcine) SC 0550 Hydromorphone HCl 0.5 MG Q4P PRN 12/15 1800 AC 12/18 IV 1515 Hydromorphone HCl 1 MG Q4P PRN 12/15 1800 AC 12/20 IV 0549 Ondansetron HCl 4 MG Q6P PRN 12/14 1930 AC IV Ondansetron HCl 4 MG Q6-PRN PRN 12/14 1715 AC IV Pantoprazole Sodium 40 MG DAILY 12/15 1000 AC 07/20 IV 0850 Patient Medication 1 ED .STK-MED ONE 12/19 1400 DC Teaching ED 12/19 1401 Phenol 2 SPRAY Q2P PRN 12/16 1230 AC 12/17 EXT 1100 Potassium Chloride 20 MEQ Q13H 12/16 0900 DC 12/19 Dextrose/Sodium 1,000 ML IV 0403 Chloride Promethazine HCl 12.5 MG Q6P PRN 12/14 1930 AC IV 12/21 1729 Results Last 48 Hours of Labs: Laboratory Tests 12/20 0608 Chemistry Sodium (137 - 145 mmol/L) 139 Potassium (3.5 - 5.1 mmol/L) 3.9 Chloride (98 - 107 mmol/L) 100 Carbon Dioxide (22 - 30 mmol/L) 26 Anion Gap (5 - 16) 13 BUN (7 - 17 mg/dL) 9 Creatinine (0.5 - 1.0 mg/dL) 0.7 Estimated GFR (>60 ml/min) > 60 BUN/Creatinine Ratio (7 - 25 %) 12.9 Hematology CBC w Diff NO MAN DIFF REQ WBC (4.8 - 10.8 /CUMM) 6.4 RBC (4.20 - 5.40 /CUMM) 3.65 L Hgb (12.0 - 16.0 G/DL) 9.9 L Hct (37 - 47 %) 31.7 L MCV (81.0 - 99.0 FL) 87.0 MCH (27.0 - 31.0 PG) 27.3 RDW (11.5 - 14.5 %) 15.2 H Plt Count (130 - 400 /CUMM) 450 H MPV (7.4 - 10.4 FL) 8.3 Gran % (42.2 - 75.2 %) 53.2 Lymphocytes % (20.5 - 51.1 %) 21.7 Monocytes % (1.7 - 9.3 %) 9.7 H Eosinophils % (0 - 5 %) 13.8 H Basophils % (0.0 - 2.0 %) 1.6 Absolute Granulocytes (1.4 - 6.5 /CUMM) 3.4 Absolute Lymphocytes (1.2 - 3.4 /CUMM) 1.4 Absolute Monocytes (0.10 - 0.60 /CUMM) 0.6 Absolute Eosinophils (0.0 - 0.7 /CUMM) 0.9 Absolute Basophils (0.0 - 0.2 /CUMM) 0.1 PUBS MCHC (33.0 - 37.0 G/DL) 31.3 L Assessment/Plan Assessment/Plan This is a 46 y/o female with a history of anxiety and GERD who is POD 6, s/p left breast lumpectomy secondary to DCIS and distal gastrectomy secondary to gastric mass who is recovering well. Continue clear liquid diet. Transition patient to oral analgesics with IV analgesics for breakthrough pain. Patient was encouraged to ambulate and use her incentive spirometry. GI and DVT ppx on board. Patient will be discussed with Dr. Tony Core Measures/Miscellaneous Venous Thromboembolism VTE Risk Factors: Surgery VTE Contraindications: No Contraindications VTE Diagnosis: No VTE Type: NONE VTE Confirmed by (Test): NONE Beta Fransico Is Beta Fransico a Home Med? No Antibiotics Is Patient on Antibiotics? No
[2016-12-20 14:50] VITALS: BP 150/80
[2016-12-20 22:29] VITALS: BP 114/72
[2016-12-21 06:40] VITALS: BP 140/70
--- NOTE | 2016-12-21 09:11 | PN- General Surgery ---
See Addendum Subjective Subjective: There were no acute events overnight. Patient was started on clear liquids yesterday, some of which she is tolerating, however she admits to some belching and regurgitation after drinking the clear Ensure. She also notices some epigastric bloating after drinking liquids. She has passed flatus once, but no bowel movement as of yet. Pain is otherwise relatively controlled. She is and awaiting frequently and voiding well. Otherwise denies headache, dizziness, chest pain, shortness of breath. Objective Vital Signs and I&Os Vital Signs Date Time Temp Pulse Resp B/P B/P Pulse O2 O2 Flow FiO2 Mean Ox Delivery Rate 12/21 0640 98.1 66 20 140/70 99 Room Air 12/20 2229 97.6 72 19 114/72 99 12/20 1450 97.9 64 18 150/80 97 Room Air Intake & Output 12/21 1600 12/21 0800 12/21 0000 12/20 1600 12/20 0800 12/20 0000 Intake Total 480 720 465 Output Total 850 600 Balance -370 120 465 Intake, IV 225 Intake, Oral 480 720 240 Output, Urine 850 600 Physical Exam: Gen.: Patient is awake and alert. Her mood is somewhat depressed today. No acute distress. Cardiac: Regular Pulmonary: Lungs are clear to auscultation bilaterally. No wheezes or rales are appreciated. Chest: The left breast incisions remain clean, dry, and intact with Steri-Strips in place. Abdomen: Nondistended. The midline supraumbilical incision is clean, dry, and intact with dorcas in place. There is no surrounding erythema, ecchymosis, or drainage. There is some mild janet-incisional swelling and possibly some fluctuance, which may indicate a small seroma. (Patient notices this area increase and decrease throughout the day.) Extremities: No significant edema or Tenderness are appreciated. Results Last 48 Hours of Labs: Laboratory Tests 12/20 0608 Chemistry Sodium (137 - 145 mmol/L) 139 Potassium (3.5 - 5.1 mmol/L) 3.9 Chloride (98 - 107 mmol/L) 100 Carbon Dioxide (22 - 30 mmol/L) 26 Anion Gap (5 - 16) 13 BUN (7 - 17 mg/dL) 9 Creatinine (0.5 - 1.0 mg/dL) 0.7 Estimated GFR (>60 ml/min) > 60 BUN/Creatinine Ratio (7 - 25 %) 12.9 Hematology CBC w Diff NO MAN DIFF REQ WBC (4.8 - 10.8 /CUMM) 6.4 RBC (4.20 - 5.40 /CUMM) 3.65 L Hgb (12.0 - 16.0 G/DL) 9.9 L Hct (37 - 47 %) 31.7 L MCV (81.0 - 99.0 FL) 87.0 MCH (27.0 - 31.0 PG) 27.3 RDW (11.5 - 14.5 %) 15.2 H Plt Count (130 - 400 /CUMM) 450 H MPV (7.4 - 10.4 FL) 8.3 Gran % (42.2 - 75.2 %) 53.2 Lymphocytes % (20.5 - 51.1 %) 21.7 Monocytes % (1.7 - 9.3 %) 9.7 H Eosinophils % (0 - 5 %) 13.8 H Basophils % (0.0 - 2.0 %) 1.6 Absolute Granulocytes (1.4 - 6.5 /CUMM) 3.4 Absolute Lymphocytes (1.2 - 3.4 /CUMM) 1.4 Absolute Monocytes (0.10 - 0.60 /CUMM) 0.6 Absolute Eosinophils (0.0 - 0.7 /CUMM) 0.9 Absolute Basophils (0.0 - 0.2 /CUMM) 0.1 PUBS MCHC (33.0 - 37.0 G/DL) 31.3 L Assessment/Plan Assessment/Plan She is a 46-year-old female, who is now postoperative day #7 status post left breast lumpectomy for recurrent DCIS and a distal gastrectomy for a bleeding/ ulcerating gastric mass. Plan: -Okay to continue clears cautiously for now. -Pain control with IV Dilaudid as needed. Okay to convert to oral route when tolerating better by mouth. -Prilosec for GI prophylaxis. -Subcutaneous heparin and Alps for DVT prophylaxis. -Breast path is complete, however still awaiting stomach path. -Anticipate discharge over the next couple of days, however patient should be tolerating her clears better before doing so. Core Measures/Miscellaneous Venous Thromboembolism VTE Risk Factors: Surgery VTE Contraindications: No Contraindications VTE Diagnosis: No VTE Type: NONE VTE Confirmed by (Test): NONE Beta Fransico Is Beta Fransico a Home Med? No Antibiotics Is Patient on Antibiotics? No
[2016-12-21 14:29] VITALS: BP 140/80
--- NOTE | 2016-12-21 19:34 | Surgical Discharge Summary ---
Visit Information Visit Dates Admission Date: 12/14/16 Discharge Date: 12/22/16 History of Present Illness Chief Complaint: Left breast mass, stomach mass Medical History Blood Transfusion Hx: Yes Neurological: NONE EENT: NONE Cardiovascular: NONE Respiratory: NONE Gastrointestinal: GASTRIC OUTLET OBSTRUCTION Hepatic: NONE Renal: NONE Musculoskeletal: NONE Psychiatric: NONE Endocrine: NONE Blood Disorders: NONE Cancer(s): breast cancer (DCIS) [employer]/Reproductive: NONE History of MRSA: No History of VRE: No History of CDIFF: No Isolation History: Standard Surgical History Pertinent Surgical History: lumpectomy X2 , distal gastrectomy Psychosocial History Where Do You Live? Home Who Do You Live With? Spouse Services at Home: None What is Your Primary Language? Montenegrin Review of Systems: See H&P Physical Exam: See H&P Hospital Course Course Attending Physician: DESTINEE WILLINGHAM MD Primary Care Physician: SUDHAKAR HIDALGO MD Hospital Course: Patient is a 46-year-old female with history of GERD, anxiety and left-sided breast DCIS, who was admitted to [facility] on 12/14/2016 for an elective planned reexcision left lumpectomy for recurrent DCIS and distal gastrectomy for excision of an ulcerating, bleeding, obstructive distal stomach mass. Patient tolerated the procedure well and was transferred to the general medical floor in stable condition. Bowel function was very slow to return. Nasogastric tube was removed on postoperative day #5. Diet was slowly and cautiously advanced due to some intolerance with liquids initially. She was eventually tolerating liquids and cleared for discharge. Complications: None Allergies: Coded Allergies: azithromycin (From ZITHROMAX) (DIARRHEA 10/13/16) cephalexin (From KEFLEX) (DIARRHEA 10/13/16) tetracycline (DIARRHEA 10/13/16) Significant Procedures: 12/14/2016 left reexcision lumpectomy and distal gastrectomy Disposition Summary Disposition Principal Diagnosis: Left breast DCIS, distal stomach mass Additional Diagnosis: GERD, anxiety Discharge Disposition: home or self care Discharge Instructions General Discharge Information Code Status: Full Code Patient's Diet: FULL LIQUID Patient's Activity: No strenuous activity or heavy lifting, pushing, or pulling. No driving while using narcotics. Follow-Up Instructions/Appts: May shower as desired. Please keep incision clean and dry otherwise. Leave Steri-Strips in place on the left breast until they fall off on their own. Please follow-up with both Dr. Willingham and Dr. Tony in 1-2 weeks. Please report any of the following symptoms to empty: Fever greater than 101, vomiting, chest pain, shortness of breath, drainage from any of the the wounds. Medications at Discharge Discharge Medications: Stop taking the following medications: Pantoprazole Sodium (Protonix) 40 MG TABLET. ORAL TWICE DAILY Qty = 60 Docusate Sodium (Colace) 100 MG CAPSULE ORAL DAILY Continue taking these medications: Ferrous Sulfate (Ferrous Sulfate) 325 MG (65 MG IRON) TABLET. 325 Milligram ORAL TWICE DAILY Qty = 60 Comments: Last Taken:10/17/16 Time:10:26 AM Alprazolam (Xanax) 0.5 MG TABLET 1 Tablet ORAL NIGHTLY Start taking the following new medications: Pantoprazole Sodium (Protonix) 40 MG TABLET. 1 Tablet ORAL DAILY Qty = 30 No Refills Instructions: OK TO DECREASE USUAL DOSE TO ONCE DAILY The following medications have been changed: Old: Calcium Carbonate (Calcium Carbonate) 200 MG CALCIUM (500 MG) TAB.CHEW 500 Milligram ORAL DAILY Qty = 30 New: Calcium Carbonate (Calcium) 500 MG CALCIUM (1,250 MG) TABLET 1 Tablet ORAL DAILY Days = 30 Comments: Last Taken:10/17/16 Time:10:25 AM Old: Oxycodone HCl/Acetaminophen (Percocet 5-325 MG Tablet) 5 MG-325 MG TABLET 1 Tablet ORAL THREE TIMES DAILY as needed for PAIN New: Oxycodone HCl/Acetaminophen (Percocet 5-325 MG Tablet) 5 MG-325 MG TABLET 1 Tablet ORAL EVERY 4-6 HOURS NEEDED as needed for PAIN Qty = 30
[2016-12-21] MEDS ORDERED: PERCOCET 5-3251 EACH PO (19:38)
[2016-12-21] MEDS ORDERED: CALCIUM500 M1 PO (19:39)
[2016-12-21] MEDS ORDERED: PROTONIX40 M3 PO (19:41)
--- NOTE | 2016-12-21 19:48 | Patient Discharge Instructions ---
Discharge Instructions General Discharge Information You were seen/treated for: Left breast cancer, stomach mass You had these procedures: Left breast reexcision lumpectomy by Dr. Grey, distal gastrectomy by Tawanda Tony MD Watch for these problems: Fever greater than 101, significant nausea, vomiting, chest pain, shortness of breath, drainage from any of the wounds. Call Surgeon to remove: Bushnell (2 WEEKS POSTOP) Do not soak the wound: Yes No bath, but you may shower: Yes Other wound care: You may shower as desired. Otherwise you should keep the wounds clean and dry. Leave Steri-Strips in place on the breast until a fall off on their own. Diet Continue normal diet: No Recommended Diet: Full Liquids Activity Full Activity/No Limits: No Activity Self Limited: Yes Pounds, do NOT lift more than: 5 Other activity limits: No strenuous activity or heavy lifting, pushing, or pulling. No driving while using narcotics. Acute Coronary Syndrome Inclusion Criteria At DC or during hospital stay patient has or had the following: ACS DIAGNOSIS No Discharge Core Measures Meds if any: Prescribed or Continued at Discharge Meds if any: NOT Prescribed or Continued at Discharge Congestive Heart Failure Inclusion Criteria At DC or during hospital stay patient has or had the following: CHF DIAGNOSIS No Discharge Core Measures Meds if any: Prescribed or Continued at Discharge Meds if any: NOT Prescribed or Continued at Discharge Cerebrovascular accident Inclusion Criteria At DC or during hospital stay patient has or had the following: CVA/TIA Diagnosis No Discharge Core Measures Meds if any: Prescribed or Continued at Discharge Meds if any: NOT Prescribed or Continued at Discharge Venous thromboembolism Inclusion Criteria VTE Diagnosis No VTE Type NONE VTE Confirmed by (Test) NONE Discharge Core Measures - Per Current guidelines, there needs to be overlap - treatment for the first 5 days of Warfarin therapy. - If discharged on Warfarin prior to 5 days of - overlap therapy, the patient will need to be - assessed for post discharge needs including - *Post discharge parental anticoagulation - *Warfarin and/or parental anticoagulation education - *Follow up date to check INR post discharge At least 5 days overlap therapy as Inpatient No Meds if any: Prescribed or Continued at Discharge Note: Overlap Therapy is Warfarin and Anticoagulant Meds if any: NOT Prescribed or Continued at Discharge
[2016-12-21 22:36] VITALS: BP 120/52
[2016-12-22 06:00] VITALS: BP 128/64
--- NOTE | 2016-12-22 07:49 | PN- General Surgery ---
See Addendum Subjective Subjective: Patient feels slightly better today than yesterday. No flatus, no bowel movement. She states she walked quite a bit yesterday. No nausea no vomiting. She is tolerating clears to a point and it feels full in the epigastric region. Objective Vital Signs and I&Os Vital Signs Date Time Temp Pulse Resp B/P B/P Pulse O2 O2 Flow FiO2 Mean Ox Delivery Rate 12/22 0600 97.6 61 18 128/64 100 Room Air 12/21 2236 98.1 55 18 120/52 99 Room Air 12/21 1429 98.1 56 20 140/80 100 Intake & Output 12/22 0800 12/22 0000 12/21 1600 12/21 0800 12/21 0000 12/20 1600 Intake Total 240 540 600 480 720 Output Total 325 500 800 850 600 Balance -85 40 -200 -370 120 Intake, Oral 240 540 600 480 720 Output, Urine 325 500 800 850 600 Physical Exam: Well-developed well-nourished no apparent distress. HEENT: Atraumatic, extraocular motion intact Neck: Supple, no lymphadenopathy Respiratory: No respiratory distress Abdomen: Midline incision is healing well. Minimally distended abdomen Hypoactive bowel sounds. Minimal tenderness. Extremities: No edema, no calf pain Neuro: Alert and oriented x3 Psych: Mood affect normal, normal memory normal judgment. Skin: Warm and dry, no rash on exposed skin Assessment/Plan Assessment/Plan 46-year-old female, who is now postoperative day #8 status post left breast lumpectomy for recurrent DCIS and a distal gastrectomy for a bleeding/ulcerating gastric mass. Plan: -Continue clears, advance to full for lunch, possible DC later today -Prilosec for GI prophylaxis. -Subcutaneous heparin and Alps for DVT prophylaxis. -Will Discuss with attending Core Measures/Miscellaneous Venous Thromboembolism VTE Risk Factors: Surgery VTE Contraindications: No Contraindications VTE Diagnosis: No VTE Type: NONE VTE Confirmed by (Test): NONE Beta Fransico Is Beta Fransico a Home Med? No Antibiotics Is Patient on Antibiotics? No
[2016-12-22 14:54] VITALS: BP 152/90
[2016-12-22 23:02] VITALS: BP 126/58
[2016-12-23 06:28] VITALS: BP 132/74
--- NOTE | 2016-12-23 07:04 | PN- General Surgery ---
See Addendum Subjective Subjective: Reports small flatus last evening. No bm. Tolerating fulls. No nausea. Improving rash with benadryl and cortisone cream. Reports some epigastric "pressure" after taking pills. Pain controlled with percocet. Walking well. No dizziness. No shortness of breath. Voiding well. Objective Vital Signs and I&Os Vital Signs Date Time Temp Pulse Resp B/P B/P Pulse O2 O2 Flow FiO2 Mean Ox Delivery Rate 12/23 0628 97.7 52 20 132/74 100 12/22 2302 97.5 54 18 126/58 100 Room Air 12/22 1454 98.4 56 20 152/90 100 Room Air Intake & Output 12/23 0812/23 0000 12/22 1600 12/22 0812/22 0000 12/21 1600 Intake Total 200 840 240 540 600 Output Total 325 500 800 Balance 200 840 -85 40 -200 Intake, Oral 200 840 240 540 600 Output, Urine 325 500 800 Physical Exam: General - alert & oriented x 3. comfortable. no acute distress. Lungs - clear bilaterally. no w/r/r. Cardiac - s1s2. reg. Abdomen - soft. flat. midline incision well approximated with dorcas. no erythema or exudates. expected janet-incisional tenderness. bowel sounds appreciated. Extremities - warm bilaterally. no c/c/e. calves soft and nontender b/l. Current Medications: Current Medications Sig/Nicolle Start time Last Medication Dose Route Stop Time Status Admin Acetaminophen 325 MG Q6P PRN 12/20 1145 AC PO Diphenhydramine HCl 50 MG Q6 PRN 12/22 1400 12/23 PO 0541 Heparin Sodium 5,000 UNIT Q8 12/15 0600 DC 12/22 (Porcine) SC 0513 Hydrocortisone 1 MERLENE BID PRN 12/22 1400 AC 12/22 EXT 1427 Hydromorphone HCl 0.5 MG Q4P PRN 12/15 1800 AC 12/18 IV 1515 Hydromorphone HCl 1 MG Q4P PRN 12/15 1800 DC 12/22 IV 1139 Omeprazole 40 MG DAILY AC 12/21 0700 AC 12/23 PO 0539 Ondansetron HCl 4 MG Q6P PRN 12/14 1930 AC IV Ondansetron HCl 4 MG Q6-PRN PRN 12/14 1715 AC IV Oxycodone/ 1 TAB Q4-PRN PRN 12/20 1130 AC Acetaminophen PO Oxycodone/ 2 TAB Q4-6 PRN PRN 12/20 1130 AC 12/23 Acetaminophen PO 0539 Phenol 2 SPRAY Q2P PRN 12/16 1230 AC 12/17 EXT 1100 Assessment/Plan Assessment/Plan This 46-year-old female is now POD#9 s/p left breast lumpectomy for recurrent DCIS and distal gastrectomy, BII reconstruction with Banda enteroenterostomy for bleeding obstructing distal gastric tumor tolerating fulls. passing some flatus, but no bm yet. may consider advancing diet continue percocet prn pain control prilosec - gi ppx hep sc - dvt ppx hydrocortisone cream / benadryl prn itchy rash (resolving) d/c planning will d/w Core Measures/Miscellaneous Venous Thromboembolism VTE Risk Factors: Surgery VTE Contraindications: No Contraindications VTE Diagnosis: No VTE Type: NONE VTE Confirmed by (Test): NONE Beta Fransico Is Beta Fransico a Home Med? No Antibiotics Is Patient on Antibiotics? No
--- NOTE | 2016-12-23 13:00 | NUR ---
PT CALLED ME INTO ROOM STATING THAT AFTER EATING 1/2 OF SOUP AND 1 SALTINE, ABDOMEN STARTED "BLOWING UP". PT STATES ABDOMEN IS ALREADY STARTING TO RESOLVE. PT ALSO STARTED TO FEEL DIZZINES. BP 132/72, HR 63, TEMP 98.7, RESP 20. SURGICAL EMMETT BROWN NOTIFIED.
--- NOTE | 2016-12-23 13:30 | NUR ---
PT STATES FEELING BETTER. ABDOMEN BACK TO NORMAL. DIZZINESS RESOLVING.
[2016-12-23 15:15] VITALS: BP 118/70
--- NOTE | 2016-12-23 20:17 | NUR ---
1945-CALLED INTO ROOM, PT C/O NAUSEA, MEDICATED WITH ZOFRAN, AND OFFERED JOSELO JULIANA. 2004-FEELING HAS PASSED, FEELS MORE COMFORTABLE,. CONTINUE TO MONITOR.
--- NOTE | 2016-12-23 21:45 | NUR ---
TODAY'S DINNER DIET ADVANCED TO REGULAR, ATE 50%, SEEMED TO TOLERATE WELL, SHORTLY AFTER DINNER, AMBULATING AROUND UNIT, LOOKING WELL. 2129-PATIENT INFORMED ME SHE VOMITED A LARGE AMOUNT, 1 1/2 HOURS AFTER ZOFRAN DOSE. STATES IT WAS PROBABLY HER DINNER. NAUSEA HAS IMPROVED AFTER VOMITING. SURGICAL PA UPDATED.
[2016-12-23 22:45] VITALS: BP 126/72
[2016-12-24 07:27] VITALS: BP 140/72
--- NOTE | 2016-12-24 07:38 | PN- General Surgery ---
See Addendum Subjective Subjective: Diet advanced to regular for dinner last night, one episode of moderate to large amout of emesis reported. Pt continues to have some residual nausea but states that following emesis she ate small crackers which helped the nausea. She denies chest pain, shortness of breath and difficulty breathing. She is ambulating, she is voiding. She was passing small amounts of flatus, is unsure if she passed flatus since vomitting. Objective Vital Signs and I&Os Vital Signs Date Time Temp Pulse Resp B/P B/P Pulse O2 O2 Flow FiO2 Mean Ox Delivery Rate 12/24 07 98.6 62 20 140/72 98 12/23 2245 98.7 60 20 126/72 100 12/23 1700 52 12/23 1515 97.9 45 20 118/70 98 Room Air Intake & Output 12/24 0800 12/24 0000 12/23 1600 12/23 0800 12/23 0000 12/22 1600 Intake Total 600 350 200 200 840 Output Total 200 Balance 400 350 200 200 840 Intake, Oral 600 350 200 200 840 Number 0 Bowel Movements Output, 200 Emesis Physical Exam: General: Alert and oriented x3, no acute distress Cardiac: RRR Pulm: Non-labored respiratory effort Abdomen: Softly distended, hypoactive bowel sounds ausculated, midline incision with no surrounding erythema or drainage Extremities: Moves all extremities, distal sensation intact, skin warm and well perfused, dp pulses palpable, bilateral calves soft and non-tender Assessment/Plan Assessment/Plan This 46-year-old female is now POD#10 s/p left breast lumpectomy for recurrent DCIS and distal gastrectomy, BII reconstruction with Banda enteroenterostomy for bleeding obstructing distal gastric tumor. Diet regressed from regular to fulls after one episode of moderate to large emesis. -Consider Multiview abdominal xray this am -Full liquid diet this am -OOB/ambulation encouraged -continue percocet prn pain control -prilosec - gi ppx -hep sc - dvt ppx -hydrocortisone cream / benadryl prn itchy rash (resolving) -will d/w Core Measures/Miscellaneous Venous Thromboembolism VTE Risk Factors: Surgery VTE Contraindications: No Contraindications VTE Diagnosis: No VTE Type: NONE VTE Confirmed by (Test): NONE Beta Fransico Is Beta Fransico a Home Med? No Antibiotics Is Patient on Antibiotics? No
--- NOTE | 2016-12-24 08:29 | RADIOLOGY REPORT ---
EXAMINATION: ABDOMEN 2 VIEWS CLINICAL INFORMATION: Abdominal pain, nausea, vomiting, bloating. COMPARISON: 10/16/2016. TECHNIQUE: Supine and upright views of the abdomen are provided. FINDINGS: There are no dilated loops of small bowel. There are no air-fluid levels. Surgical chain sutures are present within the left midabdomen. There is a stable calcification within the right mid abdomen which is within the inferior right lobe of the liver The visualized lung bases are clear. The osseous structures are unremarkable. IMPRESSION: Unremarkable bowel gas pattern.
[2016-12-24 15:24] VITALS: BP 137/87
[2016-12-24 22:36] VITALS: BP 130/70
[2016-12-25 07:10] VITALS: BP 116/64
--- NOTE | 2016-12-25 08:07 | PN- General Surgery ---
See Addendum Subjective Subjective: Patient states she is tolerating sips of water and has had no further nausea or vomiting since 1 pm yesterday. She reports belching and denies and flatus or bms since 12/19. She reports she is ambulating in the halls. Objective Vital Signs and I&Os Vital Signs Date Time Temp Pulse Resp B/P B/P Pulse O2 O2 Flow FiO2 Mean Ox Delivery Rate 12/25 0710 98.2 62 19 116/64 98 12/24 2236 97.6 55 18 130/70 98 Room Air 12/24 1524 98.0 57 16 137/87 96 Room Air Intake & Output 12/25 1600 12/25 0800 12/25 0000 12/24 1600 12/24 0800 12/24 0000 Intake Total 460 450 480 600 Output Total 700 200 Balance 460 450 -220 400 Intake, IV 410 400 Intake, Oral 50 50 480 600 Number 0 Bowel Movements Output, 200 Emesis Output, Urine 700 Physical Exam: General: Resting comfortably, awake and alert in no acute distress. Cardiac: S1S2 appreciated. RRR. Pulm: CTA no w/r/r. Abdomen: Soft and nondistended, midline incision closed with dorcas healing well with no surrounding erythema or drainage noted. Absent bowel sounds and nontender to palpation. Extremities: No edema or calf tenderness b/l Current Medications: Current Medications Sig/Nicolle Start time Last Medication Dose Route Stop Time Status Admin Acetaminophen 325 MG Q6P PRN 12/20 1145 AC PO Dextrose/Sodium 1,000 ML Q20H 12/24 1645 AC 12/24 Chloride IV 1659 Diphenhydramine HCl 50 MG .STK-MED ONE 12/24 213 DC PO 12/24 2131 Diphenhydramine HCl 50 MG Q6 PRN 12/22 1400 AC 12/24 PO 2132 Hydrocortisone 1 MERLENE BID PRN 12/22 1400 AC 12/22 EXT 1427 Hydromorphone HCl 0.5 MG Q4P PRN 12/15 1800 AC 12/18 IV 1515 Omeprazole 40 MG DAILY AC 12/21 0700 AC 12/25 PO 0643 Ondansetron HCl 4 MG Q6P PRN 12/14 1930 AC IV Ondansetron HCl 4 MG Q6-PRN PRN 12/14 1715 AC 12/23 IV 1943 Oxycodone/ 1 TAB Q4-PRN PRN 12/20 1130 AC Acetaminophen PO Oxycodone/ 2 TAB Q4-6 PRN PRN 12/20 1130 AC 12/25 Acetaminophen PO 0643 Patient Medication 1 ED .STK-MED ONE 12/24 1313 DC Teaching ED 12/24 1314 Phenol 2 SPRAY Q2P PRN 12/16 1230 AC 12/17 EXT 1100 Results Last 48 Hours of Labs: Laboratory Tests 12/25 0617 Chemistry Sodium Pending Potassium Pending Chloride Pending Carbon Dioxide Pending Anion Gap Pending BUN Pending Creatinine Pending BUN/Creatinine Ratio Pending Hematology CBC w Diff Pending WBC Pending RBC Pending Hgb Pending Hct Pending MCV Pending MCH Pending RDW Pending Plt Count Pending MPV Pending PUBS MCHC Pending Assessment/Plan Assessment/Plan This is a 46-year-old female who is POD#11 s/p left breast lumpectomy for recurrent DCIS and distal gastrectomy, BII reconstruction with Banda enteroenterostomy for bleeding obstructing distal gastric tumor. - Continue with small sips of clears. - Continue IV fluids. - Encourage ambulation. - Continue current pain regimen. - GI and DVT ppx on board. - Hydrocortisone cream / benadryl prn itchy rash. - D/w . Core Measures/Miscellaneous Venous Thromboembolism VTE Risk Factors: Surgery VTE Contraindications: No Contraindications VTE Diagnosis: No VTE Type: NONE VTE Confirmed by (Test): NONE Beta Fransico Is Beta Fransico a Home Med? No Antibiotics Is Patient on Antibiotics? No
[2016-12-25 09:22] LABS: ABSOLUTE BASOPHIL COUNT 0.1 /CUMM (0.0-0.2); ABSOLUTE EOSINOPHIL COUNT 1.1 /CUMM (0.0-0.7); ABSOLUTE GRANULOCYTE CT 1.9 /CUMM (1.4-6.5); ABSOLUTE LYMPH COUNT 1.4 /CUMM (1.2-3.4); ABSOLUTE MONOCYTE COUNT 0.4 /CUMM (0.10-0.60); BASOPHIL % 1.6 % (0.0-2.0); HEMATOCRIT 33.7 % (37-47); MEAN CORPUSCULAR HGB 26.8 PG (27.0-31.0); MEAN CORPUSCULAR HGB CONC 31.5 G/DL (33.0-37.0); MEAN CORPUSCULAR VOLUME 85.3 FL (81.0-99.0); MEAN PLATELET VOLUME 8.6 FL (7.4-10.4); PLATELET COUNT 480 /CUMM (130-400); RBC DISTRIBUTION WIDTH 15.9 % (11.5-14.5); RED BLOOD CELL CT 3.95 /CUMM (4.20-5.40); WHITE BLOOD CELL COUNT 4.8 /CUMM (4.8-10.8)
[2016-12-25 14:26] VITALS: BP 124/72
[2016-12-25 22:18] VITALS: BP 140/78
[2016-12-26 06:36] VITALS: BP 120/70
--- NOTE | 2016-12-26 09:10 | PN- General Surgery ---
See Addendum Subjective Subjective: Feeling better. No nausea or vomiting at this time. Some belching. No flatus or bowel movement. Tolerating clear liquid diet in small amounts. Walking in the halls. Voiding without difficulty. Pain Well-controlled Objective Vital Signs and I&Os Vital Signs Date Time Temp Pulse Resp B/P B/P Pulse O2 O2 Flow FiO2 Mean Ox Delivery Rate 12/26 0636 98.1 66 20 120/70 98 Room Air 12/25 2218 97.6 77 20 140/78 99 12/25 1426 98.1 54 18 124/72 98 Room Air Intake & Output 12/26 1600 12/26 0800 12/26 0000 12/25 1600 12/25 0800 12/25 0000 Intake Total 520 560 640 460 450 Output Total 800 400 700 Balance -280 160 -60 460 450 Intake, IV 400 200 400 410 400 Intake, Oral 120 360 240 50 50 Number 0 0 0 Bowel Movements Output, Urine 800 400 700 Physical Exam: GEN: NAD, sitting up in bed CARD: S1S2 RRR PULM: CTAB ABD: soft, nt, nd, +bs, incision with dorcas: CDI EXT: calves soft nt Assessment/Plan Assessment/Plan A: 46F POD #12 status post left lumpectomy, distal gastrectomy, improving on Reglan ATC, tolerating clear liquid diet though no bowel function. P: - DVT ppx -Continue clear liquid diet. HL IVF once tolerating 300 mL per shift - prn pain meds - OOB, ambulate - will dw attending Core Measures/Miscellaneous Venous Thromboembolism VTE Risk Factors: Surgery VTE Contraindications: No Contraindications VTE Diagnosis: No VTE Type: NONE VTE Confirmed by (Test): NONE Beta Fransico Is Beta Fransico a Home Med? No Antibiotics Is Patient on Antibiotics? No
[2016-12-26 14:36] VITALS: BP 124/84
[2016-12-26 22:36] VITALS: BP 120/64
[2016-12-27 07:04] VITALS: BP 132/70
--- NOTE | 2016-12-27 07:27 | PN- Student ---
SANJU NEWSOME 12/27/16 0717: Subjective Subjective: Pt is a 46 y/o female who is POD #13 of a L lumpectomy w/ history of distal gastrectomy, GERD, & anxiety who is doing well with no complaints of pain, but notes minor complaints of bloating. Denies N/V/D. Is tolerating clear liquids. + ambulation. + flatus. ROS Neuro: Denies any WELLS. Respiratory: Denies any SOB. Cardiac: Denies any CP. GI: Denies any abdominal pain, states that she feels bloated but is no change from previous days. Notes heightened sensitivity around incision site, but does not describe as pain. Denies any heart burn. MSK: Denies any muscular or joint pain. Objective Objective: Vital Signs Date Time Temp Pulse Resp B/P B/P Pulse O2 O2 Flow FiO2 Mean Ox Delivery Rate 12/27 0704 98.3 54 20 132/70 99 12/26 2236 98.2 62 18 120/64 100 Room Air 12/26 1436 98.3 60 18 124/84 100 Room Air General: Alert & oriented x3. Appropraite mood & affect. Respiratory: CABL. No wheezes, rales, or rhonchi. No accessory muscle use. Cardiac: S1S1. Normal rate, regular rhythm. No murmrs, rubs, or gallops. No signs of edema prsent. GI: Abdomen is soft, mildly distended, nontender. + hypoactive BS in all 4 quadrants. Incision is clean and dry w/ no bandage covering. No erythema is noted around incision site. MSK: Calves are soft, tontender. Assessment/Plan Assessment: This is a 46 y/o female w/ significant PMHx of distal gastrectomy, GERD, & anxiety who is POD #13 of a L lumpectomy who is doing well with no complaints of pain, and some minor complaints of bloating. Plan: - Advance diet to fulls as tolerated. - Heparin SC DVT prophylaxis. - Discuss possible d/c. - Will discuss w/ attending. OWEN RICCI 12/27/16 0852: Assessment/Plan Assessment: Agree with above, will discuss diet advancement with Dr. Tony
== END 2016-12-27 13:55 | DRG 327 ==
LOC: 2NB 01:56 → SDA 01:56 → STS 07:00 → CBW.IIU 07:00 → SDA 07:00 → EDSTATUS 07:00 → CBW.IIU 09:00 → CBW.MAMMO 09:30 → ENRESERV 17:17 → ENTRNSPT 18:00 → 2NB 18:25 → CMPTRNSPT 18:29 → 2NB 12-27 13:55
PROVIDERS: Nurse Practitioner; Physician Assistant; Physician Assistant Surgical; Surgery; ADMIT Surgery
PROC: 0DB60ZZ Excision of Stomach, Open Approach (ICD-10-PCS; principal; 2016-12-14)
PROC: 0D160ZA Bypass Stomach to Jejunum, Open Approach (ICD-10-PCS; 2016-12-14)
PROC: 0HBU0ZX Excision of Left Breast, Open Approach, Diagnostic (ICD-10-PCS; 2016-12-14)
DX: R19.09 Other intra-abdominal and pelvic swelling, mass and lump (principal); K31.1 Adult hypertrophic pyloric stenosis; K25.3 Acute gastric ulcer without hemorrhage or perforation; D05.92 Unspecified type of carcinoma in situ of left breast; K21.9 Gastro-esophageal reflux disease without esophagitis; F41.9 Anxiety disorder, unspecified
CPT/HCPCS: 2NBP; 36415; 74020; 81025; 82436; 87086; 88305; 88307; J0131; J0690; J0696; J1170; J1644; J2001; J2405; J2550; J2765; J7042

== ENCOUNTER → 2017-11-01 | Day surgery (SDC) | payer OTHER ==
[~2017-11-01] VITALS: Ht 165.1 cm; Wt 63.5 kg
[~2017-11-01] MED LIST changes: +CALCIUM500 M1 PO; +CLINDAMYCIN HC300 M1 PO; +COLACE100 M1 PO; +COUMADIN5 M2 PO; +HYDROCHLOROTH12.5 M3 PO; +LEXAPRO10 M1 PO; +LOVENOX60 MG/0.1 SC; +NORVASC2.5 M1 PO; +PERCOCET 10-321 EACH PO; +PERCOCET 5-3251 EACH PO; +TYLENOL PM EX-1 EACH PO; +VALIUM5 M2 PO
--- NOTE | 2017-11-01 19:05 | Operative Report ---
Operative/Inv Procedure Report Surgery Date: 11/01/17 Name of Procedure: Exchange left breast tissue mail technician for permanent prosthesis Periprosthetic capsulotomy Right-sided mastopexy Right sided implant reVision left-sided breast reconstruction i.e. 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 At this point we will go permanent prosthesis. As well the patient will have significant asymmetry with the [place] right breast and she will undergo mastopexy with placement of breast implant for symmetry. She is well aware of the wrist having experienced one of them i.e. infection. We talked about infection bleeding pain numbness seroma hematoma/contracture and asymmetry. Scarring on the right mastopexy possibly unsightly or symptomatic open wound infection bleeding pain numbness hematoma seroma. This informed consent as well. She has no further questions regarding it today and signed an informed consent. She was marked in the standing position for a lollipop scar right sided mastectomy which was brought to the operating placed supine on the table intravenous antibiotics were given general anesthesia was established after the application of Venodyne boots. Chest was prepped and draped in usual sterile fashion. A nipple cover was placed on the right breast. An inframammary incision. To be released and this was done so and then re-tacked in a lower position. Vitamin was carried out. Tissue sizers were then used and it adequately accepted a 450 mL high-profile [place] textured implant. Of note multiple glove changes were performed the only person touching the implant was the operating surgeon Betsy saravia was used triple antibiotic irrigation with Betadine Betadine skin prep as well. Wounds were closed prior to correction the sutures were placed prior to placement of the implant. As well as 15 Amharic drain was brought out laterally. Wound was closed in layers. A right-sided mastopexy was then performed after measuring the patient in the sitting position. The 140 mL smooth subglandular implant. His crit at the end. The restrictions as well as multilayer suturing.
== END ==
LOC: STS 01:23
DX: Z85.3 Personal history of malignant neoplasm of breast (principal); Z90.12 Acquired absence of left breast and nipple; N65.1 Disproportion of reconstructed breast; I10 Essential (primary) hypertension; I73.00 Raynaud's syndrome without gangrene
CPT/HCPCS: 36415; 81025; J0690; J1580; J2250; L8600